=== PATIENT | male | born 2000 | race Caucasian/White ===

== ENCOUNTER 2018-02-13 14:35 | Emergency (ER) | payer OTHER ==
[2018-02-13 15:29] LABS: Absolute Lymphocytes (CBC) 1.4 K/uL (0.7-4.9); Absolute Monocytes 0.7 K/uL (0.1-1.3); Basophils % 0.5 % (0-1.3); Eosinophils % 1.5 % (0-4.4); Hematocrit 45.4 % (39.6-49.0); Lymphocytes % 11.2 % (15.3-44.8); MCH 31.4 pg (27.0-35.0); MCV 91.4 fL (80-100); MPV 7.3 fL (7.6-11.3); Monocytes % 5.7 % (3.3-12.3); RBC Red Blood Cell Count 4.97 M/uL (4.33-5.43)
[2018-02-13 15:35] LABS: Barbiturates NEGATIVE (NEGATIVE); Benzodiazepines NEGATIVE (NEGATIVE); Cocaine NEGATIVE (NEGATIVE); METHAMPHETAM NEGATIVE (NEGATIVE); Methadone NEGATIVE (NEGATIVE); Opiates NEGATIVE (NEGATIVE); Phencyclidine NEGATIVE (NEGATIVE); THC Cannibis POSITIVE (NEGATIVE)
[2018-02-13 15:37] LABS: Protime INR 0.96
[2018-02-13 16:11] LABS: ALT/SGPT 30 U/L (12-78); AST/SGOT 20 U/L (15-37); Albumin 4.8 g/dL (3.4-5.0); Alkaline Phosphatase 88 U/L (45-117); BUN Blood Urea Nitrogen 6 mg/dL (7-18); Bicarbonate 26 mmol/L (21-32); Bilirubin Direct < 0.1 mg/dL (0-0.2); Bilirubin Total 0.5 mg/dL (0.2-1.0); Glucose Level 108 mg/dL (74-106); Potassium 3.5 mmol/L (3.5-5.1); Protein, Total 8.3 g/dL (6.4-8.2); Sodium Level 141 mmol/L (136-145)
[2018-02-13 16:12] LABS: Alcohol Serum/Plasma < 3 mg/dL (0-3)
--- NOTE | 2018-02-13 16:19 | EKG ---
Test Date: 2018-02-13 Test Time: 15:04:12 History Department Chair: ZHEN MEASUREMENT RESULTS: Intervals: Rate: 127 ID: [id number] QRSD: 98 QT: 296 QTc: 430 [place]: P: 67 ID: [id number] QRS: 33 T: 45 INTERPRETIVE STATEMENTS: Sinus tachycardia Otherwise normal ECG No previous ECG available for comparison Electronically Signed On 02-13-18 16:19:39 CDT by Juan Miguel Garcia
[2018-02-13 16:38] LABS: Urine Blood NEGATIVE (NEG); Urine Glucose NEGATIVE (NEG); Urine Protein 2+ (NEG); Urine Specific Gravity 1.025 (1.005-1.030); Urine pH 6.5 (5.0-7.0)
--- NOTE | 2018-02-13 21:40 | ER ---
Nurse's Notes [facility] Name: Gerber Willis Jr Age: 17 yrs Sex: Male : 2000 Arrival Date: 02/13/2018 Time: 14:38 Bed 20 Private MD: Diagnosis: Intentional self-harm by other sharp object;Suicidal ideations;Borderline personality disorder Presentation: 02/13 14:51 Presenting complaint: Presenting complaint: Patient states: cut his girlfriend's name iw "Betty" into his left thigh, used a screw, superficial lacerations noted to left thigh. Pt denies suicidal ideation, denies homicidal ideation, states "I was just upset and after I did it, I thought about how stupid it was". 15:00 Transition of care: patient was not received from another setting of care. Onset of iw symptoms was February 13, 2018. Risk Assessment: Do you want to hurt yourself or someone else? Other: pt denies desire to hurt himself or someone else but has lacerations to left thigh from self mutilation. Initial Sepsis Screen: Does the patient meet any 2 criteria? No. Patient's initial sepsis screen is negative. Does the patient have a suspected source of infection? No. Patient's initial sepsis screen is negative. Care prior to arrival: None. 15:00 Method Of Arrival: Ambulatory iw 15:00 Method Of Arrival: Law Enforcement: Mayra MAYS iw 15:00 Acuity: MORIS 3 iw Triage Assessment: 15:00 General: Appears in no apparent distress. uncomfortable, Behavior is calm, cooperative. jl7 Pain: Denies pain. EENT: No signs and/or symptoms were reported regarding the EENT system. Neuro: Level of Consciousness is awake, alert, obeys commands, Oriented to person, place, time, situation. Cardiovascular: Heart tones S1 S2 present Patient's skin is warm and dry. Respiratory: Airway is patent Respiratory effort is even, unlabored, Respiratory pattern is regular, symmetrical, Breath sounds are clear bilaterally. GI: No signs and/or symptoms were reported involving the gastrointestinal system. : No signs and/or symptoms were reported regarding the genitourinary system. Derm: Skin is pink, warm \\T\\ dry. Musculoskeletal: No signs and/or symptoms reported regarding the musculoskeletal system. Injury Description: Pt made superficial scratches, spelling out Betty and 9-10[birth year]17 on left upper thigh. Historical: - Allergies: 15:07 NKA; iw - Home Meds: 15:07 paliperidone 3 mg oral tr24 1 tab once daily [Active]; benztropine 1 mg Oral tab 1 tab iw once daily [Active]; chlorpromazine 100 mg Oral tab [Active]; guanfacine 2 mg Oral tab 1 tab once daily [Active]; Concerta 36 mg Oral tr24 1 tab once daily [Active]; - PMHx: 15:07 ADD/ADHD; Bipolar disorder; iw - PSHx: 15:07 None; iw - Immunization history:: Adult Immunizations not up to date. - Social history:: Smoking status: Patient uses tobacco products, smokes one pack cigarettes per day. Patient uses street drugs, marijuana. - Ebola Screening: : Patient negative for fever greater than or equal to 101.5 degrees Fahrenheit, and additional compatible Ebola Virus Disease symptoms Patient denies exposure to infectious person Patient denies travel to an Ebola-affected area in the 21 days before illness onset No symptoms or risks identified at this time. Screenin:30 Abuse screen: Denies threats or abuse. Denies injuries from another. Nutritional jl7 screening: No deficits noted. Tuberculosis screening: No symptoms or risk factors identified. Fall Risk IV access (20 points). Total Cronin Fall Scale indicates No Risk (0-24 pts). Assessment: 15:00 General: See triage assessment. Pain: Denies pain. jl7 16:00 Reassessment: Patient and/or family updated on plan of care and expected duration. Pain jl7 level reassessed. Patient is alert, oriented x 3, equal unlabored respirations, skin warm/dry/pink. 17:00 Reassessment: Patient and/or family updated on plan of care and expected duration. Pain jl7 level reassessed. Patient is alert, oriented x 3, equal unlabored respirations, skin warm/dry/pink. 17:30 Reassessment: Pt requesting to go home. Explained to pt he will have to wait for [address] personnel to assess before we know how long he will be staying with us. Pt verbalized understanding. 18:30 Reassessment: Pt sitting on bed watching TV, no signs of distress noted. Pt requested jl7 to go outside a smoke. Explained to pt this is a non-smoking campus and offered a nicotine patch, Pt refuses nicotine patch at this time. 19:10 Reassessment: Report received from [facility] Solares. General: Appears in no apparent bs1 distress. comfortable, slender, Behavior is cooperative, anxious. Pain: Denies pain. Neuro: Level of Consciousness is awake, alert, obeys commands. Cardiovascular: Denies chest pain, shortness of breath, Heart tones S1 S2 present Capillary refill < 3 seconds Patient's skin is warm and dry. Respiratory: Airway is patent Trachea midline Respiratory effort is even, unlabored, Respiratory pattern is regular, symmetrical, Breath sounds are clear bilaterally. GI: No signs and/or symptoms were reported involving the gastrointestinal system. : No signs and/or symptoms were reported regarding the genitourinary system. EENT: No signs and/or symptoms were reported regarding the EENT system. Derm: Derm: Skin superficial skin lacerations noted to left thigh. Musculoskeletal:. Musculoskeletal: Circulation, motion, and sensation intact. Capillary refill < 3 seconds, Range of motion: intact in all extremities. 19:58 Reassessment: Left thigh cleansed with NS, wrapped in gauze/kerlix. Patient tolerated/. bs1 21:00 Reassessment: No changes from previously documented assessment. Patient and/or family bs1 updated on plan of care and expected duration. Pain level reassessed. Patient is alert, oriented x 3, equal unlabored respirations, skin warm/dry/pink. 22:15 Reassessment: No changes from previously documented assessment. Patient and/or family bs1 updated on plan of care and expected duration. Pain level reassessed. Patient is alert, oriented x 3, equal unlabored respirations, skin warm/dry/pink. Waiting for family to pick patient up. Informed patient of dc instructions. Gave instructions to follow up with [place]/PCP. Patient states understanding of POC. Psych: 15:00 Subjective: Patient's mood is Calm Delusions are denied, Hallucinations are denied jl7 Having thoughts of denies suicidal and/or homicidal ideation. Objective: Patient is cooperative, Speech is normal, Affect is appropriate, Patient has mutilated themselves by Pt scratched ex-girlfriends name in right upper thigh. Interventions: Removed personal items and placed in bag. Patient placed in hospital gown. Searched person for dangerous items. Urine collected and sent for urine drug test. Belonging list filled out. Suicide Risk Assessment: Sad Person Scale: Sex of patient: Male: Score 1 point. Age of patient: Score 1 point if patient 15-34. Depression: Score 1 point if signs of depression are present. Previous Attempt: Score 0 point if patient has not previously attempted suicide. Substance Abuse: Score 1 point if patient abuses alcohol or drugs. Rational Thinking: Score 0 point if patient has rational thinking. Social Support: Score 0 if social support is present/available. Organized Plan: Score 0 if patient did not have an organized plan in place. Relationship: Score 1 point if patient is , , , or for a single male Chronic Sickness: Score 0 point if patient does not have a chronic illness, debilitating, or severe disorder. TOTAL POINTS: If total points are 5-6, proposed clinical action is to strongly consider hospitalization, depending upon confidence in the follow-up arrangement. Implement suicide precautions. Safety Checks: Personal items have been removed. Door is open. No visitors are present at this time. Patient uses marijuana "Occasionally". Commitment: Patient will be an involuntary commitment. Vital Signs: 15:00 BP 122 / 58; Pulse 115; Resp 16; Temp 98.5; Pulse Ox 97% ; Weight 95.25 kg; Height 5 jl7 ft. 11 in. (180.34 cm); Pain 0/10; 19:30 BP 115 / 77; Pulse 95; Resp 19; Temp 98.8(O); Pulse Ox 97% on R/A; bs1 22:20 BP 133 / 81; Pulse 84; Resp 18; Temp 98.6(O); Pulse Ox 95% on R/A; Pain 0/10; bs1 15:00 Body Mass Index 29.29 (95.25 kg, 180.34 cm) jl7 ED Course: 14:38 Patient arrived in ED. iw 14:39 Roslyn Hale, RN is Primary Nurse. iw 14:43 Sujahta Valdez, [facility] is Primary Nurse. jl7 14:49 Sacha Witt PA is PHCP. cp 14:49 Jaxson Quinonez MD is Attending Physician. cp 15:00 Arm band placed on right wrist. jl7 15:00 Patient has correct armband on for positive identification. Placed in gown. Bed in low jl7 position. Side rails up X 1. Warm blanket given. Patient is placed in psych hold. 15:03 Triage completed. iw 15:11 EKG done, by lab support service tech. reviewed by Sacha WILKINSON. 3 15:30 Initial lab(s) drawn, by me, sent to lab. Urine collected: clean catch specimen, clear. jl7 Inserted saline lock: 20 gauge in right antecubital area, using aseptic technique. Blood collected. 16:00 Safety checks: Items removed: yes. Door open/sign placed on door: yes. Family/friend mp1 present: no. Sitter present: Yes. 16:15 Safety checks: Items removed: yes. Door open/sign placed on door: yes. Family/friend mp1 present: no. Sitter present: Yes. 16:30 Safety checks: Items removed: yes. Door open/sign placed on door: yes. Family/friend mp1 present: no. Sitter present: Yes. 16:45 Safety checks: Items removed: yes. Door open/sign placed on door: yes. Family/friend mp1 present: yes. Sitter present: Yes. 17:00 Safety checks: Items removed: yes. Door open/sign placed on door: yes. Family/friend mp1 present: yes. Sitter present: Yes. 17:00 called and spoke with Liz at the [facility] to page out one of her screeners eb to come evaluate the patient for potential transfer. 17:15 Safety checks: Items removed: yes. Door open/sign placed on door: yes. Family/friend mp1 present: no. Sitter present: Yes. 17:30 Safety checks: Items removed: yes. Door open/sign placed on door: yes. Family/friend mp1 present: no. Sitter present: Yes. 17:45 Safety checks: Items removed: yes. Door open/sign placed on door: yes. Family/friend mp1 present: no. Sitter present: Yes. 18:00 Safety checks: Items removed: yes. Door open/sign placed on door: yes. Family/friend mp1 present: no. Sitter present: Yes. 18:15 Safety checks: Items removed: yes. Door open/sign placed on door: yes. Family/friend mp1 present: yes. no. Sitter present: Yes. 18:17 Breezy Malone MD is Attending Physician. cp 18:29 Safety checks: Items removed: yes. Door open/sign placed on door: yes. Family/friend mp1 present: yes. Sitter present: Yes. 18:45 Safety checks: Items removed: yes. Door open/sign placed on door: yes. Family/friend mp1 present: no. Sitter present: Yes. 18:49 called and spoke with Diamond at the [facility] to check on the ETA of the eb screener. She says she has no way on checking when they will be here but that she will notify the screener that i am calling for ETA. 18:56 Safety checks: Items removed: yes. Door open/sign placed on door: yes. Family/friend mp1 present: yes. no. Sitter present: Yes. 19:08 Safety Checks: Personal items have been removed. The door is open or patient has been er placed in a hallway bed/chair. A family member and/or friend is present and encouraged to stay. Sitter present at this time. 19:10 Primary Nurse role handed off by Sujatha Valdez RN rg2 19:30 Safety Checks: Personal items have been removed. The door is open or patient has been er placed in a hallway bed/chair. There are no family/friend visitors at this time Sitter present at this time. Pt is sleeping. 19:36 Nelly Casper RN is Primary Nurse. bs1 19:49 Safety Checks: Personal items have been removed. The door is open or patient has been er placed in a hallway bed/chair. Sitter present at this time. Vitals signs taken. 20:00 Safety Checks: Personal items have been removed. The door is open or patient has been er placed in a hallway bed/chair. There are no family/friend visitors at this time Sitter present at this time. Pt is watching tv. 20:16 Safety Checks: Personal items have been removed. The door is open or patient has been er placed in a hallway bed/chair. Sitter present at this time. 20:30 Safety Checks: Personal items have been removed. The door is open or patient has been er placed in a hallway bed/chair. There are no family/friend visitors at this time Sitter present at this time. Pt is sleeping. 20:45 Safety Checks: Personal items have been removed. The door is open or patient has been er placed in a hallway bed/chair. There are no family/friend visitors at this time Sitter present at this time. Pt went to the restroom. 20:59 Safety Checks: Personal items have been removed. The door is open or patient has been er placed in a hallway bed/chair. There are no family/friend visitors at this time Sitter present at this time. Pt is awake, watching tv. 21:14 Safety Checks: Personal items have been removed. The door is open or patient has been er placed in a hallway bed/chair. There are no family/friend visitors at this time Sitter present at this time. Pt is watching tv. 21:31 Safety Checks: Personal items have been removed. The door is open or patient has been er placed in a hallway bed/chair. There are no family/friend visitors at this time Sitter present at this time. pt watching tv. 21:42 Safety Checks: Personal items have been removed. The door is open or patient has been er placed in a hallway bed/chair. There are no family/friend visitors at this time Sitter present at this time. pt is awake. 21:59 Safety Checks: Personal items have been removed. The door is open or patient has been er placed in a hallway bed/chair. There are no family/friend visitors at this time Sitter present at this time. 22:14 Safety Checks: Personal items have been removed. The door is open or patient has been er placed in a hallway bed/chair. There are no family/friend visitors at this time Sitter present at this time. 22:21 No provider procedures requiring assistance completed. IV discontinued, bleeding bs1 controlled, No redness/swelling at site. Pressure dressing applied. 22:25 Safety Checks: Personal items have been removed. The door is open or patient has been er placed in a hallway bed/chair. A family member and/or friend is present and encouraged to stay. Sitter present at this time. Administered Medications: No medications were administered Outcome: 21:39 Discharge ordered by MD. chan 22:21 Condition: stable bs1 22:33 Patient left the ED. bs1 Signatures: Beka Dunbar rg2 Roslyn Hale, RN RN Sacha Witt PA PA cp Leal, Jahala RN RN jl7 Breezy Malone MD MD Nelly Casper RN RN bs1 Aneta Camacho Shakira 3 Ayanna Barrett mp1 Natalia Alvarez Corrections: (The following items were deleted from the chart) 15:03 14:51 Presenting complaint: [facility] 17:06 16:45 Safety checks: Items removed: yes. Door open/sign placed on door: yes. mp1 Family/friend present: no. Sitter present: Yes. mp1 18:46 18:30 General: Appears in no apparent distress. uncomfortable, Behavior is calm, jl7 cooperative, jl7 19:58 19:10 Derm: Skin is intact, bs1 bs1
--- NOTE | 2018-02-13 21:40 | EDPHYS ---
Physician Documentation [facility] Name: Gerber Willis Jr Age: 17 yrs Sex: Male : 2000 Arrival Date: 02/13/2018 Time: 14:38 Bed 20 Private MD: ED Physician Breezy Malone HPI: 02/13 15:20 This 17 yrs old Male presents to ER via Law Enforcement with complaints of cp Psych Problem. 15:20 The patient presents to the emergency department with suicide ideation. Onset: The cp symptoms/episode began/occurred today. Past psychiatric history: Prior diagnosis: bipolar disorder, Psychiatric medications include: none. Patient was brought to ED by law enforcement after being called by ex-girlfriend of patient. Law enforcement report patient told them he wanted to kill himself. Patient reports he became upset today due to recent break-up with girlfriend and carved her name and date they met in left upper leg. Historical: - Allergies: 15:07 NKA; iw - Home Meds: 15:07 paliperidone 3 mg oral tr24 1 tab once daily [Active]; benztropine 1 mg Oral tab 1 tab iw once daily [Active]; chlorpromazine 100 mg Oral tab [Active]; guanfacine 2 mg Oral tab 1 tab once daily [Active]; Concerta 36 mg Oral tr24 1 tab once daily [Active]; - PMHx: 15:07 ADD/ADHD; Bipolar disorder; iw - PSHx: 15:07 None; iw - Immunization history:: Adult Immunizations not up to date. - Social history:: Smoking status: Patient uses tobacco products, smokes one pack cigarettes per day. Patient uses street drugs, marijuana. - Ebola Screening: : Patient negative for fever greater than or equal to 101.5 degrees Fahrenheit, and additional compatible Ebola Virus Disease symptoms Patient denies exposure to infectious person Patient denies travel to an Ebola-affected area in the 21 days before illness onset No symptoms or risks identified at this time. ROS: 15:25 Constitutional: Negative for body aches, chills, fever, poor PO intake. cp 15:25 Eyes: Negative for injury, pain, redness, and discharge. cp 15:25 ENT: Negative for drainage from ear(s), ear pain, sore throat, difficulty swallowing, difficulty handling secretions. 15:25 Cardiovascular: Negative for chest pain, palpitations. 15:25 Respiratory: Negative for cough, shortness of breath, wheezing. 15:25 Abdomen/GI: Negative for abdominal pain, nausea, vomiting, and diarrhea. 15:25 Skin: Positive for laceration(s), of the left upper anterior leg. 15:25 Neuro: Negative for altered mental status, loss of consciousness. 15:25 All other systems are negative. Exam: 15:15 ECG was reviewed by the Attending Physician. cp 15:30 Constitutional: The patient appears in no acute distress, alert, awake, non-toxic, well cp developed, well nourished. 15:30 Head/Face: Normocephalic, atraumatic. cp 15:30 Eyes: Periorbital structures: appear normal, Conjunctiva: normal, no exudate, no injection, Lids and lashes: appear normal, bilaterally. 15:30 ENT: External ear(s): are unremarkable, Nose: is normal, Mouth: is normal, Posterior pharynx: is normal, airway is patent, no erythema, no exudate. 15:30 Neck: ROM/movement: is normal, is supple, without pain, no range of motions limitations, no nuchal rigidity. 15:30 Chest/axilla: Inspection: normal, Palpation: is normal, no crepitus, no tenderness. 15:30 Cardiovascular: Rate: normal, Rhythm: regular. 15:30 Respiratory: the patient does not display signs of respiratory distress, Respirations: normal, no use of accessory muscles, no retractions, no splinting, no tachypnea, labored breathing, is not present, Breath sounds: are clear throughout, no decreased breath sounds, no stridor, no wheezing. 15:30 Abdomen/GI: Inspection: abdomen appears normal, Palpation: abdomen is soft and non-tender, in all quadrants. 15:30 Skin: injury, laceration(s), superficial words "AYLIN 04-17-17" anterior aspect left upper leg, that can be described as without bleeding. 21:36 Psych: Behavior/mood is pt seen and examined by me at 2140. Affect is calm, Oriented to gs person, place, time, Patient has no thoughts/intents to harm self or others. said regrets injury to self has cut self before and exactly like this time was truly in frustration not intending to kill self, Judgement / Insight is normal. Delusions/hallucinations are not present. pts crisis has terminated wants to go home, there is no access to firearms says will seek counseling and will go home with parents. Vital Signs: 15:00 BP 122 / 58; Pulse 115; Resp 16; Temp 98.5; Pulse Ox 97% ; Weight 95.25 kg; Height 5 jl7 ft. 11 in. (180.34 cm); Pain 0/10; 19:30 BP 115 / 77; Pulse 95; Resp 19; Temp 98.8(O); Pulse Ox 97% on R/A; bs1 22:20 BP 133 / 81; Pulse 84; Resp 18; Temp 98.6(O); Pulse Ox 95% on R/A; Pain 0/10; bs1 15:00 Body Mass Index 29.29 (95.25 kg, 180.34 cm) jl7 MDM: 14:50 Patient medically screened. 17:00 Data reviewed: vital signs, nurses notes, EKG, and as a result, I will will contact [facility] for evaluation. 02/13 14:56 Order name: Acetaminophen; Complete Time: 16:53 02/13 14:56 Order name: Basic Metabolic Panel; Complete Time: 16:53 02/13 14:56 Order name: CBC with Diff; Complete Time: 16:53 02/13 14:56 Order name: ETOH Level; Complete Time: 16:53 02/13 14:56 Order name: Hepatic Function; Complete Time: 16:53 02/13 14:56 Order name: PT-INR; Complete Time: 16:53 02/13 14:56 Order name: Ptt, Activated; Complete Time: 16:53 02/13 14:56 Order name: Salicylate; Complete Time: 16:53 02/13 14:56 Order name: Urine Drug Screen; Complete Time: 16:53 02/13 14:56 Order name: EKG; Complete Time: 14:57 02/13 14:56 Order name: EKG - Nurse/Tech; Complete Time: 16:12 02/13 14:56 Order name: IV Saline Lock; Complete Time: 16:12 02/13 15:38 Order name: Urine Dipstick--Ancillary (enter results); Complete Time: 16:53 eb 02/13 16:45 Order name: Diet Regular; Complete Time: 16:45 aj 02/13 14:56 Order name: Labs collected and sent; Complete Time: 16:12 cp 02/13 14:56 Order name: Urine Dipstick-Ancillary (obtain specimen); Complete Time: 16:12 cp 02/13 17:48 Order name: Wound Care: please clean and dress wound; Complete Time: 19:58 cp EC:15 Rate is 127 beats/min. Rhythm is regular. NC interval is normal. QRS interval is cp normal. QT interval is normal. Interpreted by me. Reviewed by me. Administered Medications: No medications were administered Disposition: 02/13/18 21:39 Discharged to Home. Impression: Intentional self-harm by other sharp object, Suicidal ideations, Borderline personality disorder. - Condition is Stable. - Discharge Instructions: Depression, Adult, Laceration Care, Adult, [id number], No-harm Safety Contract, Borderline Personality Disorder. - Medication Reconciliation Form, Thank You Letter, Antibiotic Education, Prescription Opioid Use form. - Follow up: Private Physician; When: 2 - 3 days; Reason: Re-evaluation by your physician. Addendum: 02/20/2018 07:13 Co-signature as Attending Physician, Breezy Malone MD. g s Signatures: Dispatcher [employer] Roslyn Haskins RN RN Sacha Goel PA PA cp Leal, Jahala, RN RN jl7 Breezy Malone MD MD gs Salazar, Brittany, RN RN bs1 Corrections: (The following items were deleted from the chart) 02/13 22:33 21:39 02/13/2018 21:39 Discharged to Home. Impression: Intentional self-harm by other bs1 sharp object; Suicidal ideations; Borderline personality disorder. Condition is Stable. Forms are Medication Reconciliation Form, Thank You Letter, Antibiotic Education, Prescription Opioid Use. Follow up: Private Physician; When: 2 - 3 days; Reason: Re-evaluation by your physician. gs
== END 2018-02-13 22:33 | disposition home or self-care (01) ==
LOC: ER 14:35
DX: F60.3 Borderline personality disorder (principal); X78.8XXA Intentional self-harm by other sharp object, initial encounter; R45.851 Suicidal ideations; F31.9 Bipolar disorder, unspecified; F17.210 Nicotine dependence, cigarettes, uncomplicated; Y93.89 Activity, other specified; Y92.9 Unspecified place or not applicable; Y99.9 Unspecified external cause status
CPT/HCPCS: 36415; 80048; 80076; 80307; 80320; 80329; 81003; 85025; 85610; 85730; 93005; 99284

== ENCOUNTER 2020-02-07 02:52 | Emergency (ER) | payer OTHER ==
--- OUTSIDE RECORDS SUMMARY | 2020-02-07 02:54 | XMS REPORT | Continuity of Care Document ---
:2000 Author Organization [facility] t Address [address] [place] [address] Care Team Providers Name Role Phone Lina KING S Attending Clinician Problems This patient has no known problems. Allergies, Adverse Reactions, Alerts This patient has no known allergies or adverse reactions. Medications This patient has no known medications. Procedures This patient has no known procedures. Encounters Start End Encounter Admission Attending Care Care Encounter Source Date/Time Date/Time Type Type Clinicians Facility Department ID 2019-10-28 2019-10-28 Emergency [facility] [id number] 03:52:43 04:10:00 Juan Antonio Sotelo [id number] [place] [id number] [place] [id number] Results This patient has no known results.
[2020-02-07] MEDS ORDERED: MUPIROCIN 2% OINT 22GM TUBE TOP ONE (03:29)
[2020-02-07] MEDS ORDERED: IBUPROFEN 200 MG TAB PO ONE (03:29)
[2020-02-07] MEDS ORDERED: SMZ./TMP. 800/160 MG TABLET ONE (03:29)
[2020-02-07] MEDS ORDERED: DOXYCYCLINE 100 MG CAP PO ONE (03:29)
--- NOTE | 2020-02-07 03:33 | EDPHYS ---
Physician Documentation [facility] Name: Gerber Willis Jr Age: 19 yrs Sex: Male : 2000 Arrival Date: 02/07/2020 Time: 02:55 Bed 7 Private MD: LILLIAN Physician Sacha Arita HPI: 02/06 03:22 This 19 yrs old Male presents to ER via Ambulatory with complaints of Insect yvette Bite. 03:22 The patient presents with an abscess of the back, The patient presents with cellulitis yvette of the back. Description: The affected area is small, confluent, localized, erythematous, fluctuant. Onset: The symptoms/episode began/occurred 3 day(s) ago. Possible cause(s): unknown, insect sting. Associated signs and symptoms: The patient has no apparent associated signs or symptoms. Modifying factors: the symptoms are alleviated by remaining still, the symptoms are aggravated by pressure, squeezing the lesion and expressing the contents, touching. Severity of symptoms: At their worst the symptoms were mild, in the emergency department the symptoms are unchanged. The patient has not experienced similar symptoms in the past. Historical: - Allergies: 02:59 NKA; sg - PMHx: 02:59 ADD/ADHD; Bipolar disorder; sg - PSHx: 02:59 None; sg - Immunization history:: Adult Immunizations up to date. - Social history:: Smoking status: Patient denies any tobacco usage or history of. - Family history:: not pertinent. ROS: 03:22 Constitutional: Negative for fever, chills, and weight loss, Eyes: Negative for injury, yvette pain, redness, and discharge, ENT: Negative for injury, pain, and discharge, Neck: Negative for injury, pain, and swelling, Cardiovascular: Negative for chest pain, palpitations, and edema, Respiratory: Negative for shortness of breath, cough, wheezing, and pleuritic chest pain, Abdomen/GI: Negative for abdominal pain, nausea, vomiting, diarrhea, and constipation, Back: Negative for injury and pain, : Negative for injury, bleeding, discharge, and swelling, MS/Extremity: Negative for injury and deformity, Neuro: Negative for headache, weakness, numbness, tingling, and seizure, Psych: Negative for depression, anxiety, suicide ideation, homicidal ideation, and hallucinations, Allergy/Immunology: Negative for hives, rash, and allergies, Endocrine: Negative for neck swelling, polydipsia, polyuria, polyphagia, and marked weight changes, Hematologic/Lymphatic: Negative for swollen nodes, abnormal bleeding, and unusual bruising. 03:22 Skin: Positive for cellulitis, erythema, swelling, of the right mid back. Exam: 03:22 Constitutional: This is a well developed, well nourished patient who is awake, alert, yvette and in no acute distress. Head/Face: Normocephalic, atraumatic. Eyes: Pupils equal round and reactive to light, extra-ocular motions intact. Lids and lashes normal. Conjunctiva and sclera are non-icteric and not injected. Cornea within normal limits. Periorbital areas with no swelling, redness, or edema. ENT: Nares patent. No nasal discharge, no septal abnormalities noted. Tympanic membranes are normal and external auditory canals are clear. Oropharynx with no redness, swelling, or masses, exudates, or evidence of obstruction, uvula midline. Mucous membranes moist. Neck: Trachea midline, no thyromegaly or masses palpated, and no cervical lymphadenopathy. Supple, full range of motion without nuchal rigidity, or vertebral point tenderness. No Meningismus. Chest/axilla: Normal chest wall appearance and motion. Nontender with no deformity. No lesions are appreciated. Cardiovascular: Regular rate and rhythm with a normal S1 and S2. No gallops, murmurs, or rubs. Normal PMI, no JVD. No pulse deficits. Respiratory: Lungs have equal breath sounds bilaterally, clear to auscultation and percussion. No rales, rhonchi or wheezes noted. No increased work of breathing, no retractions or nasal flaring. Abdomen/GI: Soft, non-tender, with normal bowel sounds. No distension or tympany. No guarding or rebound. No evidence of tenderness throughout. Back: No spinal tenderness. No costovertebral tenderness. Full range of motion. Male : Normal genitalia with no discharge or lesions. MS/ Extremity: Pulses equal, no cyanosis. Neurovascular intact. Full, normal range of motion. Neuro: Awake and alert, GCS 15, oriented to person, place, time, and situation. Cranial nerves II-XII grossly intact. Motor strength 5/5 in all extremities. Sensory grossly intact. Cerebellar exam normal. Normal gait. Psych: Awake, alert, with orientation to person, place and time. Behavior, mood, and affect are within normal limits. 03:22 Skin: abscess, that is small, approximately 1.5 cm(s), with fluctuance, with induration, with pointing, cellulitis, that is minimal, induration, that is mild is noted, that is moderate is noted, injury, is not appreciated, no rash present. Turgor: is excellent. Vital Signs: 03:16 BP 112 / 67; Pulse 85; Resp 18; Temp 98.6; Pulse Ox 95% on R/A; Height 5 ft. 11 in. mg2 (180.34 cm); MDM: 03:11 Patient medically screened. yvette 03:30 Differential diagnosis: abscess, cellulitis, insect bite. Data reviewed: vital signs, yvette nurses notes. Data interpreted: awake overnight monitor: not applicable for this patient encounter. rate is 85 beats/min, rhythm is regular, Pulse oximetry: on room air is 95 %. Counseling: I had a detailed discussion with the patient and/or guardian regarding: the historical points, exam findings, and any diagnostic results supporting the discharge/admit diagnosis, the need for outpatient follow up, for definitive care, a general surgeon. 03:34 ED course: explained moist warm compresses, follow up or return if symptoms worsen or yvette persist. Administered Medications: 03:23 Drug: Doxycycline 200 mg Route: PO; mg2 03:38 Follow up: Response: No adverse reaction; Medication administered at discharge. mg2 03:23 Drug: Bactrim (160 mg-800 mg (DS) 1 tablet Route: PO; mg2 03:38 Follow up: Response: No adverse reaction; Medication administered at discharge. mg2 03:23 Drug: Motrin 600 mg Route: PO; mg2 03:38 Follow up: Response: No adverse reaction; Medication administered at discharge. mg2 03:23 Drug: Bactroban Ointment 2 % 1 application Route: Topical; Site: affected area; mg2 03:38 Follow up: Response: No adverse reaction mg2 Disposition: 02/07/20 03:32 Discharged to Home. Impression: Cutaneous abscess of back [any part, except buttock]. - Condition is Stable. - Discharge Instructions: Skin Abscess, Cellulitis, Adult, Skin Abscess, [id number], Cellulitis, Adult, [id number]. - Prescriptions for Bactroban 2 % Topical Ointment - Apply to affected area 1 application by TOPICAL route every 12 hours; 15 gram. Doxycycline Hyclate 100 mg Oral Tablet - take 1 tablet by ORAL route every 12 hours; 20 tablet. Bactrim DS 800- 160 mg Oral Tablet - take 1 tablet by ORAL route every 12 hours for 10 days; 20 tablet. Ibuprofen 600 mg Oral Tablet - take 1 tablet by ORAL route every 6 hours As needed take with food; 20 tablet. - Medication Reconciliation Form, Thank You Letter, Antibiotic Education, Prescription Opioid Use form. - Follow up: Private Physician; When: 2 - 3 days; Reason: Recheck today's complaints, Continuance of care, Re-evaluation by your physician. Follow up: Torito Allan MD; When: 2 - 3 days; Reason: Recheck today's complaints, Re-evaluation by your physician. - Problem is new. - Symptoms have improved. Signatures: Russel Choudhury RN RN sg Sacha Arita MD MD cha Gardose, Michele, RN RN mg2 Corrections: (The following items were deleted from the chart) 03:39 03:32 02/07/2020 03:32 Discharged to Home. Impression: Cutaneous abscess of back [any mg2 part, except buttock]. Condition is Stable. Forms are Medication Reconciliation Form, Thank You Letter, Antibiotic Education, Prescription Opioid Use. Follow up: Private Physician; When: 2 - 3 days; Reason: Recheck today's complaints, Continuance of care, Re-evaluation by your physician. Follow up: Torito Allan; When: 2 - 3 days; Reason: Recheck today's complaints, Re-evaluation by your physician. Problem is new. Symptoms have improved. yvette
--- NOTE | 2020-02-07 03:33 | ER ---
Nurse's Notes [facility] Name: Gerber Willis Jr Age: 19 yrs Sex: Male : 2000 Arrival Date: 02/07/2020 Time: 02:55 Bed 7 Private MD: Diagnosis: Cutaneous abscess of back [any part, except buttock] Presentation: 02/06 02:59 Onset of symptoms was February 07, 2020. Care prior to arrival: None. 02:59 Acuity: MORIS 4 sg 02:59 Chief complaint: Patient states: I think some sore of bug bit me, I have this spot that sg I need the doctor to look at. Coronavirus screen: Proceed with normal triage. Ebola Screen: Patient negative for fever greater than or equal to 101.5 degrees Fahrenheit, and additional compatible Ebola Virus Disease symptoms Patient denies exposure to infectious person. Patient denies travel to an Ebola-affected area in the 21 days before illness onset. No symptoms or risks identified at this time. Initial Sepsis Screen: Does the patient meet any 2 criteria? No. Patient's initial sepsis screen is negative. Does the patient have a suspected source of infection? No. Patient's initial sepsis screen is negative. Risk Assessment: Do you want to hurt yourself or someone else? Patient reports no desire to harm self or others. 02:59 Method Of Arrival: Ambulatory sg Triage Assessment: 03:16 Bite description: animal information: vaccination(s) is unknown. Bite description: bite mg2 sustained to back by an unknown animal. General: Appears in no apparent distress. comfortable. Historical: - Allergies: 02:59 NKA; sg - PMHx: 02:59 ADD/ADHD; Bipolar disorder; sg - PSHx: 02:59 None; sg - Immunization history:: Adult Immunizations up to date. - Social history:: Smoking status: Patient denies any tobacco usage or history of. - Family history:: not pertinent. Screenin:16 Abuse screen: Denies threats or abuse. Abuse screen: Denies injuries from another. mg2 Nutritional screening:. Tuberculosis screening: No symptoms or risk factors identified. Fall Risk None identified. Assessment: 03:15 General: Appears in no apparent distress. comfortable, Behavior is calm, cooperative. mg2 Pain: Complains of pain in back. Neuro: Level of Consciousness is awake, alert, obeys commands, Oriented to person, place, time, situation. Cardiovascular: Capillary refill < 3 seconds Patient's skin is warm and dry. Respiratory: Airway is patent Respiratory effort is even, unlabored, Respiratory pattern is regular, symmetrical. GI: No signs and/or symptoms were reported involving the gastrointestinal system. : No signs and/or symptoms were reported regarding the genitourinary system. EENT: No signs and/or symptoms were reported regarding the EENT system. Derm: Skin is pink, warm \T\ dry. Abscess located on back is quarter sized, is hot to touch, is red, is raised. Musculoskeletal: Circulation, motion, and sensation intact. Capillary refill < 3 seconds. 03:39 Derm: Skin. mg2 Vital Signs: 03:16 BP 112 / 67; Pulse 85; Resp 18; Temp 98.6; Pulse Ox 95% on R/A; Height 5 ft. 11 in. mg2 (180.34 cm); ED Course: 02:55 Patient arrived in ED. bp1 02:59 Arm band placed on. sg 03:00 Triage completed. sg 03:01 Sacha Arita MD is Attending Physician. yvette 03:15 Carroll Cuellar, [place] is Primary Nurse. mg2 03:16 Patient has correct armband on for positive identification. mg2 03:16 No provider procedures requiring assistance completed. Patient did not have IV access mg2 during this emergency room visit. 03:31 Torito Allan MD is Referral Physician. yvette Administered Medications: 03:23 Drug: Doxycycline 200 mg Route: PO; mg2 03:38 Follow up: Response: No adverse reaction; Medication administered at discharge. mg2 03:23 Drug: Bactrim (160 mg-800 mg (DS) 1 tablet Route: PO; mg2 03:38 Follow up: Response: No adverse reaction; Medication administered at discharge. mg2 03:23 Drug: Motrin 600 mg Route: PO; mg2 03:38 Follow up: Response: No adverse reaction; Medication administered at discharge. mg2 03:23 Drug: Bactroban Ointment 2 % 1 application Route: Topical; Site: affected area; mg2 03:38 Follow up: Response: No adverse reaction mg2 Outcome: 03:32 Discharge ordered by . yvette 03:39 Discharged to home ambulatory. mg2 03:39 Condition: stable 03:39 Discharge instructions given to patient, Instructed on discharge instructions, follow up and referral plans. medication usage, Demonstrated understanding of instructions, follow-up care, medications, wound care, Prescriptions given X 4. 03:39 Patient left the ED. mg2 Signatures: Russel Choudhury RN RN sg Anderson, Corey, MD MD cha Gardose, Michele, RN RN mg2 Nelly Spain
[2020-02-07 03:47] VITALS: BP 112/67; TEMP 98.6; O2SAT 95
== END 2020-02-07 03:39 | disposition home or self-care (01) ==
LOC: ER 02:52
DX: L02.212 Cutaneous abscess of back [any part, except buttock and flank] (principal)
CPT/HCPCS: 99283

== ENCOUNTER 2020-07-26 21:50 | Observation (INO) | payer OTHER ==
--- OUTSIDE RECORDS SUMMARY | 2020-07-26 21:52 | XMS REPORT | Summary of Care ---
:2000 Author Organization [facility] - [facility] Address [address] [place] [id number] Care Team Providers Name Role Phone Pcp, Does Not Have A Primary Care Provider Reason for Visit Reason Comments Cough Auth/Cert Status Reason Specialty Diagnoses / Referred By Referred To Procedures Contact Contact Emergency [facility]ency Dept [address] [place] [address] Fax: Encounter Details Date Type Department Care Team Description 06/28/2020 Emergency [facility]-Emergency Juan Antonio Mills S, Acute bro nchitis, unspecified organism (Primary Dx); Department Tobacco use [address] [place] [address] Dr [address] [place] [address] [id number] [place] [address] [phone] Allergies Active Allergy Reactions Severity Noted Date Comments Aspirin (Bulk) Swelling 10/27/2016 Tramadol Other - See comments 10/27/2016 Shakes documented as of this encounter (statuses as of 06/28/2020) Medications Medication Sig Dispensed Refills Start Date End Date Status CIPRODEX 0.3-0.1 % OTIC 6 drops to 1 emerita 0 03/17/2007 Active DRPS infetced ear bid for 7 days methylphenidate Take 36 mg by 0 Active (CONCERTA) 36 mg 24 hr mouth every tablet morning. paliperidone (INVEGA) 3 Take 3 mg by 0 Active mg 24 hr tablet mouth daily. benztropine (COGENTIN) Take 1 mg by 0 Active 1 mg tablet mouth 2 (two) times daily. chlorproMAZINE Take 100 mg by 0 Active (THORAZINE) 100 mg mouth 3 (three) tablet times daily. Guanfacine (INTUNIV) 4 Take by mouth. 0 Active mg Tb24 BROMFED DM 2-30-10 mg/5 Take 7.5 mL by 4 oz 0 10/06/2015 Active mL syrup mouth 4 (four) times daily as needed for Congestion/Aller gies. promethazine-codeine Take 5 mL by 120 mL 0 10/06/2018 Active 6.25-10 mg/5 mL mouth 4 (four) syrupIndications: times daily as Flu-like symptoms needed for Cough. sod pknkx-wzidcq-qpttkh Use 1 Bottle in 1 Each 0 10/06/2018 Active bottle (NEILMED SINUS each nostril 2 RINSE COMPLETE) (two) times pkdvIndications: daily. Use in Flu-like symptoms hot shower 1 hour before bedtime benzonatate 200 mg Take 1 capsule 21 capsule 0 06/28/2020 Active capsuleIndications: by mouth 3 Acute bronchitis, (three) times unspecified organism daily as needed for Cough. documented as of this encounter (statuses as of 06/28/2020) Active Problems No known active problemsdocumented as of this encounter (statuses as of 06/28/2020) Immunizations Name Administration Dates Next Due DTAP 03/21/2003, 04/27/1999, 1998, 1998, 1998 HEPATITIS A 03/12/2011, 12/28/2005 HIB 4 Dose Schedule 04/27/1999, 1998, 1998, 1998 HPV9 10/27/2015, 06/25/2015, 04/23/2015 Hep B, Adol or Pedi Dosage 03/14/1999, 1998, 9, 1998 MMR 12/28/2005, 03/21/2003, 04/27/1999 Meningococcal Oligosaccharide (groups 04/23/2015, 03/12/2011 A, C, Y and W-135) conjugate vaccine (MCV4O) Pediarix (dtap/hep B/ipv) 12/28/2005 Pneumococcal 7 Conjugate, PCV7 12/28/2005, 12/29/2000 (Prevnar7) Polio (IPV/OPV) 04/11/2003, 04/27/1999, 1998, 1998, 1998 TDAP 03/12/2011 Td 10/27/2016 Varicella (varivax)(chicken pox) 03/12/2011, 04/27/1999 documented as of this encounter Social History Tobacco Use Types Packs/Day Years Used Date Never Smoker Alcohol Use Drinks/Week oz/Week Comments Not Asked 0 Standard drinks or equivalent 0.0 Sex Assigned at Date Recorded Not on file COVID-19 Exposure Response Date Recorded In the last month, have you been in contact with No / Unsure 06/28/2020 3:10 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 documented as of this encounter Last Filed Vital Signs Vital Sign Reading Time Taken Comments Blood Pressure 130/79 06/28/2020 3:19 AM GRADES 1 THRU 5 TEACHER Pulse 89 06/28/2020 3:19 AM GRADES 1 THRU 5 TEACHER Temperature 35.8 C (96.4 F) 06/28/2020 3:19 AM GRADES 1 THRU 5 TEACHER Respiratory Rate 16 06/28/2020 3:19 AM GRADES 1 THRU 5 TEACHER Oxygen Saturation 98% 06/28/2020 3:19 AM GRADES 1 THRU 5 TEACHER Inhaled Oxygen Concentration - - Weight 74.8 kg (165 lb) 06/28/2020 3:19 AM GRADES 1 THRU 5 TEACHER Height 180.3 cm (5' 11") 06/28/2020 3:19 AM GRADES 1 THRU 5 TEACHER Body Mass Index 23.01 06/28/2020 3:19 AM 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 PROCEDURES IN THE ER TODAY: No orders of the defined types were placed in this encounter. MEDICATIONS ADMINISTERED IN THE ER TODAY AND DISCHARGE MEDICATIONS: Orders Placed This Encounter Medications benzonatate 200 mg capsule FOLLOW-UP RECOMMENDATIONS: RECOMMEND FOLLOW-UP WITH A PRIMARY CARE PROVIDER OR SPECIALIST IN 2-5 DAYS, ESPECIALLY IF NO IMPROVEMENT IN SYMPTOMS. MAY FOLLOW-UP WITH A PROVIDER OF YOUR CHOICE, SUCH : 1. A PHYSICIAN OF YOUR CHOICE 2. [facility], . LOCATIONS IN [facility] 3. [facility], [address] [place] [address]; [phone] OR, IF YOU WISH TO FOLLOW-UP WITHIN THE [facility], MAY TRY THESE OPTIONS (CLINIC APPOINTMENTS AVAILABLE ON HVAG-IO-BSTF BASIS): 1. SCHEDULE AN APPOINTMENT ONLINE AT [facility] 2. OR CALL THE [facility] AT OR 3. OR CALL YOUR [facility] PHYSICIAN'S OFFICE DIRECTLY IF YOU ARE ALREADY AN ESTABLISHED [facility] PATIENT. RETURN TO ER FOR WORSENING OF SYMPTOMS documented in this encounter ED Notes Mitali Hernandez RN - 06/28/2020 3:19 AM CSTNarcisaodilia Greenbergamol Walters is a 20 year old male c/o cough for over a week. Patient has no other complaints at this time. Juan Antonio Renee MD - 06/28/2020 3:12 AM CST [facility] Emergency Department Note Patient Name: Gerber Willis Jr. 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 is a 20 year old male who presented to the ED for evaluation of cough. Pt report that he has been coughing for about one week. Cough occasionally produces greenish phlegm. No fever reported. No sick contacts. Pt is a smoker. Denies any other complaints. No dyspnea reported. No w heezing Past Medical History/Immunizations: Past Medical History: Diagnosis Date Bipolar 1 disorder Schizo affective schizophrenia Tetanus received in last 5 years: No Allergies: Allergies Allergen Reactions Aspirin (Bulk) Swelling Tramadol Other - See comments Shakes Past Social History: Tobacco Use Never Smoker. Past Surgical History: No past surgical history on file. Review of Systems: Review of Systems Constitutional: Negative. Negative for activity change, appetite change, chills, diaphoresis, fatigue, fever and unexpected weight change. HENT: Negative. Eyes: Negative. Respiratory: Positive for cough. Negative for chest tightness, shortness of breath and wheezing. Breasts: Negative. Cardiovascular: Negative. Gastrointestinal: Negative. Genitourinary: Negative. Musculoskeletal: Negative. Skin: Negative. Neurological: Negative. Psychiatric/Behavioral: Negative. Endocrine: Endocrine negative Physical Exam: ED Triage Vitals [06/28/20 0319] Weight 74.8 kg (165 lb) Actual or estimated Height 1.803 m (5' 11") BP 130/79 Pulse 89 Resp 16 Temp 35.8 C (96.4 F) Temp source Oral SpO2 98 % Measured on Physical Exam Vitals signs and nursing note reviewed. Constitutional: General: He is not in acute distress. Appearance: Normal appearance. He is well-developed and normal weight. He is not ill-appearing, toxic-appearing or diaphoretic. HENT: Head: Normocephalic and atraumatic. Nose: No congestion or rhinorrhea. Mouth/Throat: Mouth: Mucous membranes are moist. Pharynx: Oropharynx is clear. No oropharyngeal exudate. Eyes: General: No scleral icterus. Right eye: No discharge. Left eye: No discharge. Extraocular Movements: Extraocular movements intact. Conjunctiva/sclera: Conjunctivae normal. Pupils: Pupils are equal, round, and reactive to light. Neck: Musculoskeletal: Normal range of motion and neck supple. No neck rigidity or muscular tenderness. Cardiovascular: Rate and Rhythm: Normal rate and regular rhythm. Pulses: Normal pulses. Heart sounds: Normal heart sounds. Pulmonary: Effort: Pulmonary effort is normal. No respiratory distress. Breath sounds: Normal breath sounds. No stridor. No wheezing, rhonchi or rales. Chest: Chest wall: No tenderness. Abdominal: General: Bowel sounds are normal. There is no distension. Palpations: Abdomen is soft. There is no mass. Tenderness: There is no abdominal tenderness. There is no right CVA tenderness, left CVA tenderness, guarding or rebound. Hernia: No hernia is present. Musculoskeletal: Normal range of motion. General: No tenderness. Skin: General: Skin is warm and dry. Capillary Refill: Capillary refill takes less than 2 seconds. Neurological: General: No focal deficit present. Mental Status: He is alert and oriented to person, place, and time. Cranial Nerves: No cranial nerve deficit. Sensory: No sensory deficit. Motor: No weakness. Coordination: Coordination normal. Gait: Gait normal. Deep Tendon Reflexes: Reflexes normal. Psychiatric: Behavior: Behavior normal. Thought Content: Thought content normal. Judgment: Judgment normal. Radiology: No results found for this visit on 06/28/20. Lab Results (24h): No results found for this or any previous visit (from the past 24 hour(s)). Orders and Treatments: No orders of the defined types were placed in this encounter. Orders Placed This Encounter Medications benzonatate 200 mg capsule ED COURSE MDM: Coding Scoring Tools: No data recorded Diagnosis/Impression: ICD-10-CM ICD-9-CM 1. Acute bronchitis, unspecified organism J20.9 466.0 2. Tobacco use Z72.0 305.1 Disposition/Condition: ED Disposition ED Disposition Condition Comment Disch - Home Stable Discharge Medications: Patient's Medications START taking these medications BENZONATATE 200 MG CAPSULE Take 1 capsule by mouth 3 (three) times daily as needed for Cough. CONTINUE taking these medications which have NOT CHANGED BENZTROPINE (COGENTIN) 1 MG TABLET Take 1 mg by mouth 2 (two) times daily. BROMFED DM 2-30-10 MG/5 ML SYRUP Take 7.5 mL by mouth 4 (four) times daily as needed for Congestion/Allergies. CHLORPROMAZINE (THORAZINE) 100 MG TABLET Take 100 mg by mouth 3 (three) times daily. CIPRODEX 0.3-0.1 % OTIC DRPS 6 drops to infetced ear bid for 7 days GUANFACINE (INTUNIV) 4 MG TB24 Take by mouth. METHYLPHENIDATE (CONCERTA) 36 MG 24 HR TABLET Take 36 mg by mouth every morning. PALIPERIDONE (INVEGA) 3 MG 24 HR TABLET Take 3 mg by mouth daily. PROMETHAZINE-CODEINE 6.25-10 MG/5 ML SYRUP Take 5 mL by mouth 4 (four) times daily as needed forCough. SOD GSIVH-YTMBLA-IHHLOA BOTTLE (NEILMED SINUS RINSE COMPLETE) PKDV Use 1 Bottle in each nostril 2 (two) times daily. 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 Prescriptions provided. Discussed tylenol/ibuprofen every 4-6 hours as needed. Patient verbalized understanding of instructions. Patient is awake, alert, and oriented, respirations regular and unlabored, skin is warm and dry, color appropriate for race, moves all extremities. Encouraged to follow up with primary physician. Advised to seek medical attentions for new/prolonged/worsening of symptoms. Vital signs are stable. No adverse reactions to medications given in ER noted upon discharge. 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 in this encounter Plan of Treatment Health Maintenance Due Date Last Done Comments MENINGOCOCCAL B VACCINES (1 of 2 - 2008 Risk Bexsero 2-dose series) Depression Screening 2010 INFLUENZA VACCINE (#1) 2020 DTaP,Tdap,and Td Vaccines (8 - Td) 10/27/2026 10/27/2016, 0 03/12/2011, 12/28/2005, Additional history exists PNEUMOCOCCAL 0-64 YEARS COMBINED Completed 12/28/2005, SERIES VARICELLA VACCINES Completed 03/12/2011, 04/27/1999 MENINGOCOCCAL VACCINE Completed 04/23/2015, 03/12/2011 HPV VACCINES Completed 10/27/2015, 06/25/2015, 04/23/2015 documented as of this encounter Results Not on filedocumented in this encounter Visit Diagnoses Diagnosis Acute bronchitis, unspecified organism - Primary Tobacco use Tobacco use disorder documented in this encounter Insurance Payer Benefit Plan / Subscriber ID Effective Phone Address T ype Group Dates [facility] [id number] 2020-Prese Medic are Adv HEALTHCARE - HEALTHCARE DUAL nt H MO MANAGED COMPLETE O MEDICARE [place] [id number] 2019-[facility] Medicaid HEALTHCARE COMM PLUS ent PLAN - MANAGED MEDICAID [phone] [id number] (Work) documented as of this encounter
--- OUTSIDE RECORDS SUMMARY | 2020-07-26 21:52 | XMS REPORT | Continuity of Care Document ---
:2000 Author Organization [facility] t Address [address] [place] [address] Care Team Providers Name Role Phone Chiquita Mills MD Attending Clinician Doctor Unassigned, Name Attending Clinician Unavailable Problems This patient has no known problems. Allergies, Adverse Reactions, Alerts This patient has no known allergies or adverse reactions. Medications This patient has no known medications. Procedures This patient has no known procedures. Encounters Start End Encounter Admission Attending Care Care Encounter Source Date/Time Date/Time Type Type Clinicians Facility Department ID 2020-06-28 2020-06-28 Emergency [facility] [id number] 03:18:00 03:41:00 Juan Antonio Sotelo [id number] [place] [id number] [place] [id number] 2020-06-28 2020-06-28 Orders Doctor PHILLIPS [id number] 00:00:00 00:00:00 Only UnassignedSHIRIN [id number] [place] [facility] [id number] 2019-10-28 2019-10-28 Emergency [facility] [id number] 03:52:43 04:10:00 Juan Antonio Sotelo [id number] [place] [id number] [place] [id number] Results This patient has no known results.
--- OUTSIDE RECORDS SUMMARY | 2020-07-26 21:52 | XMS REPORT | Summary of Care ---
:2000 Author Organization [facility] - Health Address [address] [place] [address] Care Team Providers Name Role Phone Unavailable Primary Care Provider Unavailable Encounter Details Date Type Department Care Team Description 06/28/2020 Orders Only [facility] Doctor Unassigned, No [address] [facility] [place] [address] [address] [place] [address] Allergies Active Allergy Reactions Severity Noted Date [...] 24 hr tablet mouth daily. benztropine (COGENTIN) 1 Take 1 mg by 0 Active mg tablet mouth 2 (two) times daily. [...] as Flu-like symptoms needed for Cough. sod giygl-zhuykj-jwrjqh Use 1 Bottle in 1 Each 0 10/06/2018 Active bottle (NEILMED SINUS each nostril 2 RINSE COMPLETE) (two) times pkdvIndications: daily. 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 Medicare A & B nt [id number] JAJA REILLY [id number] [facility] MEDICAID OF [id number] 2018-Prese [phone] [address] [facility] [phone] [place] [address] [facility] MEDICAID OF [id number] 2019-Pres [phone] Med icaid [place] ent [phone] [id number] [place] [address] documented as of this encounter
[2020-07-26 22:29] LABS: Absolute Lymphocytes (CBC) 1.5 K/uL (0.7-4.9); Basophils % 0.5 % (0-1.3); Hematocrit 43.4 % (39.6-49.0); MPV 7.6 fL (7.6-11.3); RBC Red Blood Cell Count 4.75 M/uL (4.33-5.43)
[2020-07-26] MEDS ORDERED: TETANUS & DIPHTHERIA TOX,ADULT 0.5 ML VIAL ONE (22:34)
[2020-07-26] MEDS ORDERED: NA CHLORIDE 0.9% 2,000 ML ONE (22:34)
[2020-07-26] MEDS ORDERED: CEFAZOLIN/SWI 1gm 0 GM/0 ML SYR ONE (22:35)
[2020-07-26 22:43] LABS: Protime INR 0.93
[2020-07-26 22:48] LABS: ALT/SGPT 22 U/L (12-78); AST/SGOT 10 U/L (15-37); Alkaline Phosphatase 76 U/L (45-117); BUN Blood Urea Nitrogen 10 mg/dL (7-18); Bicarbonate 27 mmol/L (21-32); Bilirubin Direct < 0.1 mg/dL (0-0.2); Bilirubin Total 0.3 mg/dL (0.2-1.0); Glucose Level 100 mg/dL (74-106); Lipase 92 U/L (73-393); Potassium 4.2 mmol/L (3.5-5.1); Protein, Total 7.5 g/dL (6.4-8.2); Sodium Level 141 mmol/L (136-145)
[2020-07-26] MEDS ORDERED: METRONIDAZOLE 500mg IVPB 500 MG/100 ML BAG IV ONE (23:09)
[2020-07-26] MEDS ORDERED: Levofloxacin 750mg IV 750 MG/150 ML BAG IV ONE (23:09)
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
[2020-07-27 00:17] LABS: Barbiturates NEGATIVE (NEGATIVE); Benzodiazepines NEGATIVE (NEGATIVE); Cocaine POSITIVE (NEGATIVE); METHAMPHETAM NEGATIVE (NEGATIVE); Methadone NEGATIVE (NEGATIVE); Opiates NEGATIVE (NEGATIVE); Phencyclidine NEGATIVE (NEGATIVE); THC Cannibis POSITIVE (NEGATIVE)
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
[2020-07-27] MEDS ORDERED: SUCCINYLCHOLINE 20 MG/ML (10 ML) IV ONE (00:22)
[2020-07-27] MEDS ORDERED: propofoL 200 MG/20 ML VIAL IV ONE (00:26)
[2020-07-27] MEDS ORDERED: LIDOCAINE 2% MPF 5 ML VIAL ONE (00:27)
[2020-07-27 00:33] LABS: Urine Blood NEGATIVE (NEG); Urine Glucose NEGATIVE (NEG); Urine Protein NEGATIVE (NEG); Urine Specific Gravity 1.025 (1.005-1.030); Urine pH 8.5 (5.0-7.0)
[2020-07-27] MEDS ORDERED: FENTANYL CITR 100 MCG/2 ML ONE ×2 (00:42→01:10)
[2020-07-27] MEDS ORDERED: ONDANSETRON 4 MG/2 ML VIAL ONE (00:43)
[2020-07-27] MEDS ORDERED: KETOROLAC 30 MG/ML INJ ONE (00:43)
[2020-07-27] MEDS ORDERED: ROCURONIUM 50 MG/5 ML VIAL IV ONE (00:43)
[2020-07-27] MEDS ORDERED: dexAMETHasone 10 MG/ML VIAL ONE (00:43)
[2020-07-27] MEDS ORDERED: ACETAMINOPHEN 500 MG TAB PO PRN (00:46)
[2020-07-27] MEDS ORDERED: ONDANSETRON 4 MG/2 ML VIAL IV PRN ×2 (00:46→01:42)
[2020-07-27] MEDS ORDERED: MORPHINE 2 MG/ML SYR IV PRN (01:07)
[2020-07-27] MEDS ORDERED: KETAMINE HCL 500 MG/5 ML VIAL ONE (01:21)
[2020-07-27] MEDS ORDERED: GLYCOPYRROLATE 0.2 MG/ML SYR ONE (01:40)
[2020-07-27] MEDS ORDERED: NEOSTIGMINE 1 MG/ML -5 ML ONE (01:40)
[2020-07-27] MEDS ORDERED: HYDROCODONE/APAP 7.5/325 MG TAB PO PRN (01:42)
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
[2020-07-27] MEDS: Levofloxacin500mg IV 500 MG/100 ML BAG IV SCH (02:00)
[2020-07-27 02:09] VITALS: O2SAT 98
[2020-07-27 02:34] VITALS: BMI 27.8
[2020-07-27] MEDS: MORPHINE 4 MG/ML SYR IV PRN ×5 (05:14→22:05)
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
[2020-07-27] MEDS: NICOTINE 21 MG/PAT TD SCH (15:38)
[2020-07-27] MEDS ORDERED: LORazepam 2 MG/ML VIAL IV ONE ×2 (20:25→20:26)
[2020-07-27] MEDS ORDERED: LORazepam 2 MG/ML VIAL IV PRN (20:27)
[2020-07-28] MEDS: Levofloxacin500mg IV 500 MG/100 ML BAG IV SCH (02:07)
[2020-07-28] MEDS: MORPHINE 4 MG/ML SYR IV PRN (03:17)
[2020-07-28 05:30] LABS: Absolute Lymphocytes (CBC) 2.2 K/uL (0.7-4.9); Basophils % 0.4 % (0-1.3); Hematocrit 37.9 % (39.6-49.0); Lymphocytes % 17.6 % (15.3-44.8); MPV 7.9 fL (7.6-11.3); RBC Red Blood Cell Count 4.08 M/uL (4.33-5.43)
[2020-07-28 05:41] LABS: ALT/SGPT 18 U/L (12-78); AST/SGOT 12 U/L (15-37); Albumin 3.6 g/dL (3.4-5.0); Alkaline Phosphatase 62 U/L (45-117); BUN Blood Urea Nitrogen 9 mg/dL (7-18); Bicarbonate 28 mmol/L (21-32); Bilirubin Direct 0.1 mg/dL (0-0.2); Bilirubin Total 0.8 mg/dL (0.2-1.0); Glucose Level 97 mg/dL (74-106); Lipase 50 U/L (73-393); Potassium 3.8 mmol/L (3.5-5.1); Sodium Level 142 mmol/L (136-145)
[2020-07-28] MEDS: NICOTINE 21 MG/PAT TD SCH (09:57)
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
[2020-07-28 13:45] VITALS: BP 132/68; TEMP 98
== END 2020-07-28 15:20 | disposition home or self-care (01) ==
LOC: ER 21:50 → ERHOLD 07-27 01:05 → 2ND 07-27 01:11
PROVIDERS: ADMIT Surgery; ATTEND Surgery
PROC: 0DJD0ZZ Inspection of Lower Intestinal Tract, Open Approach (ICD-10-PCS; principal; 2020-07-27)
DX: S31.63 Puncture wound without foreign body of abdominal wall with penetration into peritoneal cavity (principal); W26.0XXA Contact with knife, initial encounter; F90.9 Attention-deficit hyperactivity disorder, unspecified type; F32.9 Major depressive disorder, single episode, unspecified; Z20.828 Contact with and (suspected) exposure to other viral communicable diseases; F17.210 Nicotine dependence, cigarettes, uncomplicated
CPT/HCPCS: 96365; 85025 ×2; 80048 ×2; 36415 ×2; 86900; 86850; 85610; 86901; 80076 ×2; 80307 ×8; 85730; 81003; 83690 ×2; 74177; 90471; 90714; 94010 ×2; 99291; 49000; U0002; Q9967; J2704; J0330; J3010 ×2; J1100; J2270; J2710; J7030; J2405; G0390; J0690

== ENCOUNTER 2022-02-06 19:53 | Emergency (ER) | payer SELFPAY ==
--- NOTE | 2022-02-06 21:12 | ER ---
Nurse's Notes [facility] Name: Gerber Willis Jr Age: 21 yrs Sex: Male : 2000 Arrival Date: 02/06/2022 Time: 19:56 Bed 10 Private MD: Diagnosis: Cellulitis of back [any part except buttock] Presentation: 02/06 20:00 Chief complaint: Patient states: "I just got a bite on my back that I wanted to get tw5 checked up on.". Coronavirus screen: Vaccine status: Patient reports being unvaccinated. Ebola Screen: Patient negative for fever greater than or equal to 101.5 degrees Fahrenheit, and additional compatible Ebola Virus Disease symptoms Patient denies exposure to infectious person. Patient denies travel to an Ebola-affected area in the 21 days before illness onset. Initial Sepsis Screen: Does the patient meet any 2 criteria? No. Patient's initial sepsis screen is negative. Does the patient have a suspected source of infection? Yes: Skin breakdown/wound. Risk Assessment: Do you want to hurt yourself or someone else? Patient reports no desire to harm self or others. Onset of symptoms was February 04, 2022. 20:00 Method Of Arrival: Ambulatory tw5 20:03 Acuity: MORIS 4 tw5 Triage Assessment: 20:02 General: Appears uncomfortable, unkempt, Behavior is calm, cooperative. Pain: Complains tw5 of pain in back Pain currently is 8 out of 10 on a pain scale. Historical: - Allergies: 20:02 Aspirin; tw5 20:02 tramadol; tw5 - Home Meds: 20:02 None [Active]; tw5 - PMHx: 20:02 ADD/ADHD; Anxiety; Bipolar disorder; Depression; tw5 - Immunization history:: Flu vaccine is not up to date. - Social history:: Smoking status: Patient reports the use of cigarette tobacco products, smokes one pack cigarettes per day. Patient uses. - Family history:: not pertinent. Screenin:43 Abuse screen: Denies threats or abuse. Denies injuries from another. Nutritional tw5 screening: No deficits noted. Tuberculosis screening: No symptoms or risk factors identified. Fall Risk None identified. Assessment: 20:43 General: Reports "Yeah , I dont know why this bite got to big but it hurts.". Derm: tw5 Abscess located on right low back is nickel sized, 21:47 Reassessment: Patient appears in no apparent distress at this time. No changes from tw5 previously documented assessment. Vital Signs: 20:00 BP 137 / 86; Pulse 103; Resp 18; Temp 98.2; Pulse Ox 99% ; Weight 90.72 kg; Height 6 tw5 ft. 0 in. (182.88 cm); Pain 8/10; 20:43 BP 139 / 77; Resp 18; tw5 21:47 BP 104 / 85; Pulse 103; Pulse Ox 99% on R/A; tw5 20:00 Body Mass Index 27.12 (90.72 kg, 182.88 cm) tw5 ED Course: 19:56 Patient arrived in ED. jj6 20:02 Triage completed. tw5 20:02 Arm band placed on left wrist. tw5 20:37 Sacha Arita MD is Attending Physician. yvette 20:43 Placed in gown. Pulse ox on. NIBP on. Door closed. Moved to private room. tw5 21:12 Torito Allan MD is Referral Physician. yvette 21:32 Venus Harrell is Primary Nurse. tw5 21:47 No provider procedures requiring assistance completed. Patient did not have IV access tw5 during this emergency room visit. Administered Medications: 21:47 Drug: Silver SulfADIAZINE Cream 1 % 1 application Route: Topical; Site: affected area; tw5 21:47 Follow up: Response: No adverse reaction; Medication administered at discharge. tw5 21:47 Drug: Bactrim (trimethoprim-sulfamethoxazole) (160 mg-800 mg (DS) 1 tablet Route: PO; tw5 21:47 Follow up: Response: No adverse reaction; Medication administered at discharge. tw5 21:47 Drug: KeFLEX (cephalexin) 500 mg Route: PO; tw5 21:47 Follow up: Response: No adverse reaction; Medication administered at discharge. tw5 21:47 Drug: [place] (HYDROcodone-acetaminophen) 10 mg-325 mg 1 tabs Route: PO; tw5 21:47 Follow up: Response: No adverse reaction; Medication administered at discharge.; RASS: tw5 Alert and Calm (0) Medication: 20:43 VIS not applicable for this client. tw5 Outcome: 21:11 Discharge ordered by . yvette 21:47 Discharged to home ambulatory. tw 21:47 Condition: good 21:47 Discharge instructions given to patient, Instructed on discharge instructions, follow up and referral plans. medication usage, Demonstrated understanding of instructions, follow-up care, medications, Prescriptions given X 3. 21:48 Patient left the ED. tw Signatures: Sacha Arita MD MD cha Wood, Tiffany tw5 Emmy De Los Santos jj6 Corrections: (The following items were deleted from the chart) 20:03 20:00 Acuity: MORIS 3 tw5 tw
--- NOTE | 2022-02-06 21:12 | EDPHYS ---
Physician Documentation [facility] Name: Gerber Willis Jr Age: 21 yrs Sex: Male : 2000 Arrival Date: 02/06/2022 Time: 19:56 Bed 10 Private MD: ED Physician Sacha Arita HPI: 02/06 20:58 This 21 yrs old Male presents to ER via Ambulatory with complaints of Spider yvette Bite. 20:58 The patient presents with cellulitis of the right mid back. Description: The affected yvette area is small, erythematous. Onset: The symptoms/episode began/occurred 1 week(s) ago. Possible cause(s): unknown. Associated signs and symptoms: The patient has no apparent associated signs or symptoms. Severity of symptoms: At their worst the symptoms were mild, in the emergency department the symptoms are unchanged. Historical: - Allergies: 20:02 Aspirin; tw5 20:02 tramadol; tw5 - Home Meds: 20:02 None [Active]; tw5 - PMHx: 20:02 ADD/ADHD; Anxiety; Bipolar disorder; Depression; tw5 - Immunization history:: Flu vaccine is not up to date. - Social history:: Smoking status: Patient reports the use of cigarette tobacco products, smokes one pack cigarettes per day. Patient uses. - Family history:: not pertinent. ROS: 20:58 Constitutional: Negative for fever, chills, and weight loss, Eyes: Negative for injury, yvette pain, redness, and discharge, ENT: Negative for injury, pain, and discharge, Neck: Negative for injury, pain, and swelling, Cardiovascular: Negative for chest pain, palpitations, and edema, Respiratory: Negative for shortness of breath, cough, wheezing, and pleuritic chest pain, Abdomen/GI: Negative for abdominal pain, nausea, vomiting, diarrhea, and constipation, Back: Negative for injury and pain, : Negative for injury, bleeding, discharge, and swelling, MS/Extremity: Negative for injury and deformity, Neuro: Negative for headache, weakness, numbness, tingling, and seizure, Psych: Negative for depression, anxiety, suicide ideation, homicidal ideation, and hallucinations, Allergy/Immunology: Negative for hives, rash, and allergies, Endocrine: Negative for neck swelling, polydipsia, polyuria, polyphagia, and marked weight changes. 20:58 Skin: Positive for swelling, of the back. Exam: 20:58 Constitutional: This is a well developed, well nourished patient who is awake, alert, yvette and in no acute distress. Head/Face: Normocephalic, atraumatic. Eyes: Pupils equal round and reactive to light, extra-ocular motions intact. Lids and lashes normal. Conjunctiva and sclera are non-icteric and not injected. Cornea within normal limits. Periorbital areas with no swelling, redness, or edema. ENT: Nares patent. No nasal discharge, no septal abnormalities noted. Tympanic membranes are normal and external auditory canals are clear. Oropharynx with no redness, swelling, or masses, exudates, or evidence of obstruction, uvula midline. Mucous membranes moist. Neck: Trachea midline, no thyromegaly or masses palpated, and no cervical lymphadenopathy. Supple, full range of motion without nuchal rigidity, or vertebral point tenderness. No Meningismus. Chest/axilla: Normal chest wall appearance and motion. Nontender with no deformity. No lesions are appreciated. Cardiovascular: Regular rate and rhythm with a normal S1 and S2. No gallops, murmurs, or rubs. Normal PMI, no JVD. No pulse deficits. Respiratory: Lungs have equal breath sounds bilaterally, clear to auscultation and percussion. No rales, rhonchi or wheezes noted. No increased work of breathing, no retractions or nasal flaring. Abdomen/GI: Soft, non-tender, with normal bowel sounds. No distension or tympany. No guarding or rebound. No evidence of tenderness throughout. Back: No spinal tenderness. No costovertebral tenderness. Full range of motion. Male : Normal genitalia with no discharge or lesions. MS/ Extremity: Pulses equal, no cyanosis. Neurovascular intact. Full, normal range of motion. Neuro: Awake and alert, GCS 15, oriented to person, place, time, and situation. Cranial nerves II-XII grossly intact. Motor strength 5/5 in all extremities. Sensory grossly intact. Cerebellar exam normal. Normal gait. Psych: Awake, alert, with orientation to person, place and time. Behavior, mood, and affect are within normal limits. 20:58 Skin: Appearance: Color: normal in color, abscess, not appreciated, cellulitis, that is minimal, induration, that is mild is noted, injury, is not appreciated, on the back. Vital Signs: 20:00 BP 137 / 86; Pulse 103; Resp 18; Temp 98.2; Pulse Ox 99% ; Weight 90.72 kg; Height 6 tw5 ft. 0 in. (182.88 cm); Pain 8/10; 20:43 BP 139 / 77; Resp 18; tw5 21:47 BP 104 / 85; Pulse 103; Pulse Ox 99% on R/A; tw5 20:00 Body Mass Index 27.12 (90.72 kg, 182.88 cm) tw5 MDM: 20:37 Patient medically screened. yvette 21:09 Differential diagnosis: abscess, cellulitis. Data reviewed: vital signs, nurses notes. 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 Counseling: I had a detailed discussion with the patient and/or guardian regarding: the historical points, exam findings, and any diagnostic results supporting the discharge/admit diagnosis, the need for outpatient follow up, for definitive care, a family practitioner, a general surgeon. Administered Medications: 21:47 Drug: Silver SulfADIAZINE Cream 1 % 1 application Route: Topical; Site: affected area; tw 21:47 Follow up: Response: No adverse reaction; Medication administered at discharge. tw 21:47 Drug: Bactrim (trimethoprim-sulfamethoxazole) (160 mg-800 mg (DS) 1 tablet Route: PO; tw 21:47 Follow up: Response: No adverse reaction; Medication administered at discharge. tw 21:47 Drug: KeFLEX (cephalexin) 500 mg Route: PO; tw 21:47 Follow up: Response: No adverse reaction; Medication administered at discharge. tw 21:47 Drug: [place] (HYDROcodone-acetaminophen) 10 mg-325 mg 1 tabs Route: PO; tw 21:47 Follow up: Response: No adverse reaction; Medication administered at discharge.; RASS: tw5 Alert and Calm (0) Disposition Summary: 02/06/22 21:11 Discharge Ordered Location: Home yvette Problem: new yvette Symptoms: have improved yvette Condition: Stable yvette Diagnosis - Cellulitis of back [any part except buttock] yvette Followup: yvette - With: Private Physician - When: 2 - 3 days - Reason: Recheck today's complaints, Continuance of care, Re-evaluation by your physician Followup: [facility] - With: Torito Allan MD - When: 2 - 3 days - Reason: Recheck today's complaints, Re-evaluation by your physician Discharge Instructions: - Discharge Summary Sheet yvette - Cellulitis, Adult yvette - Enzymatic Wound Debridement [facility] Forms: - Medication Reconciliation Form yvette - Thank You Letter yvette - Antibiotic Education yvette - Prescription Opioid Use [facility] Prescriptions: - Cephalexin 500 mg Oral Capsule - take 1 capsule by ORAL route every 6 hours for 7 days; 28 capsule; Refills: 0, [facility] Product Selection Permitted - Silvadene 1 % Topical Cream - Apply to affected area 1 application by TOPICAL route every 12 hours; 50 gram; [facility] Refills: 0, Product Selection Permitted - Bactrim DS 800-160 mg Oral Tablet - take 1 tablet by ORAL route every 12 hours for 7 days; 14 tablet; Refills: 0, [facility] Product Selection Permitted Signatures: Sacha Arita MD MD cha Wood, Tiffany tw5
[2022-02-06] MEDS ORDERED: CEPHALEXIN 250 MG CAP ONE (21:43)
[2022-02-06] MEDS ORDERED: SILVER SULFADIAZINE 1% 25 GM TOP ONE (21:43)
[2022-02-06] MEDS ORDERED: HYDROCODONE/APAP 10/325 TAB ONE (21:44)
[2022-02-06] MEDS ORDERED: SMZ./TMP. 800/160 MG TABLET ONE (21:44)
[2022-02-06 22:05] VITALS: TEMP 98.2; O2SAT 99
[2022-02-06 22:07] VITALS: BP 104/85
== END 2022-02-06 21:48 | disposition home or self-care (01) ==
LOC: ER 19:53
DX: L03.312 Cellulitis of back [any part except buttock and flank] (principal); F17.210 Nicotine dependence, cigarettes, uncomplicated; Z88.5 Allergy status to narcotic agent; Z88.6 Allergy status to analgesic agent
CPT/HCPCS: 99283

== ENCOUNTER 2022-06-18 13:52 | Emergency (ER) | payer OTHER ==
--- OUTSIDE RECORDS SUMMARY | 2022-06-18 13:56 | XMS REPORT | Continuity of Care Document ---
:2000 Author Organization [facility] t Address [address] [place] [address] Care Team Providers Name Role Phone Juan Antonio Mcgraw MD S Attending Clinician Doctor Unassigned, [place] Attending Clinician Unavailable JUAN ANTONIO MCGRAW Attending Clinician Unavailable Payers Payer Name Policy Type Policy Number Effective Date Expiration Date Chiquita gamble MEDICARE PART A [id number] 2018 \T\ B 00:00:00 [place]ICAID OF [place] [id number] 2019 00:00:00 Problems Condition Condition Condition Status Onset Resolution Last Treating Co mments Source Name Details Category Date Date Treatment Clinician Date No known No known Disease Unive rs active active ity of problems problems [facility] Allergies, Adverse Reactions, Alerts Allergy Allergy Status Severity Reaction(s) Onset Inactive Treating Comm ents Source Name Type Date Date Clinician ASPIRIN DRUG Active Swelling Univers (BULK) 3- ity of 00:00: [place] [address] Medical Branch TRAMADOL DRUG Active Other-Cmnt Univ ers INGREDI 10-27 ity of 00:00: [address] Aspirin Propensi Active Swelling Unive rs (Bulk) ty to 10-27 ity of adverse 00:00: [place] reaction Medical s Branch Tramadol Propensi Active Other - See Shakes U nivers ty to comments 10-27 ity of adverse 00:00: [place] reaction 00 Medical s Branch Social History Social Habit Start Date Stop Date Quantity Comments Source Exposure to Not sure [facility] SARS-CoV-2 (event) Medica l Branch Sex Assigned At [facility] Medical Branch Alcohol intake 2016-10-27 2016-10-27 [facility] 00:00:00 00:00:00 Medical Branch Smoking Status Start Date Stop Date Source Never smoker [facility] Medical Branch Medications Ordered Filled Start Stop Current Ordering Indication Dosage Frequency Signature Comments Components Source Medication Medication Date Date Medication? Clinician (SIG) Name Name benzonatate 2019-08 Yes [id number] 200mg Take 1 Univers 200 mg 1-21 capsule by ity of capsule 00:00: mouth 3 [place] 00 (three) Medical times Branch daily as needed for Cough. promethazin Yes [id number] 5mL Take 5 mL Univers e-codeine 3-01 by mouth 4 ity of 6.25-10 00:00: (four) [place] mg/5 mL 00 times Medical syrup daily as Branch needed for Cough. sod Yes [id number] 1{bottl Use 1 Univ ers chlor-bicar 3-01 e} Bottle in ity of b-squeez 00:00: each [place] bottle 00 nostril 2 Medical (NEILMED (two) Branch SINUS RINSE times COMPLETE) daily. Use pkdv in hot shower 1 hour before bedtime promethazin Yes [id number] 5mL Take 5 mL Univers e-codeine 3-01 by mouth 4 ity of 6.25-10 00:00: (four) [place] mg/5 mL 00 times Medical syrup daily as Branch needed for Cough. sod Yes [id number] 1{bottl Use 1 Univ ers chlor-bicar 3-01 e} Bottle in ity of b-squeez 00:00: each [place] bottle 00 nostril 2 Medical (NEILMED (two) Branch SINUS RINSE times COMPLETE) daily. Use pkdv in hot shower 1 hour before bedtime promethazin Yes [id number] 5mL Take 5 mL Univers e-codeine 3-01 by mouth 4 ity of 6.25-10 00:00: (four) [place] mg/5 mL 00 times Medical syrup daily as Branch needed for Cough. sod 2018-0 Yes [id number] 1{bottl Use 1 Univ ers chlor-bicar 3-01 e} Bottle in ity of b-squeez 00:00: each [place] bottle 00 nostril 2 Medical (NEILMED (two) Branch SINUS RINSE times COMPLETE) daily. Use pkdv in hot shower 1 hour before bedtime BROMFED DM Yes 7.5mL Take 7.5 Un laverne 2-30-10 2-29 mL by ity of mg/5 mL 00:00: mouth 4 [place] syrup 00 (four) Medical times Branch daily as needed for Congestion /Allergies . BROMFED DM Yes 7.5mL Take 7.5 Un laverne 2-30-10 2-29 mL by ity of mg/5 mL 00:00: mouth 4 [place] syrup 00 (four) Medical times Branch daily as needed for Congestion /Allergies . BROMFED DM Yes 7.5mL Take 7.5 Un laverne 2-30-10 2-29 mL by ity of mg/5 mL 00:00: mouth 4 [place] syrup 00 (four) Medical times Branch daily as needed for Congestion /Allergies . paliperidon Yes 3mg Take 3 mg U nivers e (INVEGA) 9-16 by mouth ity o f 3 mg 24 hr 14:30: daily. [place] tablet 57 Medical Branch benztropine Yes 1mg Take 1 mg U nivers (COGENTIN) 9-16 by mouth 2 ity of 1 mg tablet 14:30: (two) [place] 57 times Medical daily. Branch paliperidon 0 Yes 3mg Take 3 mg U nivers e (INVEGA) 9-16 by mouth ity o f 3 mg 24 hr 14:30: daily. [place] tablet 57 Medical Branch benztropine 0 Yes 1mg Take 1 mg U nivers (COGENTIN) 9-16 by mouth 2 ity of 1 mg tablet 14:30: (two) [place] 57 times Medical daily. Branch chlorproMAZ 0 Yes 100mg Take 100 U nivers INE 9-16 mg by ity of (THORAZINE) 14:30: mouth 3 [place] 100 mg 57 (three) Medical tablet times Branch daily. Guanfacine Yes Take by [facility] ers (INTUNIV) 4 9-16 mouth. ity of mg Tb24 14:30: [address] chlorproMAZ Yes 100mg Take 100 U nivers INE 9-16 mg by ity of (THORAZINE) 14:30: mouth 3 [place] 100 mg 57 (three) Medical tablet times Branch daily. Guanfacine Yes Take by [facility] ers (INTUNIV) 4 9-16 mouth. ity of mg Tb24 14:30: [address] paliperidon Yes 3mg Take 3 mg U nivers e (INVEGA) 9-16 by mouth ity o f 3 mg 24 hr 14:30: daily. [address] benztropine Yes 1mg Take 1 mg U nivers (COGENTIN) 9-16 by mouth 2 ity of 1 mg tablet 14:30: (two) [place] [address] times Medical daily. Branch chlorproMAZ Yes 100mg Take 100 U nivers INE 9-16 mg by ity of (THORAZINE) 14:30: mouth 3 [place] 100 mg 57 (three) Medical tablet times [place] daily. Guanfacine [address] [facility] ers (INTUNIV) 4 9-16 mouth. ity of mg Tb24 14:30: [address] methylpheni Yes 36mg Take 36 mg Univers date 9-16 by mouth ity of (CONCERTA) 14:30: every [place] 36 mg 24 hr 56 morning. [facility] sky tablet Branch methylpheni Yes 36mg Take 36 mg Univers date 9-16 by mouth ity of (CONCERTA) 14:30: every [place] 36 mg 24 hr 56 morning. Medi sky tablet Branch methylpheni Yes 36mg Take 36 mg Univers date 9-16 by mouth ity of (CONCERTA) 14:30: every [place] 36 mg 24 hr 56 morning. [facility] sky tablet Branch CIPRODEX 2006-0 Yes 6 drops to Uni vers 0.3-0.1 % 8-10 infetced ity of OTIC DRPS 00:00: ear bid [place] 00 for 7 days Medical Branch CIPRODEX Yes 6 drops to Uni vers 0.3-0.1 % 8-10 infetced ity of OTIC DRPS 00:00: ear bid [place] 00 for 7 days Medical Branch CIPRODEX Yes 6 drops to Uni vers 0.3-0.1 % 8-10 infetced ity of OTIC DRPS 00:00: ear bid 00 for 7 days [facility] Immunizations Ordered Immunization Filled Date Status Comments Sour ce Name Immunization Name Td 2016-10-27 Completed University of 00:00:00 [facility] Td 2016-10-27 Completed University of 00:00:00 [facility] Td 2016-10-27 Completed University of 00:00:00 [facility] HPV9 2015-10-27 Completed University of 00:00:00 [facility] HPV9 2015-10-27 Completed University of 00:00:00 [facility] HPV9 2015-10-27 Completed University of 00:00:00 [facility] HPV9 2015-06-25 Completed University of 00:00:00 [facility] HPV9 2015-06-25 Completed University of 00:00:00 [facility] HPV9 2015-06-25 Completed University of 00:00:00 [facility] HPV9 2015-04-23 Completed University of 00:00:00 [facility] Meningococcal 2015-04-23 Completed University of Oligosaccharide 00:00:00 [place] Med ical (groups A, C, Y and Branc h W-135) conjugate vaccine (MCV4O) HPV9 2015-04-23 Completed University of 00:00:00 [facility] Meningococcal 2015-04-23 Completed University of Oligosaccharide 00:00:00 [place] Med ical (groups A, C, Y and Branc h W-135) conjugate vaccine (MCV4O) HPV9 2015-04-23 Completed University of 00:00:00 [facility] Meningococcal 2015-04-23 Completed University of Oligosaccharide 00:00:00 [place] Med ical (groups A, C, Y and Branc h W-135) conjugate vaccine (MCV4O) HEPATITIS A 2011-03-12 Completed University of 00:00:00 [facility] Meningococcal 2011-03-12 Completed University of Oligosaccharide 00:00:00 [place] Med ical (groups A, C, Y and Branc h W-135) conjugate vaccine (MCV4O) TDAP 2011-03-12 Completed University of 00:00:00 [facility] Varicella 2011-03-12 Completed University of (varivax)(chicken pox) 00:00:00 [facility] HEPATITIS A 2011-03-12 Completed University of 00:00:00 [facility] Meningococcal 2011-03-12 Completed University of Oligosaccharide 00:00:00 [place] Med ical (groups A, C, Y and Branc h W-135) conjugate vaccine (MCV4O) Tdap 2011-03-12 Completed University of 00:00:00 [facility] Varicella 2011-03-12 Completed University of (varivax)(chicken pox) 00:00:00 [facility] HEPATITIS A 2011-03-12 Completed University of 00:00:00 [facility] Meningococcal 2011-03-12 Completed University of Oligosaccharide 00:00:00 [place] Med ical (groups A, C, Y and Branc h W-135) conjugate vaccine (MCV4O) TDAP 2011-03-12 Completed University of 00:00:00 [facility] Varicella 2011-03-12 Completed University of (varivax)(chicken pox) 00:00:00 [facility] Pneumococcal 7 2005-12-28 Completed University of Conjugate, PCV7 00:00:00 [place] Med ical (Prevnar7) Branch HEPATITIS A 2005-12-28 Completed University of 00:00:00 [facility] MMR 2005-12-28 Completed University of 00:00:00 [facility] Pediarix (dtap/hep 2005-12-28 Completed Univer sity of B/ipv) 00:00:00 [facility] Pneumococcal 7 2005-12-28 Completed University of Conjugate, PCV7 00:00:00 [place] Med ical (Prevnar7) Branch HEPATITIS A 2005-12-28 Completed University of 00:00:00 [facility] MMR 2005-12-28 Completed University of 00:00:00 [facility] Pediarix (dtap/hep 2005-12-28 Completed Univer sity of B/ipv) 00:00:00 [facility] Pneumococcal 7 2005-12-28 Completed University of Conjugate, PCV7 00:00:00 [place] Med ical (Prevnar7) Branch HEPATITIS A 2005-12-28 Completed University of 00:00:00 [facility] MMR 2005-12-28 Completed University of 00:00:00 [facility] Pediarix (dtap/hep 2005-12-28 Completed Univer sity of B/ipv) 00:00:00 [facility] Polio (IPV/OPV) 2003-04-11 Completed Universit y of 00:00:00 [facility] Polio (IPV/OPV) 2003-04-11 Completed Universit y of 00:00:00 [facility] Polio (IPV/OPV) 2003-04-11 Completed Universit y of 00:00:00 [facility] DTAP 2003-03-21 Completed University of 00:00:00 [facility] MMR 2003-03-21 Completed University of 00:00:00 [facility] DTAP 2003-03-21 Completed University of 00:00:00 [facility] MMR 2003-03-21 Completed University of 00:00:00 [facility] DTAP 2003-03-21 Completed University of 00:00:00 [facility] MMR 2003-03-21 Completed University of 00:00:00 [facility] Pneumococcal 7 2000-12-29 Completed University of Conjugate, PCV7 00:00:[address] [facility] ical (Prevnar7) Branch Pneumococcal 7 2000-12-29 Completed University of Conjugate, PCV7 00:00:00 [place] Med ical (Prevnar7) Branch Pneumococcal 7 2000-12-29 Completed University of Conjugate, PCV7 00:00:[address] [facility] ical (Prevnar7) Branch DTAP 1999-04-27 Completed University of 00:00:00 [facility] HIB 4 Dose Schedule 1999-04-27 Completed Unive rsity of 00:00:00 [facility] MMR 1999-04-27 Completed University of 00:00:00 [facility] Polio (IPV/OPV) 1999-04-27 Completed Universit y of 00:00:00 [facility] Varicella 1999-04-27 Completed University of (varivax)([place] pox[place] [facility] DTAP 1999-04-27 Completed University of 00:00:00 [facility] HIB 4 Dose Schedule 1999-04-27 Completed Unive rsity of 00:00:00 [facility] MMR 1999-04-27 Completed University of 00:00:00 [facility] Polio (IPV/OPV) 1999-04-27 Completed Universit y of 00:00:00 [facility] Varicella 1999-04-27 Completed University of (varivax)(chicken pox) 00:00:00 [place] [facility] DTAP 1999-04-27 Completed University of 00:00:00 [facility] HIB 4 Dose Schedule 1999-04-27 Completed Unive rsity of 00:00:00 [facility] MMR 1999-04-27 Completed University of 00:00:00 [facility] Polio (IPV/OPV) 1999-04-27 Completed Universit y of 00:00:00 [facility] Varicella 1999-04-27 Completed University of (varivax)(chicken pox) 00:00:00 [facility] Hep B, Adol or Pedi 1999-03-14 Completed Unive rsity of Dosage 00:00:00 [facility] Hep B, Adol or Pedi 1999-03-14 Completed Unive rsity of Dosage 00:00:00 [facility] Hep B, Adol or Pedi 1999-03-14 Completed Unive rsity of Dosage 00:00:00 [facility] DTAP 1998 Completed University of 00:00:00 [facility] HIB 4 Dose Schedule 1998 Completed Unive rsity of 00:00:00 [facility] Polio (IPV/OPV) 1998 Completed Universit y of 00:00:00 [facility] DTAP 1998 Completed University of 00:00:00 [facility] HIB 4 Dose Schedule 1998 Completed Unive rsity of 00:00:00 [facility] Polio (IPV/OPV) 1998 Completed Universit y of 00:00:00 [facility] DTAP 1998 Completed University of 00:00:00 [facility] HIB 4 Dose Schedule 1998 Completed Unive rsity of 00:00:00 [facility] Polio (IPV/OPV) 1998 Completed Universit y of 00:00:00 [facility] DTAP 1998 Completed University of 00:00:00 [facility] HIB 4 Dose Schedule 1998 Completed Unive rsity of 00:00:00 [facility] Hep B, Adol or Pedi 1998 Completed Unive rsity of Dosage 00:00:00 [facility] Polio (IPV/OPV) 1998 Completed Universit y of 00:00:00 [facility] DTAP 1998 Completed University of 00:00:00 [facility] HIB 4 Dose Schedule 1998 Completed Unive rsity of 00:00:00 [facility] Hep B, Adol or Pedi 1998 Completed Unive rsity of Dosage 00:00:00 [facility] Polio (IPV/OPV) 1998 Completed Universit y of 00:00:00 [facility] DTAP 1998 Completed University of 00:00:00 [facility] HIB 4 Dose Schedule 1998 Completed Unive rsity of 00:00:00 [place] [facility] Hep B, Adol or Pedi 1998 Completed Unive rsity of Dosage 00:00:00 [facility] Polio (IPV/OPV) 1998 Completed Universit y of 00:00:00 [facility] DTAP 1998 Completed University of 00:00:00 [facility] HIB 4 Dose Schedule 1998 Completed Unive rsity of 00:00:00 [facility] Hep B, Adol or Pedi 1998 Completed Unive rsity of Dosage 00:00:00 [facility] Polio (IPV/OPV) 1998 Completed Universit y of 00:00:00 [facility] DTAP 1998 Completed University of 00:00:00 [facility] HIB 4 Dose Schedule 1998 Completed Unive rsity of 00:00:00 [place] [facility] Hep B, Adol or Pedi 1998 Completed Unive rsity of Dosage 00:00:00 [facility] Polio (IPV/OPV) 1998 Completed Universit y of 00:00:00 [facility] DTAP 1998 Completed University of 00:00:00 [facility] HIB 4 Dose Schedule 1998 Completed Unive rsity of 00:00:00 [place] [facility] Hep B, Adol or Pedi 1998 Completed Unive rsity of Dosage 00:00:00 [facility] Polio (IPV/OPV) 1998 Completed Universit y of 00:00:00 [facility] Hep B, Adol or Pedi 1998 Completed Unive rsity of Dosage 00:00:00 [facility] Hep B, Adol or Pedi 1998 Completed Unive rsity of Dosage 00:00:00 [facility] Hep B, Adol or Pedi 1998 Completed Unive rsity of Dosage 00:00:00 [facility] Vital Signs Vital Name Observation Time Observation Value Comments Source Systolic blood 2020-06-28 09:19:00 130 mm[Hg] Univer sity of pressure [facility] Diastolic blood 2020-06-28 09:19:00 79 mm[Hg] Unive rsity of pressure [facility] Heart rate 2020-06-28 09:19:00 89 /min Universi ty of [facility] Body temperature 2020-06-28 09:19:00 35.78 [facility] Univ ersity of [facility] Respiratory rate 2020-06-28 09:19:00 16 /min Univ ersity of [facility] Body height 2020-06-28 09:19:00 180.3 cm Universi ty of [facility] Body weight 2020-06-28 09:19:00 74.844 kg Universi ty of [facility] BMI 2020-06-28 09:19:00 23.01 kg/m2 Universi ty of [facility] Oxygen saturation in 2020-06-28 09:19:00 98 /min [facility] Arterial blood by [facility] Pulse oximetry Branch Systolic blood 2020-06-28 09:19:00 130 mm[Hg] Univer sity of pressure [facility] Diastolic blood 2020-06-28 09:19:00 79 mm[Hg] Unive rsity of pressure [facility] Heart rate 2020-06-28 09:19:00 89 /min Universi ty of [facility] Body temperature 2020-06-28 09:19:00 35.78 [facility] Univ ersity of [facility] Respiratory rate 2020-06-28 09:19:00 16 /min Univ ersity of [facility] Body height 2020-06-28 09:19:00 180.3 cm Universi ty of [facility] Body weight 2020-06-28 09:19:00 74.844 kg Universi ty of [facility] BMI 2020-06-28 09:19:00 23.01 kg/m2 Universi ty of [place] [facility] Oxygen saturation in 2020-06-28 09:19:00 98 /min University of Arterial blood by [facility] Pulse oximetry Branch Oxygen saturation in 2019-10-28 08:46:00 99 /min University of Arterial blood by [facility] Pulse oximetry Branch Systolic blood 2019-10-28 08:46:00 141 mm[Hg] Univer sity of pressure [place] [facility] Diastolic blood 2019-10-28 08:46:00 91 mm[Hg] Unive rsity of pressure [place] [facility] Heart rate 2019-10-28 08:46:00 105 /min Universi ty of [place] [facility] Body temperature 2019-10-28 08:46:00 36.61 [facility] ersity of [place] [facility] Respiratory rate 2019-10-28 08:46:00 19 /min Univ ersity of [place] [facility] Body height 2019-10-28 08:46:00 180.3 cm Universi ty of [place] [facility] Body weight 2019-10-28 08:46:00 74.844 kg Universi ty of [place] [facility] BMI 2019-10-28 08:46:00 23.01 kg/m2 Universi ty of [place] [facility] Oxygen saturation in 2019-10-28 08:46:00 99 /min University of Arterial blood by [facility] Pulse oximetry Branch Systolic blood 2019-10-28 08:46:00 141 mm[Hg] Univer sity of pressure [place] [facility] Diastolic blood 2019-10-28 08:46:00 91 mm[Hg] Unive rsity of pressure [place] [facility] Heart rate 2019-10-28 08:46:00 105 /min Universi ty of [place] [facility] Body temperature 2019-10-28 08:46:00 36.61 [facility] Univ ersity of [place] [facility] Respiratory rate 2019-10-28 08:46:00 19 /min Univ ersity of [place] [facility] Body height 2019-10-28 08:46:00 180.3 cm Universi ty of [place] [facility] Body weight 2019-10-28 08:46:00 74.844 kg Universi ty of [place] [facility] BMI 2019-10-28 08:46:00 23.01 kg/m2 Universi ty of [place] [facility] Procedures Procedure Date / Time Performed Performing Clinician [facility] e CONSENT/REFUSAL FOR 2020-06-28 09:10:22 Doctor Unassigned, No Un [facility] DIAGNOSIS AND Name Medical Branch TREATMENT Encounters Start End Encounter Admission Attending Care Care Encounter Source Date/Time Date/Time Type Type Clinicians Facility Department ID 2020-06-28 2020-06-28 Emergency [facility] [id number] 03:18:00 03:41:00 Gaudencioanthony Sotelo [id number] [place] [id number] [place] [id number] 2020-06-28 2020-06-28 Emergency [facility] [id number] Univers 03:18:00 03:41:00 Juan Antonio Sotelo [id number] ity of [place] [id number] [facility] [id number] [address] 2020-06-28 2020-06-28 Emergency X [facility] ERT [id number] Univers 03:12:00 03:12:00 ity of [facility] 2020-06-28 2020-06-28 Orders Doctor PHILLIPS [id number] 00:00:00 00:00:00 Only Unassigned, SHIRIN [id number] [place] [facility] [id number] 2020-06-28 2020-06-28 Orders Doctor PHILLIPS [id number] Univers 00:00:00 00:00:00 Only Unassigned, SHIRIN [id number] ity of [place] [facility] [id number] [place] [address] [id number] [place] [address] Branch 2019-10-28 2019-10-28 [facility] [id number] Univers 03:52:43 04:10:00 Juan Antonio Sotelo [id number] ity of [place] [id number] [facility] [id number] [place] [id number] Branch 2019-10-28 2019-10-28 [facility] [id number] 03:52:43 04:10:00 Juan Antonio Sotelo [id number] [place] [id number] [place] [id number] 2019-10-28 2019-10-28 Emergency X MARILUZ [facility] [id number] Univers 03:52:43 03:52:43 JUAN ANTONIO [facility] Results This patient has no known results.
--- NOTE | 2022-06-18 15:05 | EDPHYS ---
Physician Documentation [facility] Name: Gerber Willis Jr Age: 22 yrs Sex: Male : 2000 Arrival Date: 06/18/2022 Time: 13:54 Bed 9 Private MD: ED Physician Jaxson Quinonez HPI: 06/18 15:02 This 22 yrs old Male presents to ER via Ambulatory with complaints of Flu jl9 Symptoms. Patient c/o sore throat. . 15:02 Onset: The symptoms/episode began/occurred 3 day(s) ago. Associated signs and symptoms: jl9 Pertinent positives: sore throat. Modifying factors: The patient symptoms are alleviated by nothing, the patient symptoms are aggravated by nothing. Historical: - Allergies: 14:00 Aspirin; ss 14:00 tramadol; ss - PMHx: 14:00 ADD/ADHD; Anxiety; Bipolar disorder; Depression; ss - Immunization history:: Adult Immunizations up to date. - Social history:: Smoking status: Patient reports the use of cigarette tobacco products, smokes one-half pack cigarettes per day. ROS: 15:03 Eyes: Negative for injury, pain, redness, and discharge. jl9 15:03 Neck: Negative for injury, pain, and swelling, Cardiovascular: Negative for chest pain, palpitations, and edema. 15:03 Abdomen/GI: Negative for abdominal pain, nausea, vomiting, diarrhea, and constipation, Back: Negative for injury and pain, : Negative for injury, bleeding, discharge, and swelling, MS/Extremity: Negative for injury and deformity, Skin: Negative for injury, rash, and discoloration, Neuro: Negative for headache, weakness, numbness, tingling, and seizure, Psych: Negative for depression, anxiety, suicide ideation, homicidal ideation, and hallucinations, Allergy/Immunology: Negative for hives, rash, and allergies, Endocrine: Negative for neck swelling, polydipsia, polyuria, polyphagia, and marked weight changes. 15:03 Constitutional: Positive for malaise. 15:03 ENT: Positive for sinus pain, sore throat. 15:03 Respiratory: Positive for cough. Exam: 15:03 Constitutional: This is a well developed, well nourished patient who is awake, alert, jl9 and in no acute distress. Head/Face: Normocephalic, atraumatic. Eyes: Pupils equal round and reactive to light, extra-ocular motions intact. Lids and lashes normal. Conjunctiva and sclera are non-icteric and not injected. Cornea within normal limits. Periorbital areas with no swelling, redness, or edema. 15:03 Neck: Trachea midline, no thyromegaly or masses palpated, and no cervical lymphadenopathy. Supple, full range of motion without nuchal rigidity, or vertebral point tenderness. No Meningismus. Chest/axilla: Normal chest wall appearance and motion. Nontender with no deformity. No lesions are appreciated. Cardiovascular: Regular rate and rhythm with a normal S1 and S2. No gallops, murmurs, or rubs. Normal PMI, no JVD. No pulse deficits. Respiratory: Lungs have equal breath sounds bilaterally, clear to auscultation and percussion. No rales, rhonchi or wheezes noted. No increased work of breathing, no retractions or nasal flaring. Abdomen/GI: Soft, non-tender, with normal bowel sounds. No distension or tympany. No guarding or rebound. No evidence of tenderness throughout. Back: No spinal tenderness. No costovertebral tenderness. Full range of motion. Skin: Warm, dry with normal turgor. Normal color with no rashes, no lesions, and no evidence of cellulitis. MS/ Extremity: Pulses equal, no cyanosis. Neurovascular intact. Full, normal range of motion. Neuro: Awake and alert, GCS 15, oriented to person, place, time, and situation. Cranial nerves II-XII grossly intact. Motor strength 5/5 in all extremities. Sensory grossly intact. Cerebellar exam normal. Normal gait. Psych: Awake, alert, with orientation to person, place and time. Behavior, mood, and affect are within normal limits. 15:03 ENT: External ear(s): are unremarkable, Ear canal(s): are normal, TM's: are normal, Nose: is normal, Mouth: is normal, Posterior pharynx: erythema, that is moderate, exudate, that is moderate. Vital Signs: 13:59 BP 144 / 91; Pulse 98; Resp 16; Temp 98.3; Pulse Ox 100% on R/A; Weight 90.72 kg; ss Height 5 ft. 11 in. (180.34 cm); Pain 5/10; 13:59 Body Mass Index 27.89 (90.72 kg, 180.34 cm) MDM: 14:03 Patient medically screened. jl9 15:04 Data reviewed: vital signs, nurses notes. Counseling: I had a detailed discussion with katrina the patient and/or guardian regarding: the historical points, exam findings, and any diagnostic results supporting the discharge/admit diagnosis, lab results, the need for outpatient follow up, to return to the emergency department if symptoms worsen or persist or if there are any questions or concerns that arise at home. 06/18 13:57 Order name: Flu; Complete Time: 15:00 jl9 Administered Medications: No medications were administered Disposition Summary: 06/18/22 15:04 Discharge Ordered Location: Home jl9 Condition: Stable jl9 Diagnosis - Streptococcal pharyngitis jl9 Followup: jl9 - With: Private Physician - When: 1 - 2 days - Reason: Recheck today's complaints, Continuance of care, Re-evaluation by your physician Discharge Instructions: - Discharge Summary Sheet jl9 - Strep Throat, Adult, [id number] jl9 Forms: - Medication Reconciliation Form jl9 - Thank You Letter jl9 - Antibiotic Education jl9 - Prescription Opioid Use jl9 Prescriptions: - Amoxicillin 875 mg Oral Tablet - take 1 tablet by ORAL route every 12 hours for 10 days; 20 tablet; Refills: 0, jl9 Product Selection Permitted Signatures: Dispatcher [employer] Hannah Kang RN RN ss Linares, John jl9
--- NOTE | 2022-06-18 15:05 | ER ---
Nurse's Notes [facility] Name: Gerber Willis Jr Age: 22 yrs Sex: Male : 2000 Arrival Date: 06/18/2022 Time: 13:54 Bed 9 Private MD: Diagnosis: Streptococcal pharyngitis Presentation: 06/18 13:59 Chief complaint: Productive cough, sinus congestion, sore throat, pain with cough, ss headache, nausea, and body aches x 2 days. Coronavirus screen: At this time, the client does not indicate any symptoms associated with coronavirus-19. Ebola Screen: No symptoms or risks identified at this time. Risk Assessment: Do you want to hurt yourself or someone else? Patient reports no desire to harm self or others. Onset of symptoms was June 16, 2022. 13:59 Method Of Arrival: Ambulatory ss 13:59 Acuity: MORIS 4 ss 14:00 Initial Sepsis Screen: Does the patient meet any 2 criteria? No. Patient's initial hb sepsis screen is negative. Does the patient have a suspected source of infection? No. Patient's initial sepsis screen is negative. Triage Assessment: 13:59 General: Appears in no apparent distress. Behavior is calm, cooperative. Pain: Pain hb currently is 5 out of 10 on a pain scale. Neuro: Level of Consciousness is awake, alert, obeys commands, Oriented to person, place, time, situation. Cardiovascular: Patient's skin is warm and dry. Respiratory: Respiratory effort is even, unlabored, Respiratory pattern is regular, symmetrical. Historical: - Allergies: 14:00 Aspirin; ss 14:00 tramadol; ss - PMHx: 14:00 ADD/ADHD; Anxiety; Bipolar disorder; Depression; ss - Immunization history:: Adult Immunizations up to date. - Social history:: Smoking status: Patient reports the use of cigarette tobacco products, smokes one-half pack cigarettes per day. Screenin:41 Abuse screen: Denies threats or abuse. Denies injuries from another. Nutritional hb screening: No deficits noted. Tuberculosis screening: No symptoms or risk factors identified. Fall Risk None identified. Assessment: 14:41 General: See triage assessment. hb Vital Signs: 13:59 BP 144 / 91; Pulse 98; Resp 16; Temp 98.3; Pulse Ox 100% on R/A; Weight 90.72 kg; ss Height 5 ft. 11 in. (180.34 cm); Pain 5/10; 13:59 Body Mass Index 27.89 (90.72 kg, 180.34 cm) ED Course: 13:54 Patient arrived in ED. as 13:57 Doyle Sheth is PHCP. jl9 13:57 Jaxson Quinonez MD is Attending Physician. jl9 14:00 Triage completed. ss 14:00 Arm band placed on. ss 14:41 Patient has correct armband on for positive identification. hb 15:28 No provider procedures requiring assistance completed. Patient did not have IV access ss during this emergency room visit. Administered Medications: No medications were administered Medication: 14:41 VIS not applicable for this client. hb Outcome: 15:04 Discharge ordered by . jl9 15:28 Discharged to home ambulatory. ss 15:28 Condition: good 15:28 Discharge instructions given to patient, Instructed on discharge instructions, follow up and referral plans. Demonstrated understanding of instructions, follow-up care. 15:30 Patient left the ED. Signatures: Yamile Mccallum Shelby, RN RN Flora Zepeda, RN RN Domenic Doyle jl9
[2022-06-18 15:35] VITALS: BP 144/91; TEMP 98.3; O2SAT 100
== END 2022-06-18 15:30 | disposition home or self-care (01) ==
LOC: ER 13:52
DX: J02.0 Streptococcal pharyngitis (principal); F17.210 Nicotine dependence, cigarettes, uncomplicated
CPT/HCPCS: 87804; 99281

== ENCOUNTER 2022-12-09 14:42 | Emergency (ER) | payer OTHER ==
--- OUTSIDE RECORDS SUMMARY | 2022-12-09 14:45 | XMS REPORT | Continuity of Care Document ---
:2000 Author Organization [facility] t Address [address] [facility] [address] [place] [address] Care Team Providers Name Role Phone Juan Antonio Mcgraw MD Attending Clinician Doctor Unassigned, [place] Attending Clinician Unavailable JUAN ANTONIO MCGRAW Attending Clinician Unavailable Payers Payer Name Policy Type Policy Number Effective Date Expiration Date Chiquita gamble MEDICARE PART A [id number] 2018 \T\ B 00:00:00 [place]ICAID OF [place] [id number] 2019 00:00:00 Problems Condition Condition Condition Status Onset Resolution Last Treating Co mments Source Name Details Category Date Date Treatment Clinician Date No known No known Disease Unive rs active active ity of problems problems [facility] Allergies, Adverse Reactions, Alerts Allergy Allergy Status Severity Reaction(s) Onset Inactive Treating Comm ents Source Name Type Date Date Clinician ASPIRIN DRUG Active Swelling Univers (BULK) 3- ity of 00:00: [place] [address] Medical Branch TRAMADOL DRUG Active Other-Cmnt Univ ers INGREDI 10-27 ity of 00:00: [address] Aspirin Propensi Active Swelling Unive rs (Bulk) ty to 10-27 ity of adverse 00:00: [place] reaction Medical s Branch Tramadol Propensi Active Other - See Shakes U nivers ty to comments 10-27 ity of adverse 00:00: [place] reaction 00 Medical s Branch Social History Social Habit Start Date Stop Date Quantity Comments Source Exposure to Not sure [facility] SARS-CoV-2 (event) Medica l Branch Sex Assigned At [facility] Medical Branch Alcohol intake 2016-10-27 2016-10-27 [facility] 00:00:00 00:00:00 Medical Branch Smoking Status Start Date Stop Date Source Never smoker [facility] Medical Branch Medications Ordered Filled Start Stop Current Ordering Indication Dosage Frequency Signature Comments Components Source Medication Medication Date Date Medication? Clinician (SIG) Name Name benzonatate 2019-08 Yes [id number] 200mg Take 1 Univers 200 mg 1-21 capsule by ity of capsule 00:00: mouth 3 [place] 00 (three) Medical times Branch daily as needed for Cough. promethazin Yes [id number] 5mL Take 5 mL Univers e-codeine 3-01 by mouth 4 ity of 6.25-10 00:00: (four) [place] mg/5 mL 00 times Medical syrup daily as Branch needed for Cough. sod Yes [id number] 1{bottl Use 1 Univ ers chlor-bicar 3-01 e} Bottle in ity of b-squeez 00:00: each [place] bottle 00 nostril 2 Medical (NEILMED (two) Branch SINUS RINSE times COMPLETE) daily. Use pkdv in hot shower 1 hour before bedtime promethazin Yes [id number] 5mL Take 5 mL Univers e-codeine 3-01 by mouth 4 ity of 6.25-10 00:00: (four) [place] mg/5 mL 00 times Medical syrup daily as Branch needed for Cough. sod Yes [id number] 1{bottl Use 1 Univ ers chlor-bicar 3-01 e} Bottle in ity of b-squeez 00:00: each [place] bottle 00 nostril 2 Medical (NEILMED (two) Branch SINUS RINSE times COMPLETE) daily. Use pkdv in hot shower 1 hour before bedtime promethazin Yes [id number] 5mL Take 5 mL Univers e-codeine 3-01 by mouth 4 ity of 6.25-10 00:00: (four) [place] mg/5 mL 00 times Medical syrup daily as Branch needed for Cough. sod Yes [id number] 1{bottl Use 1 Univ ers chlor-bicar 3-01 [...] f 3 mg 24 hr 14:30: daily. [place] tablet 57 Medical Branch benztropine Yes 1mg Take 1 mg U nivers (COGENTIN) 9-16 by mouth 2 ity of 1 mg tablet 14:30: (two) [place] 57 times Medical daily. Branch paliperidon Yes 3mg Take 3 mg U nivers e (INVEGA) 9-16 by mouth ity o f 3 mg 24 hr 14:30: daily. [place] tablet 57 Medical Branch benztropine 0 Yes 1mg Take 1 mg U nivers (COGENTIN) 9-16 by mouth 2 ity of 1 mg tablet 14:30: (two) [place] 57 times Medical daily. Branch chlorproMAZ Yes 100mg Take 100 U nivers INE 9-16 mg by ity of (THORAZINE) 14:30: mouth 3 [place] 100 mg 57 (three) Medical tablet times Branch daily. Guanfacine 0 Yes Take by [facility] ers (INTUNIV) 4 9-16 mouth. ity of mg Tb24 14:30: [address] chlorproMAZ 0 Yes 100mg Take 100 U nivers INE 9-16 mg by ity of (THORAZINE) 14:30: mouth 3 [place] 100 mg 57 (three) Medical tablet times Branch daily. Guanfacine 0 Yes Take by [facility] ers (INTUNIV) 4 9-16 mouth. ity of mg Tb24 14:30: [address] paliperidon Yes 3mg Take 3 mg U nivers e (INVEGA) 9-16 by mouth ity o f 3 mg 24 hr 14:30: daily. [address] benztropine Yes 1mg Take 1 mg U nivers (COGENTIN) 9-16 by mouth 2 ity of 1 mg tablet 14:30: (two) [place] [address] times Medical daily. Branch chlorproMAZ Yes 100mg Take 100 U nivers INE 9-16 mg by ity of (THORAZINE) 14:30: mouth 3 [place] 100 mg 57 (three) Medical tablet times [place] daily. Guanfacine 0 Yes Take by [facility] ers (INTUNIV) 4 9-16 mouth. ity of mg Tb24 14:30: [address] methylpheni Yes 36mg Take 36 mg [...] hr 56 morning. Medi sky tablet Branch CIPRODEX Yes 6 drops to Uni vers 0.3-0.1 % 8-10 infetced ity of OTIC DRPS 00:00: ear bid [place] 00 for 7 days Medical Branch CIPRODEX Yes 6 drops to Uni vers 0.3-0.1 % 8-10 infetced ity of OTIC DRPS 00:00: ear bid for 7 days Medical Branch CIPRODEX Yes 6 drops to Uni vers 0.3-0.1 % 8-10 infetced ity of OTIC DRPS 00:00: ear bid for 7 days [facility] Immunizations Ordered Immunization Filled Date Status Comments Sour ce Name Immunization Name Td 2016-10-27 Completed University of 00:00:00 [facility] Td 2016-10-27 Completed University of 00:00:00 [facility] Td 2016-10-27 Completed University of 00:00:00 [facility] HPV9 2015-10-27 Completed University of 00:00:00 [facility] HPV9 2015-10-27 Completed University of 00:00:00 [facility] HPV9 2015-10-27 Completed University of 00:00:00 [facility] HPV9 2015-06-25 Completed University of 00:00:00 [facility] HPV9 2015-06-25 Completed University of 00:00:00 [facility] HPV9 2015-06-25 Completed University of 00:00:00 [facility] HPV9 2015-04-23 Completed University of 00:00:00 [facility] Meningococcal 2015-04-23 Completed University of Oligosaccharide 00:00:00 [place] Med ical (groups A, C, Y and Branc h W-135) conjugate vaccine (MCV4O) HPV9 2015-04-23 Completed University of 00:00:00 [facility] Meningococcal 2015-04-23 Completed University of Oligosaccharide 00:00:00 [place] Med ical (groups A, C, Y and Branc h W-135) conjugate vaccine (MCV4O) HPV9 2015-04-23 Completed University of 00:00:00 [facility] Meningococcal 2015-04-23 Completed University of Oligosaccharide 00:00:00 [place] Med ical (groups A, C, Y and Branc h W-135) conjugate vaccine (MCV4O) HEPATITIS A 2011-03-12 Completed University of 00:00:00 [facility] Meningococcal 2011-03-12 Completed University of Oligosaccharide 00:00:00 [place] Med ical (groups A, C, Y and Branc h W-135) conjugate vaccine (MCV4O) TDAP 2011-03-12 Completed University of 00:00:00 [facility] Varicella 2011-03-12 Completed University of (varivax)(chicken pox) 00:00:00 [facility] HEPATITIS A 2011-03-12 Completed University of 00:00:00 [facility] Meningococcal 2011-03-12 Completed University of Oligosaccharide 00:00:00 [place] Med ical (groups A, C, Y and Branc h W-135) conjugate vaccine (MCV4O) Tdap 2011-03-12 Completed University of 00:00:00 [facility] Varicella 2011-03-12 Completed University of (varivax)(chicken pox) 00:00:00 [facility] HEPATITIS A 2011-03-12 Completed University of 00:00:00 [facility] Meningococcal 2011-03-12 Completed University of Oligosaccharide 00:00:00 [place] Med ical (groups A, C, Y and Branc h W-135) conjugate vaccine (MCV4O) TDAP 2011-03-12 Completed University of 00:00:00 [facility] Varicella 2011-03-12 Completed University of (varivax)(chicken pox) 00:00:00 [facility] Pneumococcal 7 2005-12-28 Completed University of Conjugate, PCV7 00:00:00 [place] Med ical (Prevnar7) Branch HEPATITIS A 2005-12-28 Completed University of 00:00:00 [facility] MMR 2005-12-28 Completed University of 00:00:00 [facility] Pediarix (dtap/hep 2005-12-28 Completed Univer sity of B/ipv) 00:00:00 [facility] Pneumococcal 7 2005-12-28 Completed University of Conjugate, PCV7 00:00:00 [place] Med ical (Prevnar7) Branch HEPATITIS A 2005-12-28 Completed University of 00:00:00 [facility] MMR 2005-12-28 Completed University of 00:00:00 [facility] Pediarix (dtap/hep 2005-12-28 Completed Univer sity of B/ipv) 00:00:00 [facility] Pneumococcal 7 2005-12-28 Completed University of Conjugate, PCV7 00:00:00 [place] Med ical (Prevnar7) Branch HEPATITIS A 2005-12-28 Completed University of 00:00:00 [facility] MMR 2005-12-28 Completed University of 00:00:00 [facility] Pediarix (dtap/hep 2005-12-28 Completed Univer sity of B/ipv) 00:00:00 [facility] Polio (IPV/OPV) 2003-04-11 Completed Universit y of 00:00:00 [facility] Polio (IPV/OPV) 2003-04-11 Completed Universit y of 00:00:00 [facility] Polio (IPV/OPV) 2003-04-11 Completed Universit y of 00:00:00 [facility] DTAP 2003-03-21 Completed University of 00:00:00 [facility] MMR 2003-03-21 Completed University of 00:00:00 [facility] DTAP 2003-03-21 Completed University of 00:00:00 [facility] MMR 2003-03-21 Completed University of 00:00:00 [facility] DTAP 2003-03-21 Completed University of 00:00:00 [facility] MMR 2003-03-21 Completed University of 00:00:00 [facility] Pneumococcal 7 2000-12-29 Completed University of Conjugate, PCV7 00:00:00 [place] Med ical (Prevnar7) Branch Pneumococcal 7 2000-12-29 Completed University of Conjugate, PCV7 00:00:00 [place] Med ical (Prevnar7) Branch Pneumococcal 7 2000-12-29 Completed University of Conjugate, PCV7 00:00:00 [facility] ical (Prevnar7) Branch DTAP 1999-04-27 Completed University of 00:00:00 [facility] HIB 4 Dose Schedule 1999-04-27 Completed Unive rsity of 00:00:00 [facility] MMR 1999-04-27 Completed University of 00:00:00 [facility] Polio (IPV/OPV) 1999-04-27 Completed Universit y of 00:00:00 [facility] Varicella 1999-04-27 Completed University of (varivax)([place] pox[place] [facility] DTAP 1999-04-27 Completed University of 00:00:00 [facility] HIB 4 Dose Schedule 1999-04-27 Completed Unive rsity of 00:00:00 [facility] MMR 1999-04-27 Completed University of 00:00:00 [facility] Polio (IPV/OPV) 1999-04-27 Completed Universit y of 00:00:00 [place] [facility] Branch Varicella 1999-04-27 Completed University of (varivax)([place] pox[place] [facility] Branch DTAP 1999-04-27 Completed University of 00:00:00 [facility] HIB 4 Dose Schedule 1999-04-27 Completed Unive rsity of 00:00:00 [facility] MMR 1999-04-27 Completed University of 00:00:00 [facility] Polio (IPV/OPV) 1999-04-27 Completed Universit y of 00:00:00 [facility] Varicella 1999-04-27 Completed University of (varivax[facility]) [facility] or Pedi 1999-03-14 Completed Unive rsity of Dosage 00:00:00 [facility] Hep B, Adol or Pedi 1999-03-14 Completed Unive rsity of Dosage 00:00:00 [facility] Hep B, Adol or Pedi 1999-03-14 Completed Unive rsity of Dosage 00:00:00 [facility] DTAP 1998 Completed University of 00:00:00 [facility] HIB 4 Dose Schedule 1998 Completed Unive rsity of 00:00:00 [facility] Polio (IPV/OPV) 1998 Completed Universit y of 00:00:00 [facility] DTAP 1998 Completed University of 00:00:00 [facility] HIB 4 Dose Schedule 1998 Completed Unive rsity of 00:00:00 [facility] Polio (IPV/OPV) 1998 Completed Universit y of 00:00:00 [facility] DTAP 1998 Completed University of 00:00:00 [facility] HIB 4 Dose Schedule 1998 Completed Unive rsity of 00:00:00 [facility] Polio (IPV/OPV) 1998 Completed Universit y of 00:00:00 [facility] DTAP 1998 Completed University of 00:00:00 [facility] HIB 4 Dose Schedule 1998 Completed Unive rsity of 00:00:00 [facility] Hep B, Adol or Pedi 1998 Completed Unive rsity of Dosage 00:00:00 [facility] Branch Polio (IPV/OPV) 1998 Completed Universit y of 00:00:00 [facility] DTAP 1998 Completed University of 00:00:00 [facility] HIB 4 Dose Schedule 1998 Completed Unive rsity of 00:00:00 [facility] Hep B, Adol or Pedi 1998 Completed Unive rsity of Dosage 00:00:00 [facility] Polio (IPV/OPV) 1998 Completed Universit y of 00:00:00 [facility] DTAP 1998 Completed University of 00:00:00 [facility] HIB 4 Dose Schedule 1998 Completed Unive rsity of 00:00:00 [place] [facility] Hep B, Adol or Pedi 1998 Completed Unive rsity of Dosage 00:00:00 [facility] Polio (IPV/OPV) 1998 Completed Universit y of 00:00:00 [facility] DTAP 1998 Completed University of 00:00:00 [facility] HIB 4 Dose Schedule 1998 Completed Unive rsity of 00:00:00 [place] [facility] Hep B, Adol or Pedi 1998 Completed Unive rsity of Dosage 00:00:00 [facility] Polio (IPV/OPV) 1998 Completed Universit y of 00:00:00 [facility] DTAP 1998 Completed University of 00:00:00 [facility] HIB 4 Dose Schedule 1998 Completed Unive rsity of 00:00:00 [place] [facility] Hep B, Adol or Pedi 1998 Completed Unive rsity of Dosage 00:00:00 [facility] Polio (IPV/OPV) 1998 Completed Universit y of 00:00:00 [facility] DTAP 1998 Completed University of 00:00:00 [facility] HIB 4 Dose Schedule 1998 Completed Unive rsity of 00:00:00 [place] [facility] Hep B, Adol or Pedi 1998 Completed Unive rsity of Dosage 00:00:00 [facility] Polio (IPV/OPV) 1998 Completed Universit y of 00:00:00 [facility] Hep B, Adol or Pedi 1998 Completed Unive rsity of Dosage 00:00:00 [facility] Hep B, Adol or Pedi 1998 Completed Unive rsity of Dosage 00:00:00 [facility] Hep B, Adol or Pedi 1998 Completed Unive rsity of Dosage 00:00:00 [facility] Vital Signs Vital Name Observation Time Observation Value Comments Source Systolic blood 2020-06-28 09:19:00 130 mm[Hg] Univer sity of pressure [facility] Branch Diastolic blood 2020-06-28 09:19:00 79 mm[Hg] Unive rsity of pressure [facility] Heart rate 2020-06-28 09:19:00 89 /min Universi ty of [facility] Body temperature 2020-06-28 09:19:00 35.78 [place] Univ ersity of [facility] Respiratory rate 2020-06-28 09:19:00 16 /min Univ ersity of [facility] Body height 2020-06-28 09:19:00 180.3 cm Universi ty of [facility] Body weight 2020-06-28 09:19:00 74.844 kg Universi ty of [facility] BMI 2020-06-28 09:19:00 23.01 kg/m2 Universi ty of [facility] Oxygen saturation in 2020-06-28 09:19:00 98 /min University Arterial blood by [facility] Pulse oximetry Branch Systolic blood 2020-06-28 09:19:00 130 mm[Hg] Univer sity of pressure [facility] Diastolic blood 2020-06-28 09:19:00 79 mm[Hg] Unive rsity of pressure [facility] Heart rate 2020-06-28 09:19:00 89 /min Universi ty of [facility] Body temperature 2020-06-28 09:19:00 35.78 [place] Univ ersity of [facility] Respiratory rate 2020-06-28 09:19:00 16 /min Univ ersity of [facility] Body height 2020-06-28 09:19:00 180.3 cm Universi ty of [facility] Body weight 2020-06-28 09:19:00 74.844 kg Universi ty of [place] [facility] Branch BMI 2020-06-28 09:19:00 23.01 kg/m2 Universi ty of [place] [facility] Oxygen saturation in 2020-06-28 09:19:00 98 /min University of Arterial blood by [facility] Pulse oximetry Branch Oxygen saturation in 2019-10-28 08:46:00 99 /min University of Arterial blood by [facility] Pulse oximetry Branch Systolic blood 2019-10-28 08:46:00 141 mm[Hg] Univer sity of pressure [place] [facility] Diastolic blood 2019-10-28 08:46:00 91 mm[Hg] Unive rsity of pressure [place] [facility] Heart rate 2019-10-28 08:46:00 105 /min Universi ty of [place] [facility] Body temperature 2019-10-28 08:46:00 36.61 [facility] Univ ersity of [place] [facility] Respiratory rate 2019-10-28 08:46:00 19 /min Univ ersity of [place] [facility] Body height 2019-10-28 08:46:00 180.3 cm Universi ty of [place] [facility] Body weight 2019-10-28 08:46:00 74.844 kg Universi ty of [place] [facility] BMI 2019-10-28 08:46:00 23.01 kg/m2 Universi ty of [place] [facility] Oxygen saturation in 2019-10-28 08:46:00 99 /min University of Arterial blood by [facility] Pulse oximetry Branch Systolic blood 2019-10-28 08:46:00 141 mm[Hg] Univer sity of pressure [place] [facility] Diastolic blood 2019-10-28 08:46:00 91 mm[Hg] Unive rsity of pressure [place] [facility] Heart rate 2019-10-28 08:46:00 105 /min Universi ty of [place] [facility] Body temperature 2019-10-28 08:46:00 36.61 [facility] Univ ersity of [place] [facility] Respiratory rate 2019-10-28 08:46:00 19 /min Univ ersity of [place] [facility] Body height 2019-10-28 08:46:00 180.3 cm Universi ty of [place] [facility] Body weight 2019-10-28 08:46:00 74.844 kg Universi ty of [place] [facility] BMI 2019-10-28 08:46:00 23.01 kg/m2 Universi ty of [place] [facility] Procedures Procedure Date / Time Performed Performing Clinician [facility] e CONSENT/REFUSAL FOR 2020-06-28 09:10:22 Doctor Unassigned, No Un [facility] DIAGNOSIS AND Name Medical Branch TREATMENT Encounters Start End Encounter Admission Attending Care Care Encounter Source Date/Time Date/Time Type Type Clinicians Facility Department ID 2020-06-28 2020-06-28 Emergency [facility] [id number] 03:18:00 03:41:00 Juan Antonio Sotelo [id number] [place] [id number] [place] [id number] 2020-06-28 2020-06-28 Emergency [facility] [id number] Univers 03:18:00 03:41:00 Juan Antonio Sotelo [id number] ity of [place] [id number] [place] [id number] 2020-06-28 2020-06-28 Emergency X [facility] ERT [id number] Univers 03:12:00 03:12:00 ity of [facility] 2020-06-28 2020-06-28 Orders Doctor PHILLIPS [id number] 00:00:00 00:00:00 Only Unassigned, SHIRIN [id number] [place] [facility] [id number] 2020-06-28 2020-06-28 Orders Doctor PHILLIPS [id number] Univers 00:00:00 00:00:00 Only Unassigned, SHIRIN [id number] ity of [place] [facility] [id number] [place] [address] [id number] [facility] 009 Branch 2019-10-28 2019-10-28 [facility] [id number] Univers 03:52:43 04:10:00 Juan Antonio Sotelo [id number] ity of [place] [id number] [facility] [phone] [place] [id number] Branch 2019-10-28 2019-10-28 [facility] [id number] 03:52:43 04:10:00 Juan Antonio Sotelo [id number] [place] [id number] [place] [id number] 2019-10-28 2019-10-28 Emergency X MARILUZ [facility] ERT [id number] Univers 03:52:43 03:52:43 JUAN ANTONIO [facility]ist[facility] Results This patient has no known results.
--- NOTE | 2022-12-09 15:11 | EDPHYS ---
Physician Documentation [facility] Name: Gerber Willis Jr Age: 22 yrs Sex: Male : 2000 Arrival Date: 12/09/2022 Time: 14:42 Bed IW8 Private MD: ED Physician Remington Ortiz HPI: 12/09 15:26 This 22 yrs old Male presents to ER via Ambulatory with complaints of Toothache. kb 15:26 The patient presents with pain, redness, swelling. The problem is located in the right kb buccal mucosa. Onset: The symptoms/episode began/occurred 5 day(s) ago. Duration: The symptoms are continuous. Modifying factors: The symptoms are alleviated by nothing, the symptoms are aggravated by nothing. Associated signs and symptoms: Pertinent positives: pain, redness in area, swelling. Severity of symptoms: At their worst the symptoms were moderate, in the emergency department the symptoms are unchanged. The patient has not experienced similar symptoms in the past. The patient has not recently seen a physician. Pt reports toothache that started 2 weeks ago. States he had swelling to the area as well for a couple of days, that has improved. States he knows he needs antibiotics because he has had infections in the past. Historical: - Allergies: 15:03 Aspirin; aa5 15:03 tramadol; aa5 - PMHx: 15:03 ADD/ADHD; Anxiety; Bipolar disorder; Depression; aa5 - Immunization history:: Adult Immunizations unknown. - Social history:: Smoking status: Patient reports the use of cigarette tobacco products. ROS: 15:26 Constitutional: Negative for fever, chills, and weight loss. kb 15:26 ENT: Positive for dental pain. 15:26 All other systems are negative. Exam: 15:26 Constitutional: This is a well developed, well nourished patient who is awake, alert, kb and in no acute distress. Head/Face: Normocephalic, atraumatic. Cardiovascular: Regular rate and rhythm with a normal S1 and S2. No gallops, murmurs, or rubs. No pulse deficits. Respiratory: Respirations even and unlabored. No increased work of breathing. Talking in full sentences Skin: Warm, dry with normal turgor. Normal color. MS/ Extremity: Pulses equal, no cyanosis. Neurovascular intact. Full, normal range of motion. Neuro: Awake and alert, GCS 15, oriented to person, place, time, and situation. Moves all extremities. Normal gait. 15:26 ENT: Dental exam: dental caries, that is moderate, pain, that is moderate. Vital Signs: 15:03 BP 124 / 74; Pulse 110; Resp 20 S; Temp 98(TE); Pulse Ox 96% on R/A; Weight 99.79 kg aa5 (R); Height 5 ft. 11 in. (R); 15:03 Body Mass Index 30.68 (99.79 kg, 180.34 cm) aa5 MDM: 15:07 Patient medically screened. kb 15:20 Data reviewed: vital signs, nurses notes. kb 15:20 Differential diagnosis: dental caries, gingivitis, dental abscess. Counseling: I had a kb detailed discussion with the patient and/or guardian regarding: the historical points, exam findings, and any diagnostic results supporting the discharge/admit diagnosis, the need for outpatient follow up, a family practitioner, to return to the emergency department if symptoms worsen or persist or if there are any questions or concerns that arise at home. Administered Medications: No medications were administered Disposition: 16:11 Co-signature as Attending Physician, Remington Ortiz MD I reviewed the patient's care rn provided by the Advanced Practice Provider and agree with the diagnosis and treatment plan. Disposition Summary: 12/09/22 15:10 Discharge Ordered Location: Home kb Condition: Stable kb Diagnosis - Other specified disorders of teeth and supporting structures kb Followup: kb - With: Emergency Department - When: As needed - Reason: Worsening of condition Followup: kb - With: Private Physician - When: 2 - 3 days - Reason: Recheck today's complaints, Continuance of care, Re-evaluation by your physician Discharge Instructions: - Discharge Summary Sheet kb - Dental Pain, [id number] kb - Dental Abscess, [id number] kb Forms: - Medication Reconciliation Form kb - Thank You Letter kb - Antibiotic Education kb - Prescription Opioid Use kb Prescriptions: - Augmentin 875-125 mg Oral Tablet - take 1 tablet by ORAL route every 12 hours for 10 days; 20 tablet; Refills: 0, kb Product Selection Permitted Signatures: Devi Chow, SE AYALA-Ckb Ortiz, Remington, MD MD rn Kebede, Kathy, RN RN aa5
--- NOTE | 2022-12-09 15:11 | ER ---
Nurse's Notes [facility] Name: Gerber Willis Jr Age: 22 yrs Sex: Male : 2000 Arrival Date: 12/09/2022 Time: 14:42 Bed IW8 Private MD: Diagnosis: Other specified disorders of teeth and supporting structures Presentation: 12/09 15:03 Chief complaint: Patient states: toothache x 1-2 weeks ago. Coronavirus screen: At this aa5 time, the client does not indicate any symptoms associated with coronavirus-19. Ebola Screen: Patient denies travel to an Ebola-affected area in the 21 days before illness onset. Initial Sepsis Screen: Does the patient meet any 2 criteria? HR > 90 bpm. Does the patient have a suspected source of infection? No. Patient's initial sepsis screen is negative. Risk Assessment: Do you want to hurt yourself or someone else? Patient reports no desire to harm self or others. Onset of symptoms was 2022. 15:03 Acuity: MORIS 5 aa5 15:03 Method Of Arrival: Ambulatory aa5 Historical: - Allergies: 15:03 Aspirin; aa5 15:03 tramadol; aa5 - PMHx: 15:03 ADD/ADHD; Anxiety; Bipolar disorder; Depression; aa5 - Immunization history:: Adult Immunizations unknown. - Social history:: Smoking status: Patient reports the use of cigarette tobacco products. Assessment: 15:17 Reassessment: Patient is alert, oriented x 3, equal unlabored respirations, skin aa5 warm/dry/pink. Vital Signs: 15:03 BP 124 / 74; Pulse 110; Resp 20 S; Temp 98(TE); Pulse Ox 96% on R/A; Weight 99.79 kg aa5 (R); Height 5 ft. 11 in. (R); 15:03 Body Mass Index 30.68 (99.79 kg, 180.34 cm) aa5 ED Course: 14:47 Patient arrived in ED. mr 14:51 Devi Chow F[facility]-C [facility] kb 14:51 Remington Ortiz MD is Attending Physician. kb 15:02 Arm band placed on. aa5 15:04 Triage completed. aa5 15:17 No provider procedures requiring assistance completed. Patient did not have IV access aa5 during this emergency room visit. Administered Medications: No medications were administered Medication: 15:17 VIS not applicable for this client. aa5 Outcome: 15:10 Discharge ordered by MD. aceves 15:17 Discharged to home ambulatory. aa5 15:17 Condition: stable 15:17 Discharge instructions given to patient, Instructed on discharge instructions, follow up and referral plans. medication usage, Demonstrated understanding of instructions, follow-up care, medications, Prescriptions given X 1. 15:17 Patient left the ED. aa5 Signatures: Devi Chow, LUCY-C LUCY-[employer] Delio, Kathy, RN RN aa5
[2022-12-09 15:23] VITALS: BP 124/74; TEMP 98; O2SAT 96
== END 2022-12-09 15:17 | disposition home or self-care (01) ==
LOC: ER 14:42
DX: K02.9 Dental caries, unspecified (principal)
CPT/HCPCS: 99283

== ENCOUNTER 2023-07-10 16:26 | Emergency (ER) | payer OTHER ==
--- OUTSIDE RECORDS SUMMARY | 2023-07-10 16:29 | XMS REPORT | Continuity of Care Document ---
:2000 Author Organization [facility] t Address [address] [place] [address] [place] [id number] Care Team Providers Name Role Phone PCP, PATIENT DOES NOT HAVE A Primary Care Physician UnavailYARA Varela Attending Clinician Unavailable Yara Serna MD Attending Clinician FER ANDREA Attending Clinician Unavailable Traci Mills MD Attending Clinician Doctor Unassigned, [place] Attending Clinician Unavailable YARIMA, WAKILI S Attending Clinician Unavailable YARA SERNA Admitting Clinician Unavailable Payers Payer Name Policy Type Policy Number Effective Date Expiration Date Chiquita LARA MEDICARE [id number] 2022 2023 OUT OF NETWORK 00:00:00 00:00:00 MEDICAID OF [place] [id number] 2023 00:00:00 MEDICARE PART A [id number] 2018 \\T\\ B 00:00:00 Problems Condition Condition Condition Status Onset Resolution Last Treating Co mments Source Name Details Category Date Date Treatment Clinician Date No known No known Disease Unive rs active active ity of problems problems [facility] Allergies, Adverse Reactions, Alerts Allergy Allergy Status Severity Reaction(s) Onset Inactive Treating Comm ents Source Name Type Date Date Clinician ASPIRIN DRUG Active Swelling Univers (BULK) 10-27 ity of 00:00: [place] 00 Medical Branch TRAMADOL DRUG Active Other-Cmnt Univ ers INGREDI 10-27 ity of 00:00: [place] 00 Medical Branch Aspirin Propensi Active Swelling Unive rs (Bulk) ty to 10-27 ity of adverse 00:00: [place] reaction 00 Medical s Branch Tramadol Propensi Active Other - See Shakes U nivers ty to comments 10-27 ity of adverse 00:00: [place] reaction 00 Medical s Branch Social History Social Habit Start Date Stop Date Quantity Comments Source Exposure to Not sure [facility] SARS-CoV-2 (event) Medica l Branch Gender identity [facility] Sexual orientation Univer [facility] Medical [place] History of Social 2023-04-19 2023-04-19 Univers it of [place] function 00:00:00 00:00:00 Medical Branch Alcohol intake 2023-04-19 2023-04-19 0 /d [facility] 00:00:00 00:00:00 Medical [place] Sex Assigned At [birth year] [facility] Medical Branch Smoking Status Start Date Stop Date Source Never smoked tobacco [facility] Medications Ordered Filled Start Stop Current Ordering Indication Dosage Frequency Signature Comments Components Source Medication Medication Date Date Medication? Clinician (SIG) Name Name iohexol 2022- No [id number] 80mL 80 mL, Un laverne (OMNIPAQUE 04-19 Intravenou it y of 350 22:15: 21:45 s, ONCE, 1 [place] BULK-100 00 :00 dose, On Medical mL) Tue Branch injection 04/19/23 at 80 mL 1715, Routine benzonatate 2019-08 Yes [id number] 200mg Take 1 Univers 200 mg 1-21 capsule by ity of capsule 00:00: mouth 3 [place] 00 (three) Medical times Branch daily as needed for Cough. benzonatate 2019-08 Yes [id number] 200mg Take 1 Univers 200 mg 1-21 capsule by ity of capsule 00:00: mouth 3 [place] 00 (three) Medical times Branch daily as needed for Cough. benzonatate 2019-08 Yes [id number] 200mg Take 1 Univers 200 mg 1-21 capsule by ity of capsule 00:00: mouth 3 [place] 00 (three) Medical times Branch daily as needed for Cough. promethazin Yes [id number] 5mL Take 5 mL Univers e-codeine 3-01 by mouth 4 ity of 6.25-10 00:00: (four) [place] mg/5 mL 00 times Medical syrup daily as Branch needed for Cough. sod Yes [id number] 1{bottl Use 1 Univ ers chlor-bicar 3-01 e} Bottle in ity of b-squeez 00:00: each [place] bottle 00 nostril 2 Medical (NEILMED (two) Branch SINUS RINSE times COMPLETE) daily. Use pkdv in hot shower 1 hour before bedtime promethazin Yes [id number] 5mL Take 5 mL Univers e-codeine 3-01 by mouth 4 ity of 6.25-10 00:00: (four) [place] mg/5 mL 00 times Medical syrup daily as Branch needed for Cough. sod Yes [id number] 1{bottl Use 1 Univ ers chlor-bicar 3-01 e} Bottle in ity of b-squeez 00:00: each [place] bottle 00 nostril 2 Medical (NEILMED (two) Branch SINUS RINSE times COMPLETE) daily. Use pkdv in hot shower 1 hour before bedtime promethazin Yes [id number] 5mL Take 5 mL Univers e-codeine 3-01 by mouth 4 ity of 6.25-10 00:00: (four) [place] mg/5 mL 00 times Medical syrup daily as Branch needed for Cough. sod Yes [id number] 1{bottl Use 1 Univ ers chlor-bicar 3-01 e} Bottle in ity of b-squeez 00:00: each [place] bottle 00 nostril 2 Medical (NEILMED (two) Branch SINUS RINSE times COMPLETE) daily. Use pkdv in hot shower 1 hour before bedtime promethazin Yes [id number] 5mL Take 5 mL Univers e-codeine 3-01 by mouth 4 ity of 6.25-10 00:00: (four) [place] mg/5 mL 00 times Medical syrup daily as Branch needed for Cough. sod Yes [id number] 1{bottl Use 1 Univ ers chlor-bicar 3-01 e} Bottle in ity of b-squeez 00:00: each [place] bottle 00 nostril 2 Medical (NEILMED (two) Branch SINUS RINSE times COMPLETE) daily. Use pkdv in hot shower 1 hour before bedtime promethazin Yes [id number] 5mL Take 5 mL Univers e-codeine 3-01 by mouth 4 ity of 6.25-10 00:00: (four) [place] mg/5 mL 00 times Medical syrup daily as Branch needed for Cough. sod Yes [id number] 1{bottl Use 1 Univ ers chlor-bicar 3-01 [...] daily as needed for Congestion /Allergies . chlorproMAZ 0 Yes 100mg Take 100 U nivers INE 9-16 mg by ity of (THORAZINE) 14:30: mouth 3 [place] as 100 mg 57 (three) Medical tablet times Branch daily. Guanfacine Yes Take by [facility] ers (INTUNIV) 4 9-16 mouth. ity of mg Tb24 14:30: [place] 57 Medical Branch paliperidon 0 Yes 3mg Take 3 mg U nivers e (INVEGA) 9-16 by mouth ity o f 3 mg 24 hr 14:30: daily. [place] tablet 57 Medical Branch benztropine 0 Yes 1mg Take 1 mg U nivers (COGENTIN) 9-16 by mouth 2 ity of 1 mg tablet 14:30: (two) [place] 57 times Medical daily. Branch paliperidon 0 Yes 3mg Take 3 mg U nivers e (INVEGA) 9-16 by mouth ity o f 3 mg 24 hr 14:30: daily. [place] tablet 57 Medical Branch benztropine 2014-0 Yes 1mg Take 1 mg U nivers (COGENTIN) 9-16 by mouth 2 ity of 1 mg tablet 14:30: (two) [place] 57 times Medical daily. Branch chlorproMAZ 0 Yes 100mg Take 100 U nivers INE 9-16 mg by ity of (THORAZINE) 14:30: mouth 3 [place] as 100 mg 57 (three) Medical tablet times Branch daily. Guanfacine 0 Yes Take by Univ ers (INTUNIV) 4 9-16 mouth. ity of mg Tb24 14:30: [address] chlorproMAZ 2014-0 Yes 100mg Take 100 U nivers INE 9-16 mg by ity of (THORAZINE) 14:30: mouth 3 [place] as 100 mg 57 (three) Medical tablet times Branch daily. Guanfacine 2014-0 Yes Take by [facility] ers (INTUNIV) 4 9-16 mouth. ity of mg Tb24 14:30: [address] paliperidon 2014-0 Yes 3mg Take 3 mg U nivers e (INVEGA) 9-16 by mouth ity o f 3 mg 24 hr 14:30: daily. [address] benztropine 2014-0 Yes 1mg Take 1 mg U nivers (COGENTIN) 9-16 by mouth 2 ity of 1 mg tablet 14:30: (two) [place] 57 times Medical daily. Branch methylpheni 2014-0 Yes 36mg Take 36 mg Univers date 9-16 by mouth ity of (CONCERTA) 14:30: every [place] 36 mg 24 hr 56 morning. Medi sky tablet Branch methylpheni 2014-0 Yes 36mg Take 36 mg Univers date 9-16 by mouth ity of (CONCERTA) 14:30: every [place] 36 mg 24 hr 56 morning. Medi sky tablet Branch methylpheni 2014-0 Yes 36mg Take 36 mg Univers date 9-16 by mouth ity of (CONCERTA) 14:30: every [place] 36 mg 24 hr 56 morning. [facility] sky tablet Branch paliperidon 2014-0 Yes 3mg Take 3 mg U nivers e (INVEGA) 9-16 by mouth ity o f 3 mg 24 hr 09:30: daily. [address] benztropine 2014-0 Yes 1mg Take 1 mg U nivers (COGENTIN) 9-16 by mouth 2 ity of 1 mg tablet 09:30: (two) [place] 57 times Medical daily. Branch chlorproMAZ 2014-0 Yes 100mg Take 100 U nivers INE 9-16 mg by ity of (THORAZINE) 09:30: mouth 3 [place] 100 mg 57 (three) Medical tablet times Branch daily. Guanfacine 2014-0 Yes Take by [facility] ers (INTUNIV) 4 9-16 mouth. ity of mg Tb24 09:30: [place] 57 Medical Branch paliperidon Yes 3mg Take 3 mg U nivers e (INVEGA) 9-16 by mouth ity o f 3 mg 24 hr 09:30: daily. [place] tablet 57 Medical Branch benztropine Yes 1mg Take 1 mg U nivers (COGENTIN) 9-16 by mouth 2 ity of 1 mg tablet 09:30: (two) [place] 57 times Medical daily. Branch chlorproMAZ Yes 100mg Take 100 U nivers INE 9-16 mg by ity of (THORAZINE) 09:30: mouth 3 [place] as 100 mg 57 (three) Medical tablet times Branch daily. Guanfacine Yes Take by Univ ers (INTUNIV) 4 9-16 mouth. ity of mg Tb24 09:30: [place] [address] Medical Branch methylpheni Yes 36mg Take 36 mg Univers date 916 by mouth ity of (CONCERTA) 09:30: every [place] 36 mg 24 hr 56 morning. Medi sky tablet Branch methylpheni Yes 36mg Take 36 mg Univers date 916 by mouth ity of (CONCERTA) 09:30: every [place] 36 mg 24 hr 56 morning. Medi sky tablet Branch CIPRODEX Yes 6 drops to Uni vers 0.3-0.1 % 8-10 infetced ity of OTIC DRPS 00:00: ear bid [place] 00 for 7 days Medical Branch CIPRODEX Yes 6 drops to Uni vers 0.3-0.1 % 8-10 infetced ity of OTIC DRPS 00:00: ear bid 00 for 7 days Medical Branch CIPRODEX Yes 6 drops to Uni vers 0.3-0.1 % 8-10 infetced ity of OTIC DRPS 00:00: ear bid 00 for 7 days Medical Branch CIPRODEX Yes 6 drops to Uni vers 0.3-0.1 % 8-10 infetced ity of OTIC DRPS 00:00: ear bid [place] 00 for 7 days Medical Branch CIPRODEX Yes 6 drops to Uni vers 0.3-0.1 % 8-10 infetced ity of OTIC DRPS 00:00: ear bid 00 for 7 days Medical Branch Vital Signs Vital Name Observation Time Observation Value Comments Source Systolic blood 2023-04-19 23:00:00 110 mm[Hg] Univer sity of pressure [place] [facility] Diastolic blood 2023-04-19 23:00:00 66 mm[Hg] Unive rsity of pressure [place] [facility] Heart rate 2023-04-19 23:00:00 83 /min Universi ty of [place] [facility] Respiratory rate 2023-04-19 23:00:00 18 /min Univ ersity of [place] [facility] Oxygen saturation in 2023-04-19 23:00:00 95 /min University of Arterial blood by [place] [employer] sky Pulse oximetry Branch Systolic blood 2023-04-19 17:43:00 135 mm[Hg] Univer sity of pressure [place] [facility] Diastolic blood 2023-04-19 17:43:00 93 mm[Hg] Unive rsity of pressure [place] [facility] Heart rate 2023-04-19 17:43:00 103 /min Universi ty of [place] [facility] Body temperature 2023-04-19 17:43:00 36.83 Whitney Univ ersity of [place] [facility] Respiratory rate 2023-04-19 17:43:00 18 /min Univ ersity of [place] [facility] Body weight 2023-04-19 17:43:00 74.844 kg Universi ty of [place] [facility] BMI 2023-04-19 17:43:00 23.01 kg/m2 Universi ty of [place] [facility] Oxygen saturation in 2023-04-19 17:43:00 97 /min University of Arterial blood by [facility] sky Pulse oximetry Branch Systolic blood 2020-06-28 09:19:00 130 mm[Hg] Univer sity of pressure [place] [facility] Diastolic blood 2020-06-28 09:19:00 79 mm[Hg] Unive rsity of pressure [place] [facility] Heart rate 2020-06-28 09:19:00 89 /min Universi ty of [place] [facility] Body temperature 2020-06-28 09:19:00 35.78 [facility] Univ ersity of [place] [facility] Respiratory rate 2020-06-28 09:19:00 16 /min Univ ersity of [place] [facility] Body height 2020-06-28 09:19:00 180.3 cm Universi ty of [place] [facility] Body weight 2020-06-28 09:19:00 74.844 kg Universi ty of [place] [facility] BMI 2020-06-28 09:19:00 23.01 kg/m2 Universi ty of [place] [facility] Oxygen saturation in 2020-06-28 09:19:00 98 /min University of Arterial blood by [facility] [place] [facility] Pulse oximetry Branch Systolic blood 2020-06-28 09:19:00 130 mm[Hg] Univer sity of pressure [place] [facility] Diastolic blood 2020-06-28 09:19:00 79 mm[Hg] Unive rsity of pressure [place] [facility] Heart rate 2020-06-28 09:19:00 89 /min Universi ty of [place] [facility] Body temperature 2020-06-28 09:19:00 35.78 [place] Univ ersity of [place] [facility] Respiratory rate 2020-06-28 09:19:00 16 /min Univ ersity of [place] [facility] Body height 2020-06-28 09:19:00 180.3 cm Universi ty of [place] [facility] Body weight 2020-06-28 09:19:00 74.844 kg Universi ty of [place] [facility] BMI 2020-06-28 09:19:00 23.01 kg/m2 Universi ty of [place] [facility] Oxygen saturation in 2020-06-28 09:19:00 98 /min University of Arterial blood by [facility] [place] [facility] Pulse oximetry Branch Systolic blood 2019-10-28 08:46:00 141 mm[Hg] Univer sity of pressure [place] [facility] Diastolic blood 2019-10-28 08:46:00 91 mm[Hg] Unive rsity of pressure [place] [facility] Heart rate 2019-10-28 08:46:00 105 /min Universi ty of [place] [facility] Body temperature 2019-10-28 08:46:00 36.61 [place] Univ ersity of [place] [facility] Respiratory rate 2019-10-28 08:46:00 19 /min Univ ersity of [place] [facility] Body height 2019-10-28 08:46:00 180.3 cm Universi ty of [place] [facility] Body weight 2019-10-28 08:46:00 74.844 kg Universi ty of [place] [facility] BMI 2019-10-28 08:46:00 23.01 kg/m2 Universi ty of [place] [facility] Oxygen saturation in 2019-10-28 08:46:00 99 /min University of Arterial blood by [facility] [place] [facility] Pulse oximetry Branch Systolic blood 2019-10-28 08:46:00 141 mm[Hg] Univer sity of pressure [facility] Diastolic blood 2019-10-28 08:46:00 91 mm[Hg] [facility] 2019-10-28 08:46:00 105 /min [facility] Body temperature 2019-10-28 08:46:00 36.61 Whitney [facility] Respiratory rate 2019-10-28 08:46:00 19 /min [facility] Body height 2019-10-28 08:46:00 180.3 cm [facility] Body weight 2019-10-28 08:46:00 74.844 kg [facility] BMI 2019-10-28 08:46:00 23.01 kg/m2 [facility] Oxygen saturation in 2019-10-28 08:46:00 99 /min [facility] blood by [facility] Pulse oximetry Branch Procedures Procedure Date / Time Performed Performing Clinician Toni e BASIC METABOLIC PANEL 2023-04-19 21:31:00 Yara Serna [facility] (NA, K, CL, CO2, Medical Branch GLUCOSE, BUN, CREATININE, CA) CBC WITH DIFF 2023-04-19 21:31:00 Yara Serna [facility] EXTRA TUBE LT. BLUE 2023-04-19 21:31:00 Yara Serna [facility] EXTRA TUBE DK. GREEN 2023-04-19 21:31:[address] [facility] CONSENT/REFUSAL FOR 2023-04-19 17:31:55 Doctor Unassigned, [facility] AND Name Medical Branch TREATMENT CONSENT/REFUSAL FOR 2020-06-28 09:10:22 Doctor Unassigned, No [facility] AND Name Medical Branch TREATMENT Encounters Start End Encounter Admission Attending Care Care Encounter Source Date/Time Date/Time Type Type Clinicians Facility Department ID 2023-04-19 2023-04-19 Emergency X BEN SERNA ERT [id number] [facility] 12:48:00 19:06:00 YARA cristobal [facility] 2023-04-19 2023-04-19 Emergency Carlos, TRAUMA 1.2.840.114 [id number] Univers 12:48:00 19:06:00 Yara S [place] 350.1.13.10 it y of 4.2.7.2.686 [facility] s [id number] [facility] 014 Branch 2023-04-18 2023-04-18 Emergency E ALCANTER, MHBL [facility] [id number] [facility] 17:31:00 19:39:00 FER 02 2020-06-28 2020-06-28 Emergency [facility] [id number] Univers 03:18:00 03:41:00 Gaudencioemelyadilene Porras Deepak 350.1.13.10 ity of [place] 4.2.7.2.686 [facility] [id number] [facility] 084 Branch 2020-06-28 2020-06-28 Emergency [facility] [id number] 03:18:00 03:41:00 Traci Sotelo 350.1.13.10 [place] 4.2.7.2.686 [place] [id number] [facility] 2020-06-28 2020-06-28 Emergency X [facility] ERT [id number] Univers 03:12:00 03:12:00 ity of [facility] 2020-06-28 2020-06-28 Orders Doctor PHILLIPS 1.2.840.114 [id number] Univers 00:00:00 00:00:00 Only Unassigned, SHIRIN 350.1.13.10 ity of [facility] 4.2.7.2.686 [place] [id number] [facility] 009 Branch 2020-06-28 2020-06-28 Orders Doctor PHILLIPS 1.2.840.114 [id number] 00:00:00 00:00:00 Only Unassigned, SHIRIN 350.1.13.10 [place] [facility] 4.2.7.2.686 [id number] 009 2019-10-28 2019-10-28 Emergency [facility] 1.2.939.121 [id number] Univers 03:52:43 04:10:00 Traci Sotelo 350.1.13.10 ity of [place] 4.2.7.2.686 [facility] [id number] [place] [address] Branch 2019-10-28 2019-10-28 Emergency [facility] 1.2.146.239 [id number] 03:52:43 04:10:00 Traci Sotelo 350.1.13.10 [place] 4.2.7.2.686 [place] [id number] [facility] 2019-10-28 2019-10-28 Emergency X [facility] ERT [id number] Univers 03:52:43 03:52:43 TRACI cristobal [facility] Results This patient has no known results. Notes Date/Time Note Provider Source 2023-04-19 19:05:31 7139-23-20N16:05:31Formatting [place] Dodge [facility] - Health of this note might be different from the original.Pt stable and ready for discharge patient provided with preferred teaching about diagnosis and expected course of illness, AVS and written/handout materials appropriate to problem and teaching. Patient states understanding and questions answered. Ambulatory to lobby with steady gait, no distress noted. 00308-8Sgiphtcle department SaceUS1249-27-68I13:05:42Emerthe [facility] department NoteTXT1.2.840.454078.1.13.104. 2.7.2.857870|[id number] [facility] for patient [id number] A Brown RNUTCIBOLA GENERAL [facility] - [address] [place] [address] GpheYuygnduddNikhaqqwjJIDX27180 26716DLMJJSDYRKZJLTKUFRWSLQ2288 -09-12T19:05:421.2.840.856406.1 .72.3.15|1.2.840.657041.1.13.10 4.2.7.2.727879_[id number] 2023-04-19 17:22:23 9969-05-01O77:22:23Formatting [facility] - Health of this note might be different from the original.Pt resting in bed comfortably in NAD 69655-5Rbxzhhzps department PchdTT4693-95-63F27:22:35Emerb[facility] NoteTXT1.2.840.878148.1.13.104. 2.7.2.235319|[id number] ble for patient whgt26616-9BgilPIIGTFGFWV[address]TX[address] 79238XLSOXBXKKFLFMSDSAXMCHG4687 -09-12T17:22:351.2.840.405612.1 .72.3.15|1.2.840.581677.1.13.10 4.2.7.2.727879_[id number] 2023-04-19 16:45:00 7542-03-42P36:45:00Formatting [facility] - Health of this [place] [address]-2Jnpgutyby department IegdCS0110-07-64I26:47:11Emerbaptist health medical center NoteTXT1.2.840.379215.1.13.104. 2.7.2.328617|[id number] ble for patient nrly47272-6QutbVRNJVFTKLB71 [address]TXTX[address] 86696OBDVHAQLAQVXIYUVWJEFTJ7689 -09-12T16:47:111.2.840.783060.1 .72.3.15|1.2.840.731352.1.13.10 4.2.7.2.727879_[id number] 2023-04-19 16:06:41 8909-42-47H62:06:41Formatting [facility] - Health of this note might be different from the original.Gerber Bella Willis Jr. is a 23 year old male to ED for abd pain. Pt reports hx of ex lap approx 3 years ago with a stitch that was never removed, pt reports unhealing wound with stitch sticking out. Pt reports he was seen at OSH yesterday and they cut the stitch and now pain has increased. Also c/o increased bloating for last 4-5 months. 87963-3Xrblkufes department DpduPT5849-11-55E28:07:04[facility] department NoteTXT1.2.840.647660.1.13.104. 2.7.2.774244|[id number] ble for patient dmjt55271-0IxacVMPMNRADMM[address]TXTX[address] 83455QYBDGSOANKBZFPPFQCKORR5437 -09-12T16:07:041.2.840.296184.1 .72.3.15|1.2.840.457998.1.13.10 4.2.7.2.727879_[id number] 2023-04-19 12:45:57 5743-34-58F58:45:57Formatting Gisella Chambers [facility] of this note might be different RN from the original.Gerber Parikhchaz Walters is a 23 year old male to ED for abd pain. Pt reports hx of ex lap approx 3 years ago with a stitch that was never removed, pt reports unhealing wound with stitch sticking out. Pt reports he was seen at OSH yesterday and they cut the stitch and now pain has increased. 56337-3Homtvwabk department Triage klgzLJ1707-41-63V29:48:15Emerthe [facility] department Triage noteTXT1.2.840.026712.1.13.104. 2.7.2.144275|[id number] ble for patient haaa51478-5Mgzxbiceu department IiqfXZ776440587Ykbxffn [address] [place] [address]on[place] 01223EZUCIOXWIKXEPOJBJHAGFK3892 -09-12T12:48:151.2.840.602478.1 .72.3.15|1.2.840.895835.1.13.10 4.2.7.2.727879_[id number] 2023-04-19 12:31:00 4958-63-64C22:31:00Formatting [facility] of this note might be different from the original.Addendum:I personally evaluated and examined this patient and participated in decision-making for this patient with resident, Dr. Chopra. Please see the resident note for further details.Labs and CT A/P ordered to evaluate abd pain, intermittent fevers, drainage from abdomen site of retained suture. Pt's labs and CT A/P reviewed, no acute findings. Discussed results with patient, advised to f/U with a PCP as needed.CLINICAL IMPRESSION:Abdominal painDISPO: DischargeCONDITION: Taylor Serna MDEmerarkansas children's northwest hospitalcy Medicine Yara Serna MD04/19/23 183 22418-9Zrsuzqfqd Emergency department NluiDP9967-88-08O19:39:55Physic yoselyn Emergency department NoteTXT1.2.840.191357.1.13.104. 2.7.2.043640|[id number] ble for patient occo60560-2Xhtbxxblg department Note[address]on[place]veston[place] 48373NGHTNXVNTJPUDKPHKRROTR8658 -09-12T18:39:551.2.840.402429.1 .72.3.15|1.2.840.873580.1.13.10 4.2.7.2.727879_[id number]"
[2023-07-10] MEDS ORDERED: LIDOCAINE 1% MPF 30 ML VIAL ONE (17:01)
[2023-07-10] MEDS ORDERED: HYDROCODONE/APAP 7.5/325 MG TAB ONE (17:04)
--- NOTE | 2023-07-10 17:21 | ER ---
Nurse's Notes [facility] Name: Gerber Willis Jr Age: 23 yrs Sex: Male : 2000 Arrival Date: 07/10/2023 Time: 16:26 Bed 12 Private MD: Diagnosis: Pilonidal cyst with abscess Presentation: 07/10 16:38 Chief complaint: Abscess on buttock x 1 week. Coronavirus screen: At this time, the client does not indicate any symptoms associated with coronavirus-19. Ebola Screen: No symptoms or risks identified at this time. Initial Sepsis Screen: Does the patient meet any 2 criteria? No. Patient's initial sepsis screen is negative. Does the patient have a suspected source of infection? No. Patient's initial sepsis screen is negative. Risk Assessment: Do you want to hurt yourself or someone else? Patient reports no desire to harm self or others. Onset of symptoms was July 03, 2023. 16:38 Method Of Arrival: Ambulatory 16:38 Acuity: MORIS 4 Triage Assessment: 16:55 General: Appears in no apparent distress. comfortable, Behavior is calm, cooperative. cm10 Pain: Complains of pain in buttocks. EENT: No deficits noted. No signs and/or symptoms were reported regarding the EENT system. Neuro: No deficits noted. Potter Agitation-Sedation Scale (RASS): 0 - Alert and Calm Level of Consciousness is awake, alert, obeys commands, Oriented to person, place, time, situation. Cardiovascular: No deficits noted. Patient's skin is warm and dry. Respiratory: No deficits noted. Airway is patent Respiratory effort is even, unlabored, Respiratory pattern is regular, symmetrical. GI: No deficits noted. No signs and/or symptoms were reported involving the gastrointestinal system. : No deficits noted. No signs and/or symptoms were reported regarding the genitourinary system. Derm: Abscess located on buttocks. Musculoskeletal: No deficits noted. Range of motion: intact in all extremities. Historical: - Allergies: 16:40 Aspirin; hb 16:40 tramadol; hb - PMHx: 16:40 ADD/ADHD; Anxiety; Bipolar disorder; Depression; hb Screenin:43 [facility] ED Fall Risk Assessment (Adult) History of falling in the last 3 months, cm10 including since admission No falls in past 3 months (0 pts) Confusion or Disorientation No (0 pts) Intoxicated or Sedated No (0 pts) Impaired Gait No (0 pts) Mobility Assist Device Used No (0 pt) Altered Elimination No (0 pt) Score/Fall Risk Level 0 - 2 = Low Risk Oriented to surroundings, Maintained a safe environment, Hourly rounding (assess needs \T\ fall precautionary measures) done. Abuse screen: Denies threats or abuse. Denies injuries from another. Nutritional screening: No deficits noted. Tuberculosis screening: No symptoms or risk factors identified. Vital Signs: 16:38 BP 125 / 100; Pulse 101; Resp 18; Temp 98.1; Pulse Ox 100% on R/A; Weight 117.93 kg; hb Height 6 ft. 0 in. ; Pain 8/10; 16:38 Body Mass Index 35.26 (117.93 kg, 182.88 cm) 16:38 Pain Scale: Adult hb ED Course: 16:29 Patient arrived in ED. mr 16:34 [facility] 16:34 Sacha Arita MD is Attending Physician. [facility] 16:40 Triage completed. 16:42 Nkechi Mccallum, RN is Primary Nurse. cm10 16:42 Arm band placed on Patient placed in an exam room, on a stretcher. cm10 16:44 Patient has correct armband on for positive identification. Placed in gown. Bed in low cm10 position. Call light in reach. Side rails up X2. Provided Education on: ER process and procedures. . Cardiac monitoring not applicable on this patient. Administered Medications: 16:52 CANCELLED (Duplicate Order): norco10 mg-325 mg 1 tabs PO once cm10 16:53 Drug: Hydrocodone-Acetaminophen PO (7.5 mg-325 mg) 1 tabs PO once Route: PO; cm10 Medication: 16:43 VIS not applicable for this client. cm10 Outcome: 17:21 Discharge ordered by . [facility] 17:37 Patient left the ED. [facility] Signatures: Spring Alvarado, Reg Reg mr ZepedaFlora, RN RN Emmy Justin FNP [place] [address] [address] [facility] Nkechi Mccallum, EV[place] RN 10
--- NOTE | 2023-07-10 17:21 | EDPHYS ---
Physician Documentation [facility] Name: Gerber Willis Jr Age: 23 yrs Sex: Male : 2000 Arrival Date: 07/10/2023 Time: 16:26 Bed 12 Private MD: ED Physician Sacha Arita HPI: 07/10 16:38 This 23 yrs old Male presents to ER via Ambulatory with complaints of Abscess. jh7 16:38 The patient presents with an abscess of the left cleft. Description: The affected area jh7 is moderate sized, localized, erythematous, fluctuant. Onset: The symptoms/episode began/occurred 1 week(s) ago. Possible cause(s): unknown. Associated signs and symptoms: Pertinent positives: swelling, Pertinent negatives: discharge, drainage, fever. Historical: - Allergies: 16:40 Aspirin; hb 16:40 tramadol; hb - PMHx: 16:40 ADD/ADHD; Anxiety; Bipolar disorder; Depression; hb ROS: 16:38 Constitutional: Negative for fever, chills, and weight loss, Eyes: Negative for injury, jh7 pain, redness, and discharge, Neck: Negative for injury, pain, and swelling, Cardiovascular: Negative for chest pain, palpitations, and edema, Respiratory: Negative for shortness of breath, cough, wheezing, and pleuritic chest pain, Abdomen/GI: Negative for abdominal pain, nausea, vomiting, diarrhea, and constipation, Back: Negative for injury and pain, MS/Extremity: Negative for injury and deformity, Neuro: Negative for headache, weakness, numbness, tingling, and seizure, 16:38 Skin: Positive for abscess, of the left cleft, 16:38 All other systems are negative, Exam: 16:38 Constitutional: This is a well developed, well nourished patient who is awake, alert, jh7 and in no acute distress. Head/Face: Normocephalic, atraumatic. Neck: Trachea midline, no thyromegaly or masses palpated, and no cervical lymphadenopathy. Supple, full range of motion without nuchal rigidity, or vertebral point tenderness. No Meningismus. Cardiovascular: Regular rate and rhythm with a normal S1 and S2. No gallops, murmurs, or rubs. Normal PMI, no JVD. No pulse deficits. Respiratory: Lungs have equal breath sounds bilaterally, clear to auscultation and percussion. No rales, rhonchi or wheezes noted. No increased work of breathing, no retractions or nasal flaring. Abdomen/GI: Soft, non-tender, with normal bowel sounds. No distension or tympany. No guarding or rebound. No evidence of tenderness throughout. MS/ Extremity: Pulses equal, no cyanosis. Neurovascular intact. Full, normal range of motion. Neuro: Awake and alert, GCS 15, oriented to person, place, time, and situation. Motor strength 5/5 in all extremities. Sensory grossly intact. Normal gait. 16:38 Skin: abscess, that is moderate sized, of the left cleft, with fluctuance, that is mild, with induration, Vital Signs: 16:38 BP 125 / 100; Pulse 101; Resp 18; Temp 98.1; Pulse Ox 100% on R/A; Weight 117.93 kg; hb Height 6 ft. 0 in. ; Pain 8/10; 16:38 Body Mass Index 35.26 (117.93 kg, 182.88 cm) hb 16:38 Pain Scale: Adult hb Procedures: 17:00 I \T\ D: Incision and drainage was performed for an abscess of the left pilonidal cyst jh7 Prepped with Betadine, Anesthetized with 5 ml's 1% Lidocaine. Incised with #11 blade. Drained moderate amount purulent fluid. bloody fluid. Packed with iodoform gauze, Dressing: non-Adherent dressing, the patient tolerated the procedure well. MDM: 16:34 Patient medically screened. [facility] 17:24 Differential diagnosis: abscess. Data reviewed: vital signs, nurses notes. I considered [facility] the following discharge prescriptions or medication management in the emergency department Medications were administered in the Emergency Department. See MAR. Counseling: I had a detailed discussion with the patient and/or guardian regarding the historical points, exam findings, and any diagnostic results supporting the discharge/admit diagnosis, the need for outpatient follow up, a general surgeon, to return to the emergency department if symptoms worsen or persist or if there are any questions or concerns that arise at home. 07/10 16:46 Order name: Incision \T\ Drainage Setup; Complete Time: 16:56 [facility] 07/10 17:21 Order name: Wound dressing [facility] Administered Medications: 16:52 CANCELLED (Duplicate Order): norco10 mg-325 mg 1 tabs PO once cm10 16:53 Drug: Hydrocodone-Acetaminophen PO (7.5 mg-325 mg) 1 tabs PO once Route: PO; cm10 Disposition Summary: 07/10/23 17:21 Discharge Ordered Notes: Location: Home [facility] Problem: new [facility] Symptoms: have improved [facility] Condition: Stable [facility] Diagnosis - Pilonidal cyst with abscess [facility] Followup: [facility] - With: Private Physician - When: 2 - 3 days - Reason: Recheck today's complaints Discharge Instructions: - Discharge Summary Sheet [facility] - Skin Abscess [facility] - Incision and Drainage [facility] - Pilonidal Cyst [facility] Forms: - Medication Reconciliation Form [facility] - Thank You Letter [facility] - Antibiotic Education [facility] - Patient Portal Instructions [facility] - Leadership Thank You Letter [facility] Prescriptions: - mupirocin 2 % Topical ointment - apply 1 application TOPICAL route 3 times per day for 7 days; 22 gram; Refills: [facility] 0, Product Selection Permitted - Bactrim DS 800-160 mg Oral Tablet - take 1 tablet ORAL route every 12 hours for 10 days; 20 tablet; Refills: 0, [facility] Product Selection Permitted Signatures: Flora Zepeda RN RN Emmy Justin FNP [place] [id number] Nkechi Mccallum RN RN cm10 Corrections: (The following items were deleted from the chart) 16:52 16:46 Vernonia PO 10 mg-325 mg 1 tabs PO once ordered. 7 cm10 16:52 16:52 Vernonia PO 10 mg-325 mg 1 tabs PO once ordered. cm10 cm10
[2023-07-10 18:01] VITALS: BP 125/100; TEMP 98.1; O2SAT 100
== END 2023-07-10 17:37 | disposition home or self-care (01) ==
LOC: ER 16:26
PROC: 0H98XZZ Drainage of Buttock Skin, External Approach (ICD-10-PCS; principal; 2023-07-10)
DX: L05.01 Pilonidal cyst with abscess (principal)
CPT/HCPCS: 99282; 10080; J2001

== ENCOUNTER 2023-07-12 18:35 | Emergency (ER) | payer OTHER ==
--- OUTSIDE RECORDS SUMMARY | 2023-07-12 18:38 | XMS REPORT | Continuity of Care Document ---
:2000 Author Organization [facility] t Address [address] [facility] [address] [place] [address] Care Team Providers Name Role Phone PCP, PATIENT DOES NOT HAVE A Primary Care Physician Unavaila YARA Fontenot Attending Clinician Unavailable Yara Serna MD Attending Clinician Traci Mills MD Attending Clinician Doctor Unassigned, [place] Attending Clinician Unavailable TRACI MILLS Attending Clinician Unavailable YARA SERNA Admitting Clinician Unavailable Payers Payer Name Policy Type Policy Number Effective Date Expiration Date Chiquita mavis PAZNA MEDICARE [id number] 2022 2023 OUT OF NETWORK 00:00:00 00:00:00 MEDICAID [facility] [id number] 2023 00:00:00 MEDICARE PART A [id number] 2018 \\T\\ B 00:00:00 Problems Condition Condition Condition Status Onset Resolution Last Treating Co mments Source Name Details Category Date Date Treatment Clinician Date No known No known Disease Unive rs active active ity of problems problems [facility] Allergies, Adverse Reactions, Alerts Allergy Allergy Status Severity Reaction(s) Onset Inactive Treating Comm ents Source Name Type Date Date Clinician ASPIRIN DRUG Active Swelling Univers (BULK) 3- ity of 00:00: [place] 00 Medical Branch [...] Quantity Comments Source Exposure to Not sure [facility] SARS-CoV-2 (event) Medica l Branch Gender identity [facility] Sexual orientation [facility] Medical [facility] History of Social 2023-04-19 2023-04-19 Univers ity of [place] function 00:00:00 00:00:00 Medical Branch Alcohol intake 2023-04-19 2023-04-19 0 /d [facility] 00:00:00 00:00:00 [facility] Sex Assigned At [birth year] Uni versity [facility] 00:00:00 00:00:00 Medical Branch Smoking Status Start Date Stop Date Source Never smoked tobacco [facility] Medications Ordered Filled Start Stop Current Ordering Indication Dosage Frequency Signature Comments Components Source Medication Medication Date Date Medication? Clinician (SIG) Name Name iohexol 2022- No [id number] 80mL 80 mL, Un laverne (OMNIPAQUE 04-19 Intravenou it y of 350 22:15: 21:45 s, ONCE, 1 [place] BULK-100 00 :00 dose, On Medical mL) [facility] injection 04/19/23 at 80 mL 1715, Routine benzonatate 2019-08 Yes [id number] 200mg Take 1 Univers 200 mg 1-21 capsule by ity of capsule 00:00: mouth 3 [place] 00 (three) Medical times Branch daily as needed for Cough. benzonatate 2019-08 Yes [id number] 200mg Take 1 Univers 200 mg 1-21 capsule by ity of capsule 00:00: mouth 3 [place] 00 (three) Medical times Branch daily as needed for Cough. benzonatate 2019-08 Yes [id number] 200mg Take 1 Univers 200 mg 1-21 capsule by ity of capsule 00:00: mouth 3 [place] 00 (three) Medical times Branch daily as needed for Cough. promethazin Yes [id number] 5mL Take 5 mL Univers e-codeine 3-01 by mouth 4 ity of 6.25-10 00:00: (four) [place] mg/5 mL 00 times Medical syrup daily as Branch needed for Cough. sod Yes [id number] 1{bottl Use 1 Univ ers chlor-bicar 3-01 e} Bottle in ity of b-squeez 00:00: each [place] bottle 00 nostril 2 Medical (NEILMED (two) Branch SINUS RINSE times COMPLETE) daily. Use pkdv in hot shower 1 hour before bedtime promethazin Yes [id number] 5mL Take 5 mL Univers e-codeine 3-01 by mouth 4 ity of 6.25-10 00:00: (four) [place] mg/5 mL 00 times Medical syrup daily as Branch needed for Cough. sod Yes [id number] 1{bottl Use 1 Univ ers chlor-bicar 3-01 e} Bottle in ity of b-squeez 00:00: each [place] bottle 00 nostril 2 Medical (NEILMED (two) Branch SINUS RINSE times COMPLETE) daily. Use pkdv in hot shower 1 hour before bedtime promethazin Yes [id number] 5mL Take 5 mL Univers e-codeine 3-01 by mouth 4 ity of 6.25-10 00:00: (four) [place] mg/5 mL 00 times Medical syrup daily as Branch needed for Cough. sod Yes [id number] 1{bottl Use 1 Univ ers chlor-bicar 3-01 e} Bottle in ity of b-squeez 00:00: each [place] bottle 00 nostril 2 Medical (NEILMED (two) Branch SINUS RINSE times COMPLETE) daily. Use pkdv in hot shower 1 hour before bedtime promethazin Yes [id number] 5mL Take 5 mL Univers e-codeine 3-01 by mouth 4 ity of 6.25-10 00:00: (four) [place] mg/5 mL 00 times Medical syrup daily as Branch needed for Cough. sod Yes [id number] 1{bottl Use 1 Univ ers chlor-bicar 3-01 e} Bottle in ity of b-squeez 00:00: each [place] bottle 00 nostril 2 Medical (NEILMED (two) Branch SINUS RINSE times COMPLETE) daily. Use pkdv in hot shower 1 hour before bedtime promethazin Yes [id number] 5mL Take 5 mL Univers e-codeine 3-01 by mouth 4 ity of 6.25-10 00:00: (four) [place] mg/5 mL 00 times Medical syrup daily as Branch needed for Cough. sod Yes [id number] 1{bottl Use 1 Univ ers chlor-bicar 3-01 [...] needed for Congestion /Allergies . BROMFED DM 2015-0 Yes 7.5mL Take 7.5 Un laverne 2-30-10 2-29 mL by ity of mg/5 mL 00:00: mouth 4 [place] syrup 00 (four) Medical times [facility] daily as needed for Congestion /Allergies . BROMFED DM 2015-0 Yes 7.5mL Take 7.5 Un laverne 2-30-10 2-29 mL by ity of mg/5 mL 00:00: mouth 4 [place] syrup 00 (four) Medical times Branch daily as needed for Congestion /Allergies . paliperidon 2014-0 Yes 3mg Take 3 mg U nivers e (INVEGA) 9-16 by mouth ity o f 3 mg 24 hr 14:30: daily. [place] tablet [address] [place] [address] benztropine 0 Yes 1mg Take 1 mg U nivers (COGENTIN) 9-16 by mouth 2 ity of 1 mg tablet 14:30: (two) [place] [id number] times Medical daily. Branch paliperidon 2014-0 Yes 3mg Take 3 mg U nivers e (INVEGA) 9-16 by mouth ity o f 3 mg 24 hr 14:30: daily. [place] tablet [address] [place] [address] benztropine 2014-0 Yes 1mg Take 1 mg U nivers (COGENTIN) 9-16 by mouth 2 ity of 1 mg tablet 14:30: (two) [place] [address] times Medical daily. Branch chlorproMAZ 0 Yes 100mg Take 100 U nivers INE 9-16 mg by ity of (THORAZINE) 14:30: mouth 3 [place] as 100 mg 57 (three) Medical tablet times Branch daily. Guanfacine 2014-0 Yes Take by [facility] ers (INTUNIV) 4 9-16 mouth. ity of mg Tb24 14:30: [address] chlorproMAZ 2014-0 Yes 100mg Take 100 U nivers INE 9-16 mg by ity of (THORAZINE) 14:30: mouth 3 [place] as 100 mg 57 (three) Medical tablet times Branch daily. Guanfacine 2014-0 Yes Take by [facility] ers (INTUNIV) 4 9-16 mouth. ity of mg Tb24 14:30: [address] paliperidon 2014-0 Yes 3mg Take 3 mg U nivers e (INVEGA) 9-16 by mouth ity o f 3 mg 24 hr 14:30: daily. [place] tablet [address] [place] [address] benztropine 2014-0 Yes 1mg Take 1 mg U nivers (COGENTIN) 9-16 by mouth 2 ity of 1 mg tablet 14:30: (two) [place] 57 times Medical daily. Branch chlorproMAZ 2014-0 Yes 100mg Take 100 U nivers INE 9-16 mg by ity of (THORAZINE) 14:30: mouth 3 [place] as 100 mg 57 (three) Medical tablet times [facility] daily. Guanfacine 2014-0 Yes Take by [facility] ers (INTUNIV) 4 9-16 mouth. ity of mg Tb24 14:30: [address] methylpheni 2014-0 Yes 36mg Take 36 mg Univers date 9-16 by mouth ity of (CONCERTA) 14:30: every [place] 36 mg 24 hr [address] [facility] tablet Branch methylpheni 0 Yes 36mg Take 36 mg Univers date 9-16 by mouth ity of (CONCERTA) 14:30: every [place] 36 mg 24 hr [address] [facility] tablet Branch methylpheni 0 Yes 36mg Take 36 mg Univers date 9-16 by mouth ity of (CONCERTA) 14:30: every [place] 36 mg 24 hr [address] [facility] tablet Branch paliperidon 0 Yes 3mg Take 3 mg U nivers e (INVEGA) 9-16 by mouth ity o f 3 mg 24 hr 09:30: daily. [address] benztropine 2014-0 Yes 1mg Take 1 mg U nivers (COGENTIN) 9-16 by mouth 2 ity of 1 mg tablet 09:30: (two) [place] 57 times Medical daily. Branch chlorproMAZ 0 Yes 100mg Take 100 U nivers INE 9-16 mg by ity of (THORAZINE) 09:30: mouth 3 [place] as 100 mg 57 (three) Medical tablet times [facility] daily. Guanfacine 2014-0 Yes Take by [facility] ers (INTUNIV) 4 9-16 mouth. ity of mg Tb24 09:30: [address] paliperidon 2014-0 Yes 3mg Take 3 [...] mg Tb24 09:30: [place] 57 Medical Branch methylpheni Yes 36mg Take 36 mg Univers date 16 by mouth ity of (CONCERTA) 09:30: every [...] 23:00:00 110 mm[Hg] Univer sity of pressure [facility] Diastolic blood 2023-04-19 23:00:00 66 mm[Hg] Unive rsity of pressure [place] Medical [facility] Heart rate 2023-04-19 23:00:00 83 /min Universi ty of [place] Medical [facility] Respiratory rate 2023-04-19 23:00:00 18 /min Univ ersity of [place] Medical [facility] Oxygen saturation in 2023-04-19 23:00:00 95 /min University of Arterial blood by [place] [employer] sky Pulse oximetry Branch Systolic blood 2023-04-19 17:43:00 135 mm[Hg] Univer sity of pressure [place] [facility] Diastolic blood 2023-04-19 17:43:00 93 mm[Hg] Unive rsity of pressure [place] [facility] Heart rate 2023-04-19 17:43:00 103 /min Universi ty of [place] [facility] Body temperature 2023-04-19 17:43:00 36.83 Whitney Univ ersity of [place] [facility] Respiratory rate 2023-04-19 17:43:00 18 /min Univ ersity of [place] [facility] Body weight 2023-04-19 17:43:00 74.844 kg Universi ty of [place] [facility] BMI 2023-04-19 17:43:00 23.01 kg/m2 Universi ty of [place] [facility] Oxygen saturation in 2023-04-19 17:43:00 97 /min University of Arterial blood by [place] [employer] sky Pulse oximetry Branch Systolic blood 2020-06-28 09:19:00 130 mm[Hg] Univer sity of pressure [place] [facility] Diastolic blood 2020-06-28 09:19:00 79 mm[Hg] Unive rsity of pressure [place] [facility] Heart rate 2020-06-28 09:19:00 89 /min Universi ty of [place] [facility] Body temperature 2020-06-28 09:19:00 35.78 Whitney Univ ersity of [place] [facility] Respiratory rate 2020-06-28 09:19:00 16 /min Univ ersity of [place] [facility] Body height 2020-06-28 09:19:00 180.3 cm Universi ty of [place] [facility] Body weight 2020-06-28 09:19:00 74.844 kg Universi ty of [place] Medical Branch BMI 2020-06-28 09:19:00 23.01 kg/m2 Universi ty of [place] [facility] Oxygen saturation in 2020-06-28 09:19:00 98 /min University of Arterial blood by [facility] Pulse oximetry Branch Systolic blood 2020-06-28 09:19:00 130 mm[Hg] Univer sity of pressure [place] Medical [facility] Diastolic blood 2020-06-28 09:19:00 79 mm[Hg] Unive rsity of pressure [place] Medical [facility] Heart rate 2020-06-28 09:19:00 89 /min Universi ty of [place] [facility] Body temperature 2020-06-28 09:19:00 35.78 [place] Univ ersity of [place] [facility] Respiratory rate 2020-06-28 09:19:00 16 /min Univ ersity of [place] [facility] Body height 2020-06-28 09:19:00 180.3 cm Universi ty of [place] [facility] Body weight 2020-06-28 09:19:00 74.844 kg Universi ty of [place] [facility] BMI 2020-06-28 09:19:00 23.01 kg/m2 Universi ty of [place] [facility] Oxygen saturation in 2020-06-28 09:19:00 98 /min University of Arterial blood by [facility] Pulse oximetry Branch Systolic blood 2019-10-28 08:46:00 141 mm[Hg] Univer sity of pressure [place] [facility] Diastolic blood 2019-10-28 08:46:00 91 mm[Hg] Unive rsity of pressure [place] [facility] Heart rate 2019-10-28 08:46:00 105 /min Universi ty of [place] [facility] Body temperature 2019-10-28 08:46:00 36.61 [place] Univ ersity of [place] [facility] Respiratory rate 2019-10-28 08:46:00 19 /min Univ ersity of [place] [facility] Body height 2019-10-28 08:46:00 180.3 cm Universi ty of [place] [facility] Body weight 2019-10-28 08:46:00 74.844 kg Universi ty of [place] [facility] BMI 2019-10-28 08:46:00 23.01 kg/m2 Universi ty of [place] [facility] Oxygen saturation in 2019-10-28 08:46:00 99 /min University of Arterial blood by [facility] Pulse oximetry Branch Systolic blood 2019-10-28 08:46:00 141 mm[Hg] Univer sity of pressure [place] [facility] Diastolic blood 2019-10-28 08:46:00 91 mm[Hg] Unive rsity of pressure [place] [facility] Heart rate 2019-10-28 08:46:00 105 /min [facility] Body temperature 2019-10-28 08:46:[address] [facility] Respiratory rate 2019-10-28 08:46:00 19 /min [facility] Body height 2019-10-28 08:46:00 180.3 cm [facility] Body weight 2019-10-28 08:46:00 74.844 kg [facility] BMI 2019-10-28 08:46:00 23.01 kg/m2 [facility] Oxygen saturation in 2019-10-28 08:46:00 99 /min [facility] Arterial blood by [facility] Pulse oximetry Branch Procedures Procedure Date / Time Performed Performing Clinician [facility] e BASIC METABOLIC PANEL 2023-04-19 21:31:00 Yara Serna [facility] (NA, K, CL, CO2, Medical Branch GLUCOSE, BUN, CREATININE, CA) CBC WITH DIFF 2023-04-19 21:31:00 Yara Serna [facility] EXTRA TUBE LT. BLUE 2023-04-19 21:31:00 Yara Serna [facility] EXTRA TUBE DK. GREEN 2023-04-19 21:31:[address] [facility] CONSENT/REFUSAL FOR 2023-04-19 17:31:55 Doctor Unassigned, No [facility] [place] DIAGNOS[facility] AND Name [facility] TREATMENT CONSENT/REFUSAL FOR 2020-06-28 09:10:22 Doctor Unass[facility], [facility] TREATMENT Encounters Start End Encounter Admission Attending Care Care Encounter Source Date/Time Date/Time Type Type Clinicians Facility Department ID 2023-04-19 2023-04-19 Emergency X DAPHNE [facility] ERT [id number] Univers 12:48:00 19:06:00 YARA cristobal [facility] 2023-04-19 2023-04-19 Emergency Daphne, TRAUMA 1.2.840.114 [id number] Univers 12:48:00 19:06:00 Yara Porras [place] 350.1.13.10 it y of 4.2.7.2.686 [facility] [id number] [facility] 014 Branch 2020-06-28 2020-06-28 Emergency [facility], [facility] [id number] 03:18:00 03:41:00 Traci [place] 350.1.13.10 [place] 4.2.7.2.686 Ace [id number] 2020-06-28 2020-06-28 Emergency [facility] [id number] [facility] [place] 03:18:00 03:41:00 Traci [place] 350.1.13.10 ity of [place] 4.2.7.2.686 [facility] [id number] [address] 2020-06-28 2020-06-28 Emergency X [facility] ERT [id number] Univers 03:12:00 03:12:00 ity of [facility] 2020-06-28 2020-06-28 Orders Doctor PHILLIPS 1.2.840.114 [id number] 00:00:00 00:00:00 Only Unassigned, SHIRIN 350.1.13.10 [place] [facility] 4.2.7.2.686 [id number] 2020-06-28 2020-06-28 Orders Doctor ALAN 1.2.840.114 [id number] [facility] [place] 00:00:00 00:00:00 Only Unassigned, SHIRIN 350.1.13.10 ity of [place] [facility] 4.2.7.2.686 [place]andy [id number] [facility] 009 [facility] 2019-10-28 2019-10-28 Emergency [facility] [id number] 03:52:43 04:10:00 Traci Porras [place] 350.1.13.10 [place] 4.2.7.2.686 Ace [id number] [facility] 2019-10-28 2019-10-28 Emergency [facility] [id number] [facility] [place] 03:52:43 04:10:00 Traci Porras [place] 350.1.13.10 ity of [place] 4.2.7.2.686 [facility] [id number] [address] 2019-10-28 2019-10-28 Emergency X MARILUZ [facility] ERT [id number] Univers 03:52:43 03:52:43 TRACI cristobal [facility] Results This patient has no known results. Notes Date/Time Note Provider Source 2023-04-19 19:05:31 4769-90-79Z26:05:31Formatting [place] [facility] - [facility] of this note might be different from the original.Pt stable and ready for discharge patient provided with preferred teaching about diagnosis and expected course of illness, AVS and written/handout materials appropriate to problem and teaching. Patient states understanding and questions answered. Ambulatory to lobby with steady gait, no distress noted. 46206-5Entllxunf department OefwXQ2938-42-70U48:05:42[facility] [address] department NoteTXT1.2.840.170852.1.13.104. 2.7.2.442094|[id number] ble for patient wdgh30811-4XkbyHO727912681Oxnk A Brown [facility] - [address] 20435QBFIBPRKSHZJVHNPHHVYRV0271 -09-12T19:05:421.2.840.923017.1 .72.3.15|1.2.840.541523.1.13.10 4.2.7.2.727879_[id number] 2023-04-19 17:22:23 2952-05-75L83:22:23Formatting [facility] - [facility] of this note might be different from the original.Pt resting in bed comfortably in NAD 05652-8Zgtiwiugh department BmcoUG6024-36-84H71:22:35[facility] [address] department NoteTXT1.2.840.909026.1.13.104. 2.7.2.954147|[id number] ble for patient orto38765-6TskjQMCSEQXRSB[address] 61390FKRUXRYMXGTNLXZYVOKJQM2860 -09-12T17:22:351.2.840.459934.1 .72.3.15|1.2.840.175125.1.13.10 4.2.7.2.727879_[id number] 2023-04-19 16:45:00 1213-86-15H76:45:00Formatting [facility] - Health of this note [place] [address]-2Fskwgibnn department HfmmAJ5546-17-29R88:47:11[facility] [address] department NoteTXT1.2.840.933630.1.13.104. 2.7.2.933615|[id number] ble for patient rmdi35693-4ZihbBVINAWVMSE[address] 64495DVCHNHWVDOWGVDTMDPBDBZ2209 -09-12T16:47:111.2.840.436975.1 .72.3.15|1.2.840.612999.1.13.10 4.2.7.2.727879_[id number] 2023-04-19 16:06:41 2025-96-52B42:06:41Formatting [facility] Health of this note might be different from the original.Gerber Patton Alba Samuels. is a 23 year old male to ED for abd pain. Pt reports hx of ex lap approx 3 years ago with a stitch that was never removed, pt reports unhealing wound with stitch sticking out. Pt reports he was seen at OSH yesterday and they cut the stitch and now pain has increased. Also c/o increased bloating for last 4-5 months. 24132-5Ccioodxgr department VdayKZ5496-60-20K45:07:04[facility] [address] department NoteTXT1.2.840.904517.1.13.104. 2.7.2.470452|[id number] ble for patient yhhj45196-1ZoolMCZAYXUCNC[address] 06987SGYPADSWYDODBQKJBKDATE1275 -09-12T16:07:041.2.840.597554.1 .72.3.15|1.2.840.560099.1.13.10 4.2.7.2.727879_[id number] 2023-04-19 12:45:57 7994-13-40O34:45:57Formatting [facility] of this note might be different RN from the original.Gerber Patton Alba Walters is a 23 year old male to ED for abd pain. Pt reports hx of ex lap approx 3 years ago with a stitch that was never removed, pt reports unhealing wound with stitch sticking out. Pt reports he was seen at OSH yesterday and they cut the stitch and now pain has increased. 80365-0Zpyoqgxof department Triage hnjcLK4652-71-46G74:48:15[facility] [address] department Triage noteTXT1.2.840.172901.1.13.104. 2.7.2.265947|[id number] ble for patient fzuf24519-2Jufkzlndt department [id number] L [place] [address] 40561PZUICVYOVONUEVFDECOBKJ9217 -09-12T12:48:151.2.840.831313.1 .72.3.15|1.2.840.976867.1.13.10 4.2.7.2.727879_[id number] 2023-04-19 12:31:00 8515-69-95L09:31:00Formatting [facility] of this note might be different from [...] as needed.CLINICAL IMPRESSION:Abdominal painDISPO: DischargeCONDITION: Taylor Serna MDEmerst. [facility]ern[facility] Medicine Yara Serna MD04/19/23 1839 34974-8Fhezmrlwb Emergency department VihcJT6185-32-46V90:39:55Physic yoselyn Emergency department NoteTXT1.2.840.468411.1.13.104. 2.7.2.829954|[id number] [facility] for patient kkzm60742-5Ojzravbeb department Note[address] ImbeKpotgjcrxXrtrcusqnNAEJ61317 74249JVHWPFRYLOHSRFOETMRBAK2408 -09-12T18:39:551.2.840.096645.1 .72.3.15|1.2.840.137142.1.13.10 4.2.7.2.727879_[id number]"
--- NOTE | 2023-07-12 18:52 | ER ---
Nurse's Notes [facility] Name: Gerber Willis Jr Age: 23 yrs Sex: Male : 2000 Arrival Date: 07/12/2023 Time: 18:35 Bed 11 Private MD: Diagnosis: Abscess recheck, wound recheck Presentation: 07/12 18:41 Chief complaint: Patient states: was seen here 2 days ago and had an abscess lanced. Pt cm10 states that he is here today because he needs to have the packing removed from it. Coronavirus screen: Vaccine status: Patient reports being unvaccinated. Client denies travel out of the [place] in the last 14 days. Ebola Screen: Patient denies travel to an Ebola-affected area in the 21 days before illness onset. No symptoms or risks identified at this time. Initial Sepsis Screen: Does the patient meet any 2 criteria? No. Patient's initial sepsis screen is negative. Does the patient have a suspected source of infection? No. Patient's initial sepsis screen is negative. Risk Assessment: Do you want to hurt yourself or someone else? Patient reports no desire to harm self or others. Onset of symptoms was July 12, 2023. 18:41 Method Of Arrival: Ambulatory cm10 18:41 Acuity: MORIS 5 mb9 Historical: - Allergies: 18:40 Aspirin; cm10 18:40 tramadol; cm10 - PMHx: 18:40 ADD/ADHD; Anxiety; Bipolar disorder; Depression; cm10 - Immunization history:: Adult Immunizations unknown. - Social history:: Smoking status: Patient reports the use of cigarette tobacco products, denies chronic smoking, but will smoke occasionally. Screenin:52 [facility] ED Fall Risk Assessment (Adult) History of falling in the last 3 months, mb9 including since admission No falls in past 3 months (0 pts) Confusion or Disorientation No (0 pts) Intoxicated or Sedated No (0 pts) Impaired Gait No (0 pts) Mobility Assist Device Used No (0 pt) Altered Elimination No (0 pt) Score/Fall Risk Level 0 - 2 = Low Risk Oriented to surroundings, Maintained a safe environment, Educated pt \T\ family on fall prevention, incl call for assistance when getting out of bed. Abuse screen: Denies threats or abuse. Nutritional screening: No deficits noted. Tuberculosis screening: No symptoms or risk factors identified. Assessment: 18:50 General: Appears in no apparent distress. Behavior is calm, cooperative, appropriate mb9 for age. Pain: Denies pain. Neuro: Potter Agitation-Sedation Scale (RASS): 0 - Alert and Calm Level of Consciousness is awake, alert, obeys commands, Oriented to person, place, time, situation, Appropriate for age. Cardiovascular: Patient's skin is warm and dry. Respiratory: Airway is patent Respiratory effort is even, unlabored, Respiratory pattern is regular, symmetrical. GI: No signs and/or symptoms were reported involving the gastrointestinal system. : No signs and/or symptoms were reported regarding the genitourinary system. EENT: No signs and/or symptoms were reported regarding the EENT system. Derm: Abscess located on buttocks. Musculoskeletal: Range of motion: intact in all extremities. Vital Signs: 18:41 BP 162 / 97; Pulse 102; Resp 18; Temp 97.1; Pulse Ox 98% on R/A; Weight 99.79 kg; cm10 Height 6 ft. 0 in. ; Pain 5/10; 18:41 Body Mass Index 29.84 (99.79 kg, 182.88 cm) cm10 18:41 Pain Scale: Adult cm10 ED Course: 18:35 Patient arrived in ED. rg4 18:36 Mel Cummings MD is Attending Physician. sp3 18:42 Triage completed. cm10 18:42 Arm band placed on Patient placed in an exam room, on a stretcher. cm10 18:48 Spring Nagy, [place] is Primary Nurse. mb9 18:51 Placed in gown. Bed in low position. Call light in reach. Side rails up X 1. Client mb9 placed on continuous cardiac and pulse oximetry monitoring. NIBP monitoring applied. 18:52 No provider procedures requiring assistance completed. mb9 18:53 Patient did not have IV access during this emergency room visit. mb9 Administered Medications: No medications were administered Medication: 18:53 VIS not applicable for this client. mb9 Outcome: 18:52 Discharge ordered by . sp3 18:54 Discharged to home ambulatory, mb9 18:54 Condition: stable 18:54 Discharge instructions given to patient, Instructed on discharge instructions, follow up and referral plans. Demonstrated understanding of instructions, follow-up care, 18:58 Patient left the ED. mb9 Signatures: Cici Vickers rg4 Mel Cummings MD MD sp3 Spring Nagy RN RN mb9 Nkechi Mccallum RN RN cm10 Corrections: (The following items were deleted from the chart) 18:53 18:41 Acuity: MORIS 4 cm10 mb9
--- NOTE | 2023-07-12 18:52 | EDPHYS ---
Physician Documentation [facility] Name: Gerber Willis Jr Age: 23 yrs Sex: Male : 2000 Arrival Date: 07/12/2023 Time: 18:35 Bed 11 Private MD: ED Physician Mel Cummings HPI: 07/12 18:50 This 23 yrs old Male presents to ER via Ambulatory with complaints of Abscess Recheck. sp3 18:50 23-year-old male history of bipolar disease and recent pilonidal cyst abscess drained 2 sp3 days ago here at this facility now presents again for wound recheck and to ensure that his packing was removed/came out. He denies any other symptoms including fever, redness or Pain in the genital area. He is taking his antibiotics as prescribed. ROS otherwise negative.. Historical: - Allergies: 18:40 Aspirin; cm10 18:40 tramadol; cm10 - PMHx: 18:40 ADD/ADHD; Anxiety; Bipolar disorder; Depression; cm10 - Immunization history:: Adult Immunizations unknown. - Social history:: Smoking status: Patient reports the use of cigarette tobacco products, denies chronic smoking, but will smoke occasionally. ROS: 18:50 Constitutional: Negative for fever, chills, and weight loss, Eyes: Negative for injury, sp3 pain, redness, and discharge, Neck: Negative for injury, pain, and swelling, Cardiovascular: Negative for chest pain, palpitations, and edema, Respiratory: Negative for shortness of breath, cough, wheezing, and pleuritic chest pain, Abdomen/GI: Negative for abdominal pain, nausea, vomiting, diarrhea, and constipation, Back: Negative for injury and pain, Neuro: Negative for headache, weakness, numbness, tingling, and seizure, Psych: Negative for depression, anxiety, suicide ideation, homicidal ideation, and hallucinations, Allergy/Immunology: Negative for hives, rash, and allergies, Endocrine: Negative for neck swelling, polydipsia, polyuria, polyphagia, and marked weight changes, Hematologic/Lymphatic: Negative for swollen nodes, abnormal bleeding, and unusual bruising, 18:50 All other systems are negative, Exam: 18:50 Constitutional: This is a well developed, well nourished patient who is awake, alert, sp3 and in no acute distress. Back: No spinal tenderness. No costovertebral tenderness. Full range of motion. 18:50 Back: Abscess location without packing noted. No erythema noted. , Vital Signs: 18:41 BP 162 / 97; Pulse 102; Resp 18; Temp 97.1; Pulse Ox 98% on R/A; Weight 99.79 kg; cm10 Height 6 ft. 0 in. ; Pain 5/10; 18:41 Body Mass Index 29.84 (99.79 kg, 182.88 cm) cm10 18:41 Pain Scale: Adult cm10 MDM: 18:47 Patient medically screened. sp3 18:51 Data reviewed: vital signs, old medical records. ED course: We will discharge patient sp3 home at this time. No further intervention indicated.. Administered Medications: No medications were administered Disposition Summary: 07/12/23 18:52 Discharge Ordered Notes: Location: Home sp3 Condition: Stable sp3 Diagnosis - Abscess recheck, wound recheck sp3 Followup: sp3 - With: Private Physician - When: Upon discharge from the Emergency Department - Reason: Continuance of care Discharge Instructions: - Discharge Summary Sheet sp3 - Wound Care, Adult sp3 Forms: - Medication Reconciliation Form sp3 - Thank You Letter sp3 - Antibiotic Education sp3 - Prescription Opioid Use sp3 - Patient Portal Instructions sp3 - Leadership Thank You Letter sp3 Signatures: Mel Cummings MD MD sp3 Nkechi Mccallum RN RN cm10
[2023-07-12 19:34] VITALS: BP 162/97; TEMP 97.1; O2SAT 98
== END 2023-07-12 18:58 | disposition home or self-care (01) ==
LOC: ER 18:35
DX: Z48.01 Encounter for change or removal of surgical wound dressing (principal)
CPT/HCPCS: 99283

== ENCOUNTER → 2023-08-15 | Emergency (ER) | payer OTHER ==
[~2023-08-15] MED LIST: KETOROLAC 30 MG/ML INJ ONE
--- OUTSIDE RECORDS SUMMARY | 2023-08-15 17:57 | XMS REPORT | Continuity of Care Document ---
Author Name Unknown Address [address] [place] [address] [facility] Address [address] [place] [address] Care Team Providers Care Environmental Restoration Planner Name Role Phone FER ANDREA Attending Clinician Juan Antonio Maldonado MD Attending Clinician Doctor Unassigned, [place] Attending Clinician U latisha Encounters Start Date/Time End Date/Time Encounter Type Admission Type Attending Clinicians Care Facility Care Department Encounter ID Source 2023-04-18 17:31:00 2023-04-18 19:39:00 Emergency E FER ANDREA [facility] [id number] 02 [facility] 2020-06-28 03:18:00 2020-06-28 03:41:00 Emergency Juan Antonio [facility] [id number] 2020-06-28 00:00:00 2020-06-28 00:00:00 Orders Only Doctor Unassigned, [place] [facility] [id number] 2019-10-28 03:52:43 2019-10-28 04:10:00 Emergency Juan Antonio Mills [facility] [id number]
[2023-08-15 19:05] LABS: SARS-COV-2 RT PCR NEGATIVE (NEGATIVE)
--- NOTE | 2023-08-15 20:20 | EDPHYS ---
Physician Documentation [facility] Name: Gerber Willis Jr Age: 23 yrs Sex: Male : 2000 Arrival Date: 08/15/2023 Time: 17:53 Bed DIS3 Private MD: ED Physician Saige Mars HPI: 08/15 18:14 This 23 yrs old Male presents to ER via Ambulatory with complaints of Cough, sb4 Congestion, Sore Throat. 18:14 The patient or guardian reports cough, flu symptoms. Onset: The symptoms/episode sb4 began/occurred this morning. Associated signs and symptoms: Pertinent positives: sore throat, Pertinent negatives: chest pain, diarrhea, ear ache, fever. The patient has not experienced similar symptoms in the past, but family has similar symptoms. The patient has not recently seen a physician. cough, stuffy nose, sore throat beginning this am. has not taken anything otc. states family was sick with URI last week. no fever, chest pain, sob, abd pain,n/v/d. Historical: - Allergies: 18:10 Aspirin; bp 18:10 tramadol; bp - PMHx: 18:10 ADD/ADHD; Anxiety; Bipolar disorder; Depression; bp - Immunization history:: Adult Immunizations. - Social history:: Smoking status: Patient reports the use of cigarette tobacco products, unknown amount. ROS: 18:14 Constitutional: Negative for fever, chills, and weight loss, sb4 18:14 ENT: Positive for sore throat, 18:14 Respiratory: Positive for cough, 18:14 All other systems are negative, Exam: 18:14 Constitutional: This is a well developed, well nourished patient who is awake, alert, sb4 and in no acute distress. Head/Face: Normocephalic, atraumatic. Eyes: Extra-ocular motions intact. Periorbital areas with no swelling, redness, or edema. ENT: Mucous membranes moist. Cardiovascular: Regular rate and rhythm with a normal S1 and S2. Respiratory: Lungs have equal breath sounds bilaterally, clear to auscultation and percussion. No rales, rhonchi or wheezes noted. No increased work of breathing, no retractions or nasal flaring. Abdomen/GI: Soft, non-tender, no distension. Skin: Warm, dry with normal turgor. Normal color with no rashes, no lesions, and no evidence of cellulitis. MS/ Extremity: Pulses equal, no cyanosis. Neurovascular intact. Full, normal range of motion. Neuro: Awake and alert, GCS 15, oriented to person, place, time, and situation. Motor strength 5/5 in all extremities. Sensory grossly intact. Vital Signs: 18:07 BP 139 / 87; Pulse 100; Resp 18; Temp 98.8; Pulse Ox 99% ; bp 20:35 BP 112 / 75; Pulse 97; Resp 18; Pulse Ox 96% ; vk MDM: 18:00 Patient medically screened. sb4 18:14 Differential Diagnosis: Bronchitis Influenza Upper Respiratory Infection Pharyngitis sb4 Viral Syndrome Pneumonia. 19:03 Data reviewed: nurses notes. gb1 08/15 18:11 Order name: COVID-19/FLU A+B; Complete Time: 19:05 sb4 08/15 18:11 Order name: Strep; Complete Time: 19:05 sb4 08/15 18:43 Order name: Throat Culture EDMS 08/15 18:11 Order name: Chest Pa And Lat (2 Views) XRAY sb4 Administered Medications: 20:39 Drug: Ketorolac IM 30 mg IM once Route: IM; Site: left deltoid; tm6 Disposition: 19:03 Co-signature as Attending Physician, Saige Mars MD I agree with the assessment and gb1 plan of care. I reviewed the patient's care provided by the Advanced Practice Provider and agree with the diagnosis and treatment plan. Disposition Summary: 08/15/23 20:19 Discharge Ordered Notes: Location: Home sb4 Problem: new sb4 Symptoms: are unchanged sb4 Condition: Stable sb4 Diagnosis - Acute upper respiratory infection, unspecified sb4 Followup: sb4 - With: Emergency Department - When: As needed - Reason: Trouble breathing, Worsening of condition Discharge Instructions: - Discharge Summary Sheet sb4 - Upper Respiratory Infection, Adult, [id number] sb4 Forms: - Medication Reconciliation Form sb4 - Thank You Letter sb4 - Antibiotic Education sb4 - Prescription Opioid Use sb4 - Patient Portal Instructions sb4 - Leadership Thank You Letter sb4 Prescriptions: - Tessalon Perles 100 mg Oral Capsule - take 1 capsule ORAL route every 8 hours As needed; 15 capsule; Refills: 0, sb4 Product Selection Permitted - Medrol (Rob) 4 mg Oral Tablets, Dose Pack - take 1 tablet ORAL route as directed - follow package instructions; 1 packet; sb4 Refills: 0, Product Selection Permitted Signatures: Dispatcher [employer] Morris Johnson, RN RN Hailee Maya PA-C PA-C sb4 Saige Mars MD MD gb1 Renetta Gonzalez RN RN tm6
--- NOTE | 2023-08-15 20:20 | ER ---
Nurse's Notes [facility] Name: Gerber Willis Jr Age: 23 yrs Sex: Male : 2000 Arrival Date: 08/15/2023 Time: 17:53 Bed DIS3 Private MD: Diagnosis: Acute upper respiratory infection, unspecified Presentation: 08/15 18:07 Chief complaint: Patient states: FLU-LIKE S/S SINCE 0300. Coronavirus screen: bp congestion, cough unrelated to allergies. Ebola Screen: No symptoms or risks identified at this time. Initial Sepsis Screen: Does the patient meet any 2 criteria? No. Patient's initial sepsis screen is negative. Does the patient have a suspected source of infection? No. Patient's initial sepsis screen is negative. Risk Assessment: Do you want to hurt yourself or someone else?. Onset of symptoms was August 15, 2023 at 03:00. 18:07 Method Of Arrival: Ambulatory bp 18:07 Acuity: MORIS 4 bp Triage Assessment: 20:40 General: Appears in no apparent distress. Behavior is calm, cooperative. Neuro: Level tm6 of Consciousness is awake, alert, obeys commands, Oriented to person, place, time, situation. Historical: - Allergies: 18:10 Aspirin; bp 18:10 tramadol; bp - PMHx: 18:10 ADD/ADHD; Anxiety; Bipolar disorder; Depression; bp - Immunization history:: Adult Immunizations. - Social history:: Smoking status: Patient reports the use of cigarette tobacco products, unknown amount. Screenin:40 [facility] ED Fall Risk Assessment (Adult) History of falling in the last 3 months, tm6 including since admission No falls in past 3 months (0 pts). Abuse screen: Denies threats or abuse. Denies injuries from another. Nutritional screening: No deficits noted. Tuberculosis screening: No symptoms or risk factors identified. Assessment: 20:39 Pain: Complains of pain in neck Quality of pain is described as itchy throat. tm6 Cardiovascular: Capillary refill < 3 seconds Patient's skin is warm and dry. Respiratory: Airway is patent Respiratory effort is even, unlabored, Respiratory pattern is regular, symmetrical. Vital Signs: 18:07 BP 139 / 87; Pulse 100; Resp 18; Temp 98.8; Pulse Ox 99% ; bp 20:35 BP 112 / 75; Pulse 97; Resp 18; Pulse Ox 96% ; vk ED Course: 17:55 Patient arrived in ED. rg4 18:00 Hailee Bowen [facility]-C [facility]. sb4 18:00 Saige Mars MD is Attending Physician. sb4 18:09 Triage completed. bp 18:10 Arm band placed on. bp 18:21 Strep Sent. bc6 18:21 COVID-19/FLU A+B Sent. bc6 19:17 Chest Pa And Lat (2 Views) XRAY In Process Unspecified. EDMS 20:40 Patient has correct armband on for positive identification. Provided Education on: tm6 medications. 20:40 No provider procedures requiring assistance completed. Patient did not have IV access tm6 during this emergency room visit. Administered Medications: 20:39 Drug: Ketorolac IM 30 mg IM once Route: IM; Site: left deltoid; tm6 Medication: 20:40 VIS not applicable for this client. tm6 Outcome: 20:19 Discharge ordered by . sb4 20:41 Discharged to home ambulatory, tm6 20:41 Condition: stable 20:41 Instructed on discharge instructions, medication usage, Demonstrated understanding of instructions, follow-up care, medications, Prescriptions given X 2, 20:42 Patient left the ED. tm6 Signatures: Dispatcher [employer] [place] Cici Vickers rg4 Morrsi Dejesus, RN RN Hailee Maya PA-C PA-C sb4 Elida Hadley bc6 Renetta Gonzalez RN RN tm6 Shannan Woodson
--- NOTE | 2023-08-15 21:13 | RAD REPORT ---
EXAM DESCRIPTION: RAD - Chest Pa And Lat (2 Views) - 08/15/2023 7:15 pm CLINICAL HISTORY: Chest pain;Congestion;Cough COMPARISON: No comparisons TECHNIQUE: PA and lateral views of the chest were obtained. FINDINGS: The lungs are clear. Heart size is normal and central vasculature is within normal limits. No pleural effusion or pneumothorax seen. No acute bony finding noted. IMPRESSION: No acute cardiopulmonary process.
[2023-08-16 00:32] VITALS: BP 112/75; TEMP 98.8; O2SAT 96
== END ==
LOC: ER 17:53
DX: J06.9 Acute upper respiratory infection, unspecified (principal); Z11.52 Encounter for screening for COVID-19; Z72.0 Tobacco use; Z88.5 Allergy status to narcotic agent; Z88.6 Allergy status to analgesic agent
CPT/HCPCS: 87070; 87081; 0240U; 71046; 96372; 99284

== ENCOUNTER 2023-12-17 22:03 | Emergency (ER) | payer OTHER ==
--- OUTSIDE RECORDS SUMMARY | 2023-12-17 22:08 | XMS REPORT | Continuity of Care Document ---
Author Name Unknown Address [address] [place] [address] [facility] Address [address] [place] [address] Care Team Providers Care Revenue Cycle Manager Name Role Phone PCP, PATIENT DOES NOT HAVE A Primary Care Physic yoselyn Unavailable JOE LYNN Attending Clinician Unavailable Joe Lynn MD Attending Clinician [phone] YARA SERNA Attending Clinician Yara Middleton MD Attending Clinician [phone] FER ANDREA Attending Clinician Traci Maldonado MD Attending Clinician Doctor Unassigned, [place] Attending Clinician U TRACI Garibay Attending Clinician Unavailable YARA SERNA Admitting Clinician Unavailabl e Payers Payer Name Policy Type Policy Number Effective Date Expirati on Date Source [employer] MEDICARE OUT OF NETWORK [id number] 2021 00:00:00 2023 00:00:00 MEDICAID OF [place] [id number] 2023 00:00:00 MEDICARE PART A \\T\\ B [id number] 2018 00:00:00 Problems Condition Name Condition Details Condition Category Status Onset Date Resolution Date Last Treatment Date Treating Clinician Comments Source No known active problems No known active problems Disease [facility] Allergies, Adverse Reactions, Alerts Allergy Name Allergy Type Status Severity Reaction(s) Onset Date Inactive Date Treating Clinician Comments Source ASPIRIN (BULK) DRUG Active Swelling 10-27 00:00: 00 [facility] TRAMADOL DRUG INGREDI Active Other-Cmnt 10-27 00:00: 00 [facility] Aspirin (Bulk) Propensi ty to adverse reaction s Active Swelling 10-27 00:00: 00 [facility] Tramadol Propensi ty to adverse reaction s Active Other - See comments 10-27 00:00: 00 Shakes [facility] Social History Social Habit Start Date Stop Date Quantity Comments Source Exposure to SARS-CoV-2 (event) Not sure [facility] of Social function 2023-04-19 00:00:00 2023-04-19 00:00:00 [facility] Alcohol intake 2023-04-19 00:00:00 2023-04-19 00:00:00 0 /d [facility] Sex Assigned At 1998 00:00:00 2000 00:00:00 [facility] Smoking Status Start Date Stop Date Source Never smoked tobacco [facility] Medications Ordered Medication Name Filled Medication Name Start Date Stop Date Current Medication? Ordering Clinician Indication Dosage Frequency Signature (SIG) Comments Components Source ondansetron 4 mg disintegrat ing tablet 2022-08 00:00: 00 Yes [id number] 4mg Take 1 tablet by mouth every 8 (eight) hours as needed for Nausea and Vomiting (N/V). [facility] iohexol (OMNIPAQUE 350 BULK-100 mL) injection 80 mL 04-19 22:15: 00 04-19 21:45 :00 No [id number] 80mL 80 mL, Intravenou s, ONCE, 1 dose, On Tue04/19/23 at 1715, Routine [facility] benzonatate 200 mg capsule 2019-08 00:00: 00 Yes [id number] 200mg Take 1 capsule by mouth 3 (three) times daily as needed for Cough. [facility] promethazin e-codeine 6.25-10 mg/5 mL syrup 10-06 00:00: 00 Yes [id number] 5mL Take 5 mL by mouth 4 (four) times daily as needed for Cough. [facility] sod chlor-bicar b-squeez bottle (NEILMED SINUS RINSE COMPLETE) [facility] 10-06 00:00: 00 Yes [id number] 1{bottl e} Use 1 Bottle in each nostril 2 (two) times daily. Use in hot shower 1 hour before bedtime [facility] sod chlor-bicar b-squeez bottle (NEILMED SINUS RINSE COMPLETE) [facility] 10-06 00:00: 00 Yes [id number] 1{bottl e} Use 1 Bottle in each nostril 2 (two) times daily. Use in hot shower 1 hour before bedtime [facility] BROMFED DM 2-30-10 mg/5 mL syrup 00:00: 00 Yes 7.5mL Take 7.5 mL by mouth 4 (four) times daily as needed for Congestion /Allergies . [facility] paliperidon e (INVEGA) 3 mg 24 hr tablet 04-23 14:30: 57 Yes 3mg Take 3 mg by mouth daily. [facility] benztropine (COGENTIN) 1 mg tablet 04-23 14:30: 57 Yes 1mg Take 1 mg by mouth 2 (two) times daily. [facility] chlorproMAZ INE (THORAZINE) 100 mg tablet 04-23 14:30: 57 Yes 100mg Take 100 mg by mouth 3 (three) times daily. [facility] Guanfacine (INTUNIV) 4 mg Tb24 04-23 14:30: 57 Yes Take by mouth. [facility] methylpheni date (CONCERTA) 36 mg 24 hr tablet 04-23 14:30: 56 Yes 36mg Take 36 mg by mouth every morning. [facility] paliperidon e (INVEGA) 3 mg 24 hr tablet 04-23 09:30: 57 Yes 3mg Take 3 mg by mouth daily. [facility] benztropine (COGENTIN) 1 mg tablet 04-23 09:30: 57 Yes 1mg Take 1 mg by mouth 2 (two) times daily. [facility] chlorproMAZ INE (THORAZINE) 100 mg tablet 04-23 09:30: 57 Yes 100mg Take 100 mg by mouth 3 (three) times daily. [facility] Guanfacine (INTUNIV) 4 mg Tb24 04-23 09:30: 57 Yes Take by mouth. [facility] methylpheni date (CONCERTA) 36 mg 24 hr tablet 04-23 09:30: 56 Yes 36mg Take 36 mg by mouth every morning. [facility] CIPRODEX 0.3-0.1 % OTIC DRPS - 00:00: 00 Yes 6 drops to infetced ear bid for 7 days [facility] Immunizations Ordered Immunization Name Filled Immunization Name Date Status Comments Source Td 2016-10-27 00:00:00 Completed [facility] Td 2016-10-27 00:00:00 Completed [facility] TD, NOS 2016-10-27 00:00:00 Completed [facility] TD, NOS 2016-10-27 00:00:00 Completed [facility] Td 2016-10-27 00:00:00 Completed [facility] HPV9 2015-10-27 00:00:00 Completed [facility] HPV9 2015-10-27 00:00:00 Completed [facility] HPV9 2015-10-27 00:00:00 Completed [facility] HPV9 2015-10-27 00:00:00 Completed [facility] HPV9 2015-10-27 00:00:00 Completed [facility] HPV9 2015-06-25 00:00:00 Completed [facility] HPV9 2015-06-25 00:00:00 Completed [facility] HPV9 2015-06-25 00:00:00 Completed [facility] HPV9 2015-06-25 00:00:00 Completed [facility] HPV9 2015-06-25 00:00:00 Completed [facility] HPV9 2015-04-23 00:00:00 Completed [facility] Meningococcal Oligosaccharide (groups A, C, Y and W-135) conjugate vaccine (MCV4O) 2015-04-23 00:00:00 Completed [facility] 2015-04-23 00:00:00 Completed [facility] Meningococcal Oligosaccharide (groups A, C, Y and W-135) conjugate vaccine (MCV4O) 2015-04-23 00:00:00 Completed [facility] HPV9 2015-04-23 00:00:00 Completed [facility] Meningococcal Oligosaccharide (groups A, C, Y and W-135) conjugate vaccine (MCV4O) 2015-04-23 00:00:00 Completed [facility] HPV9 2015-04-23 00:00:00 Completed [facility] Meningococcal Oligosaccharide (groups A, C, Y and W-135) conjugate vaccine (MCV4O) 2015-04-23 00:00:00 Completed [facility] HPV9 2015-04-23 00:00:00 Completed [facility] Meningococcal Oligosaccharide (groups A, C, Y and W-135) conjugate vaccine (MCV4O) 2015-04-23 00:00:00 Completed [facility] HEPATITIS A 2011-03-12 00:00:00 Completed [facility] Meningococcal Oligosaccharide (groups A, C, Y and W-135) conjugate vaccine (MCV4O) 2011-03-12 00:00:00 Completed [facility] TDAP 2011-03-12 00:00:00 Completed [facility] Varicella (varivax)(chicken pox) 2011-03-12 00:00:00 Completed [facility] HEPATITIS A 2011-03-12 00:00:00 Completed [facility] Meningococcal Oligosaccharide (groups A, C, Y and W-135) conjugate vaccine (MCV4O) 2011-03-12 00:00:00 Completed [facility] TDAP 2011-03-12 00:00:00 Completed [facility] Varicella (varivax)(chicken pox) 2011-03-12 00:00:00 Completed [facility] HEPATITIS A 2011-03-12 00:00:00 Completed [facility] HEPATITIS A 2011-03-12 00:00:00 Completed [facility] Meningococcal Oligosaccharide (groups A, C, Y and W-135) conjugate vaccine (MCV4O) 2011-03-12 00:00:00 Completed [facility] TDAP 2011-03-12 00:00:00 Completed [facility] Varicella (varivax)(chicken pox) 2011-03-12 00:00:00 Completed [facility] Meningococcal Oligosaccharide (groups A, C, Y and W-135) conjugate vaccine (MCV4O) 2011-03-12 00:00:00 Completed [facility] Tdap 2011-03-12 00:00:00 Completed [facility] Varicella (varivax)(chicken pox) 2011-03-12 00:00:00 Completed [facility] HEPATITIS A 2011-03-12 00:00:00 Completed [facility] Meningococcal Oligosaccharide (groups A, C, Y and W-135) conjugate vaccine (MCV4O) 2011-03-12 00:00:00 Completed [facility] TDAP 2011-03-12 00:00:00 Completed [facility] Varicella (varivax)(chicken pox) 2011-03-12 00:00:00 Completed [facility] Pneumococcal 7 Conjugate, PCV7 (Prevnar7) 2005-12-28 00:00:00 Completed [facility] HEPATITIS A 2005-12-28 00:00:00 Completed [facility] MMR 2005-12-28 00:00:00 Completed [facility] Pediarix (dtap/hep B/ipv) 2005-12-28 00:00:00 Completed [facility] Pneumococcal 7 Conjugate, PCV7 (Prevnar7) 2005-12-28 00:00:00 Completed [facility] HEPATITIS A 2005-12-28 00:00:00 Completed [facility] MMR 2005-12-28 00:00:00 Completed [facility] Pediarix (dtap/hep B/ipv) 2005-12-28 00:00:00 Completed [facility] Pneumococcal 7 Conjugate, PCV7 (Prevnar7) 2005-12-28 00:00:00 Completed [facility] HEPATITIS A 2005-12-28 00:00:00 Completed [facility] HEPATITIS A 2005-12-28 00:00:00 Completed [facility] MMR 2005-12-28 00:00:00 Completed [facility] Pediarix (dtap/hep B/ipv) 2005-12-28 00:00:00 Completed [facility] Pneumococcal 7 Conjugate, PCV7 (Prevnar7) 2005-12-28 00:00:00 Completed [facility] MMR 2005-12-28 00:00:00 Completed [facility] Pediarix (dtap/hep B/ipv) 2005-12-28 00:00:00 Completed [facility] Pneumococcal 7 Conjugate, PCV7 (Prevnar7) 2005-12-28 00:00:00 Completed [facility] HEPATITIS A 2005-12-28 00:00:00 Completed [facility] MMR 2005-12-28 00:00:00 Completed [facility] Pediarix (dtap/hep B/ipv) 2005-12-28 00:00:00 Completed [facility] Polio (IPV/OPV) 2003-04-11 00:00:00 Completed [facility] Polio (IPV/OPV) 2003-04-11 00:00:00 Completed [facility] Polio (IPV/OPV) 2003-04-11 00:00:00 Completed [facility] Polio (IPV/OPV) 2003-04-11 00:00:00 Completed [facility] Polio (IPV/OPV) 2003-04-11 00:00:00 Completed [facility] DTAP 2003-03-21 00:00:00 Completed [facility] MMR 2003-03-21 00:00:00 Completed [facility] DTAP 2003-03-21 00:00:00 Completed [facility] DTAP 2003-03-21 00:00:00 Completed [facility] MMR 2003-03-21 00:00:00 Completed [facility] DTAP 2003-03-21 00:00:00 Completed [facility] MMR 2003-03-21 00:00:00 Completed [facility] MMR 2003-03-21 00:00:00 Completed [facility] DTAP 2003-03-21 00:00:00 Completed [facility] MMR 2003-03-21 00:00:00 Completed [facility] Pneumococcal 7 Conjugate, PCV7 (Prevnar7) 2000-12-29 00:00:00 Completed [facility] Pneumococcal 7 Conjugate, PCV7 (Prevnar7) 2000-12-29 00:00:00 Completed [facility] Pneumococcal 7 Conjugate, PCV7 (Prevnar7) 2000-12-29 00:00:00 Completed [facility] Pneumococcal 7 Conjugate, PCV7 (Prevnar7) 2000-12-29 00:00:00 Completed [facility] Pneumococcal 7 Conjugate, PCV7 (Prevnar7) 2000-12-29 00:00:00 Completed [facility] DTAP 1999-04-27 00:00:00 Completed [facility] HIB 4 Dose Schedule 1999-04-27 00:00:00 Completed [facility] MMR 1999-04-27 00:00:00 Completed [facility] Polio (IPV/OPV) 1999-04-27 00:00:00 Completed [facility] Varicella (varivax)(chicken pox) 1999-04-27 00:00:00 Completed [facility] DTAP 1999-04-27 00:00:00 Completed [facility] DTAP 1999-04-27 00:00:00 Completed [facility] HIB 4 Dose Schedule 1999-04-27 00:00:00 Completed [facility] MMR 1999-04-27 00:00:00 Completed [facility] Polio (IPV/OPV) 1999-04-27 00:00:00 Completed [facility] Varicella (varivax)(chicken pox) 1999-04-27 00:00:00 Completed [facility] HIB 4 Dose Schedule 1999-04-27 00:00:00 Completed [facility] DTAP 1999-04-27 00:00:00 Completed [facility] HIB 4 Dose Schedule 1999-04-27 00:00:00 Completed [facility] MMR 1999-04-27 00:00:00 Completed [facility] Polio (IPV/OPV) 1999-04-27 00:00:00 Completed [facility] Varicella (varivax)(chicken pox) 1999-04-27 00:00:00 Completed [facility] MMR 1999-04-27 00:00:00 Completed [facility] Polio (IPV/OPV) 1999-04-27 00:00:00 Completed [facility] Varicella (varivax)(chicken pox) 1999-04-27 00:00:00 Completed [facility] DTAP 1999-04-27 00:00:00 Completed [facility] HIB 4 Dose Schedule 1999-04-27 00:00:00 Completed [facility] MMR 1999-04-27 00:00:00 Completed [facility] Polio (IPV/OPV) 1999-04-27 00:00:00 Completed [facility] Varicella (varivax)(chicken pox) 1999-04-27 00:00:00 Completed [facility] Hep B, Adol or Pedi Dosage 1999-03-14 00:00:00 Completed [facility] Hep B, Adol or Pedi Dosage 1999-03-14 00:00:00 Completed [facility] Hep B, Adol or Pedi Dosage 1999-03-14 00:00:00 Completed [facility] Hep B, Adol or Pedi Dosage 1999-03-14 00:00:00 Completed [facility] Hep B, Adol or Pedi Dosage 1999-03-14 00:00:00 Completed [facility] DTAP 1998 00:00:00 Completed [facility] HIB 4 Dose Schedule 1998 00:00:00 Completed [facility] Polio (IPV/OPV) 1998 00:00:00 Completed [facility] DTAP 1998 00:00:00 Completed [facility] DTAP 1998 00:00:00 Completed [facility] HIB 4 Dose Schedule 1998 00:00:00 Completed [facility] Polio (IPV/OPV) 1998 00:00:00 Completed [facility] HIB 4 Dose Schedule 1998 00:00:00 Completed [facility] DTAP 1998 00:00:00 Completed [facility] HIB 4 Dose Schedule 1998 00:00:00 Completed [facility] Polio (IPV/OPV) 1998 00:00:00 Completed [facility] Polio (IPV/OPV) 1998 00:00:00 Completed [facility] DTAP 1998 00:00:00 Completed [facility] HIB 4 Dose Schedule 1998 00:00:00 Completed [facility] Polio (IPV/OPV) 1998 00:00:00 Completed [facility] DTAP 1998 00:00:00 Completed [facility] HIB 4 Dose Schedule 1998 00:00:00 Completed [facility] Hep B, Adol or Pedi Dosage 1998 00:00:00 Completed [facility] Polio (IPV/OPV) 1998 00:00:00 Completed [facility] DTAP 1998 00:00:00 Completed [facility] DTAP 1998 00:00:00 Completed [facility] HIB 4 Dose Schedule 1998 00:00:00 Completed [facility] Hep B, Adol or Pedi Dosage 1998 00:00:00 Completed [facility] Polio (IPV/OPV) 1998 00:00:00 Completed [facility] HIB 4 Dose Schedule 1998 00:00:00 Completed [facility] DTAP 1998 00:00:00 Completed [facility] HIB 4 Dose Schedule 1998 00:00:00 Completed [facility] Hep B, Adol or Pedi Dosage 1998 00:00:00 Completed [facility] Polio (IPV/OPV) 1998 00:00:00 Completed [facility] Hep B, Adol or Pedi Dosage 1998 00:00:00 Completed [facility] Polio (IPV/OPV) 1998 00:00:00 Completed [facility] DTAP 1998 00:00:00 Completed [facility] HIB 4 Dose Schedule 1998 00:00:00 Completed [facility] Hep B, Adol or Pedi Dosage 1998 00:00:00 Completed [facility] Polio (IPV/OPV) 1998 00:00:00 Completed [facility] DTAP 1998 00:00:00 Completed [facility] HIB 4 Dose Schedule 1998 00:00:00 Completed [facility] Hep B, Adol or Pedi Dosage 1998 00:00:00 Completed [facility] Polio (IPV/OPV) 1998 00:00:00 Completed [facility] DTAP 1998 00:00:00 Completed [facility] DTAP 1998 00:00:00 Completed [facility] HIB 4 Dose Schedule 1998 00:00:00 Completed [facility] Hep B, Adol or Pedi Dosage 1998 00:00:00 Completed [facility] HIB 4 Dose Schedule 1998 00:00:00 Completed [facility] Polio (IPV/OPV) 1998 00:00:00 Completed [facility] DTAP 1998 00:00:00 Completed [facility] HIB 4 Dose Schedule 1998 00:00:00 Completed [facility] Hep B, Adol or Pedi Dosage 1998 00:00:00 Completed [facility] Polio (IPV/OPV) 1998 00:00:00 Completed [facility] Hep B, Adol or Pedi Dosage 1998 00:00:00 Completed [facility] Polio (IPV/OPV) 1998 00:00:00 Completed [facility] DTAP 1998 00:00:00 Completed [facility] HIB 4 Dose Schedule 1998 00:00:00 Completed [facility] Hep B, Adol or Pedi Dosage 1998 00:00:00 Completed [facility] Polio (IPV/OPV) 1998 00:00:00 Completed [facility] Hep B, Adol or Pedi Dosage 1998 00:00:00 Completed [facility] Hep B, Adol or Pedi Dosage 1998 00:00:00 Completed [facility] Hep B, Adol or Pedi Dosage 1998 00:00:00 Completed [facility] Hep B, Adol or Pedi Dosage 1998 00:00:00 Completed [facility] Hep B, Adol or Pedi Dosage 1998 00:00:00 Completed [facility] DTAP Unknown Completed [facility] DTAP Unknown Completed [facility] DTAP Unknown Completed [facility] DTAP Unknown Completed [facility] DTAP Unknown Completed [facility] HIB 4 Dose Schedule Unknown Completed [facility] HIB 4 Dose Schedule Unknown Completed [facility] HIB 4 Dose Schedule Unknown Completed [facility] HIB 4 Dose Schedule Unknown Completed [facility] HEPATITIS A Unknown Completed [facility] HEPATITIS A Unknown Completed [facility] Hep B, Adol or Pedi Dosage Unknown Completed [facility] Hep B, Adol or Pedi Dosage Unknown Completed [facility] Hep B, Adol or Pedi Dosage Unknown Completed [facility] Hep B, Adol or Pedi Dosage Unknown Completed [facility] Meningococcal Oligosaccharide (groups A, C, Y and W-135) conjugate vaccine (MCV4O) Unknown [facility] M[facility] Unknown Completed [facility] MMR Unknown Completed [facility] MMR Unknown Completed [facility] Pediarix (dtap/hep B/ipv) Unknown Completed [facility] Polio (IPV/OPV) Unknown Completed [facility] Polio (IPV/OPV) Unknown Completed [facility] Polio (IPV/OPV) Unknown Completed [facility] Polio (IPV/OPV) Unknown Completed [facility] Polio (IPV/OPV) Unknown Completed [facility] TDAP Unknown Completed [facility] Varicella (varivax)(chicken pox) Unknown Completed [facility] Varicella (varivax)(chicken pox) Unknown Completed [facility] Pneumococcal 7 Conjugate, PCV7 (Prevnar7) Unknown Completed [facility] Pneumococcal 7 Conjugate, PCV7 (Prevnar7) Unknown Completed [facility] HPV9 Unknown Completed [facility] Meningococcal Oligosaccharide (groups A, C, Y and W-135) conjugate vaccine (MCV4O) Unknown [facility] HPV9 Unknown Completed [facility] HPV9 Unknown Completed [facility] TD, NOS Unknown [facility] [facility] Vital Signs Vital Name Observation Time Observation Value Comments S ource Systolic blood pressure 2023-08-07 21:31:00 141 mm[facility]Hg[facility] Diastolic blood pressure 2023-08-07 21:31:00 89 mm[Hg] [facility] Heart rate 2023-08-07 21:31:00 98 /min [facility] Body temperature 2023-08-07 21:31:00 36.89 [facility] Respiratory rate 2023-08-07 21:31:00 18 /min [facility] Body height 2023-08-07 21:31:[address] [facility] Body weight 2023-08-07 21:31:[address] [facility] BMI 2023-08-07 21:31:00 32.55 kg/m2 [facility] Oxygen saturation in Arterial blood by Pulse oximetry 2023-08-07 21:31:00 99 /min [facility] Systolic blood pressure 2023-04-19 23:00:00 110 mm[Hg] [facility] Diastolic blood pressure 2023-04-19 23:00:00 66 mm[Hg] [facility] Heart rate 2023-04-19 23:00:00 83 /min [facility] Respiratory rate 2023-04-19 23:00:00 18 /min [facility] Oxygen saturation in Arterial blood by Pulse oximetry 2023-04-19 23:00:00 95 /min [facility] Systolic blood pressure 2023-04-19 17:43:00 135 mm[Hg] [facility] Diastolic blood pressure 2023-04-19 17:43:00 93 mm[Hg] [facility] Heart rate 2023-04-19 17:43:00 103 /min [facility] Body temperature 2023-04-19 17:43:00 36.83 [place] [facility] Respiratory rate 2023-04-19 17:43:00 18 /min [facility] Body weight 2023-04-19 17:43:[address] [facility] BMI 2023-04-19 17:43:00 23.01 kg/m2 [facility] Oxygen saturation in Arterial blood by Pulse oximetry 2023-04-19 17:43:00 97 /min [facility] Systolic blood pressure 2020-06-28 09:19:00 130 mm[Hg[facility] Diastolic blood pressure 2020-06-28 09:19:00 79 mm[Hg] [facility] Heart rate 2020-06-28 09:19:00 89 /min [facility] Body temperature 2020-06-28 09:19:00 35.78 [place] [facility] Respiratory rate 2020-06-28 09:19:00 16 /min [facility] Body height 2020-06-28 09:19:[address] [facility] Body weight 2020-06-28 09:19:00 74.844 kg [facility] BMI 2020-06-28 09:19:00 23.01 kg/m2 [facility] Oxygen saturation in Arterial blood by Pulse oximetry 2020-06-28 09:19:00 98 /min [facility] Systolic blood pressure 2020-06-28 09:19:00 130 mm[Hg] [facility] Diastolic blood pressure 2020-06-28 09:19:00 79 mm[Hg] [facility] Heart rate 2020-06-28 09:19:00 89 /min [facility] Body temperature 2020-06-28 09:19:00 35.78 [place] [facility] Respiratory rate 2020-06-28 09:19:00 16 /min [facility] Body height 2020-06-28 09:19:00 180.3 cm [facility] Body weight 2020-06-28 09:19:00 74.844 kg [facility] BMI 2020-06-28 09:19:00 23.01 kg/m2 [facility] Oxygen saturation in Arterial blood by Pulse oximetry 2020-06-28 09:19:00 98 /min [facility] Systolic blood pressure 2019-10-28 08:46:00 141 mm[Hg] [facility] Diastolic blood pressure 2019-10-28 08:46:00 91 mm[Hg] [facility] Heart rate 2019-10-28 08:46:00 105 /[facility] 2019-10-28 08:46:00 36.61 [place] [facility] Respiratory rate 2019-10-28 08:46:00 19 /min [facility] Body height 2019-10-28 08:46:00 180.3 cm [facility] Body weight 2019-10-28 08:46:00 74.844 kg [facility] BMI 2019-10-28 08:46:00 23.01 kg[facility]m2 [facility] in Arterial blood by Pulse oximetry 2019-10-28 08:46:00 99 /min [facility] Systolic blood pressure 2019-10-28 08:46:00 141 mm[Hg] [facility] Diastolic blood pressure 2019-10-28 08:46:00 91 mm[Hg] [facility] Heart rate 2019-10-28 08:46:00 105 /min [facility] Body temperature 2019-10-28 08:46:00 36.61 [place] [facility] Respiratory rate 2019-10-28 08:46:00 19 /min [facility] Body height 2019-10-28 08:46:[address] [facility] Body weight 2019-10-28 08:46:[address] [facility] BMI 2019-10-28 08:46:00 23.01 kg/m2 [facility] Oxygen saturation in Arterial blood by Pulse oximetry 2019-10-28 08:46:00 99 /min [facility] Procedures Procedure Date / Time Performed Performing Clinicia n Source ASSIGNMENT OF BENEFITS 2023-08-07 21:59:53 Docto r Unassigned, [place] [facility] RAPID INFLUENZA A/B 2023-08-07 21:53:00 Joe Lynn [facility] COVID-19 (ID NOW RAPID TESTING) 2023-08-07 21:53:00 Joe Lynn [facility] CONSENT/REFUSAL FOR DIAGNOSIS AND TREATMENT 2023-08-07 21:22:55 Doctor Unassigned, [place] [facility] BASIC METABOLIC PANEL (NA, K, CL, CO2, GLUCOSE, BUN, CREATININE, CA) 2023-04-19 21:31:00 Yara Serna [facility] CBC WITH DIFF 2023-04-19 21:31:00 [facility]. BLUE 2023-04-19 21:31:00 Anastacio Serna u S [facility] EXTRA TUBE DK. GREEN 2023-04-19 21:31:00 Brooke Serna [facility] CONSENT/REFUSAL FOR DIAGNOSIS AND TREATMENT 2023-04-19 17:31:55 Doctor Unassigned, [place] [facility] CONSENT/REFUSAL FOR DIAGNOSIS AND TREATMENT 2020-06-28 09:10:22 Doctor Unassigned, [place] [facility] Encounters Start Date/Time End Date/Time Encounter Type Admission Type Attending [facility] Care Facility Care Department Encounter ID Source 2023-08-07 15:32:00 2023-08-07 16:58:00 Emergency JOE ZACARIAS [facility] ERT [id number] [facility] 2023-08-07 15:32:00 2023-08-07 16:58:00 Emergency Joe Lynn [facility] 1.2.840.114 350.1.13.10 4.2.7.2.686 [id number] [facility] 2023-04-19 12:48:00 2023-04-19 19:06:00 Emergency X DAPHNE, YARA [facility] ERT [id number] [facility] 2023-04-19 12:48:00 2023-04-19 19:06:00 Emergency DaphneYara mina [facility] 1.2.840.114 350.1.13.10 4.2.7.2.686 [id number] [facility] 2023-04-18 17:31:00 2023-04-18 19:39:00 Emergency FER SILVA [facility] [id number] [facility] 2020-06-28 03:18:00 2020-06-28 03:41:00 Emergency Traci Mills [facility] 1.2.840.114 350.1.13.10 4.2.7.2.686 [id number] 2020-06-28 03:18:00 2020-06-28 03:41:00 [facility] 1.2.840.114 350.1.13.10 4.2.7.2.686 [id number] [facility] 2020-06-28 03:12:00 2020-06-28 03:12:00 Emergency X [facility] ERT [id number] [facility] 2020-06-28 00:00:00 2020-06-28 00:00:00 Orders Only Doctor Unassigned, [place] [facility] 1.2.840.114 350.1.13.10 4.2.7.2.686 [id number] 2020-06-28 00:00:00 2020-06-28 00:00:00 Orders Only Doctor Unassigned, [place] [facility] 1.2.840.114 350.1.13.10 4.2.7.2.686 [id number] [facility] 2019-10-28 03:52:43 2019-10-28 04:10:00 [facility] 1.2.840.114 350.1.13.10 4.2.7.2.686 [id number] 2019-10-28 03:52:43 2019-10-28 04:10:00 [facility] 1.2.840.114 350.1.13.10 4.2.7.2.686 [id number] [facility] 2019-10-28 03:52:43 2019-10-28 03:52:43 Emergency X TRACI MILLS [facility] ERT [id number] [facility] Notes Date/Time Note Provider Source 2023-08-07 16:55:46 JluhaoDoDWoPumXDKxVhHUKkeafkaGgtt6yD+c5 gmG2zX4z2+dSJEyrMLAdElSsh5792-52-54N91: 55:46 Pt given printed and verbal discharge instructions regarding nausea and vomiting, encouraged hydration. Teaching completed by Dr. LynnPrescriptarthur sent to pharmacyDiscussed ibuprofen and to take with food to avoid GI distress.Pt verbalized understanding of instructions, pt awake alert oriented, resp reg unlabored, skin w/d, color appropriate for race, moves all ext well,pt encouraged to follow up with pcp.Advised to seek medical attention for new/prolonged/worsening of symptoms,Awake, alert oriented, resp reg unlabored, skin w/d, pt leaving amb with steady gait, in no apparent distress, 91941-1Ragzspnth department JkibXJ1671-97-88O82:57:01[facility] department NoteTXT1.2.840.786882.1.13.104.2.7.2.72 7879|[id number] for patient llix10255-9OapsYVALCHZRMZTVxanjyfgn C-CDA narrative [id number] Whitfield RN[address] Cc[id number] RFOHLDVHWTNWIVEQFPX4133-69-04P83:57:011 .2.840.844972.1.72.3.15|1.2.840.514680. 1.13.104.2.7.2.727879_[id number] Bozena Whitfield RN [facility] 2023-08-07 15:30:43 zkOEzlI+sfngkS+vYnWWelXarjO+NdTRaPA19qU 5z003H0orZMKg0IYr4Ds984b76824-47-56C55: 30:43 Patient to ED for vomiting 2-3 times last night. Patient states, "I'm just here because my is getting seen so I figured I should too." No symptoms now 39846-3Vmjmgoqzh department Triage iemcDP4869-80-30X95:31:24[facility] Triage noteTXT1.2.840.173903.1.13.104.2.7.2.72 7879|[id number] for patient qaxb35488-5Zncmyjvix department NoteLNNARRATIVEFormatted C-CDA narrative text[address] Wj[id number] FKVYZUDHRXOWMOJXXNE9586-78-71N08:31:241 .2.840.589541.1.72.3.15|1.2.840.862390. 1.13.104.2.7.2.727879_[id number] [facility] 2023-08-07 15:22:00 samTKXIPVVdY1ekuIbIpyUGrDVd7Yj382pQY21t EDVc4o1LGn8sc2jOl0YKE7jcJ8685-07-50P11: 22:00 [facility] Emergency Department NotePatient Name: Gerber Willis JrMarinaDate of : 2000 23 year old maleTreatment Room: Room/bed info not foundMedical Record Number: [id number] Care Physician: PATIENT DOES NOT HAVE A PCPPatient Escorted by: Self [9]Mode of Arrival: Personal means [1]EMS Treatment Prior to ED Arrival:Travel and Exposure Screening:SymptomsDoes patient have any of these symptoms?: (not recorded)Exposure ScreeningHas patient had contact with someone with a communicable disease in the last month?: (not recorded)Diseases exposed to:: (not recorded)Is Patient ?: (not recorded)Exposure Date: (not recorded)Chief Complaint:Chief ComplaintPatient presents withOtherSymptoms resolvedHistory of Present Illness:Last night had sore throat, nausea and vomiting. sick with similar and came to the ED so he wanted to get checked. No current symptoms. No fever measured. No medications taken prior to arrivalPast Medical History/Immunizations:Past Medical History:Diagnosis DateBipolar 1 disorderSchizo affective schizophreniaAllergies:AllergiesAllerge n ReactionsAspirin (Bulk) SwellingTramadol Other - See commentsShakesPast Social History:Tobacco UseNeverPast Surgical History:No past surgical history on file.Review of Systems:Review of SystemsConstitutional: Negative for activity change, chills and fever.HENT: Positive for sore throat. Negative for congestion.Respiratory: Negative for cough and shortness of breath.Cardiovascular: Negative for chest pain.Gastrointestinal: Positive for nausea and vomiting. Negative for abdominal pain, constipation and diarrhea.Musculoskeletal: Negative for neck pain and neck stiffness.Skin: Negative for rash and wound.All other systems reviewed and are negative.Physical Exam:ED Triage Vitals [08/07/23 1531]Weight 108.9 kg (240 lb)Actual or estimatedHeight 1.829 m (6')BP (!) 141/89Pulse 98Resp 18Temp 36.9 ?C (98.4 ?F)Temp source OralSpO2 99 %Measured on Room airPhysical ExamVitals and nursing note reviewed.Constitutional:General: He is not in acute distress.Appearance: He is well-developed. He is obese.HENT:Head: Normocephalic and atraumatic.Right Ear: External ear normal.Left Ear: External ear normal.Mouth/Throat:Mouth: Mucous membranes are moist.Pharynx: Oropharynx is clear. No oropharyngeal exudate or posterior oropharyngeal erythema.Eyes:General: No scleral icterus.Neck:Vascular: No JVD.Cardiovascular:Rate and Rhythm: Normal rate and regular rhythm.Pulses: Normal pulses.Pulmonary:Effort: Pulmonary effort is normal. No respiratory distress.Abdominal:General: There is no distension.Musculoskeletal:General: No tenderness or deformity. Normal range of motion.Cervical back: Normal range of motion and neck supple.Skin:General: Skin is warm and dry.Capillary Refill: Capillary refill takes less than 2 seconds.Findings: No rash.Neurological:Mental Status: He is alert.Psychiatric:Mood and Affect: Mood normal.Behavior: Behavior normal.Thought Content: Thought content normal.Radiology:No orders to displayLab Results:Lab ResultsCOVID-19 (ID NOW RAPID TESTING) - NormalResult Value Ref DsvycMXTU-WdN-9 Rapid ID NOW Not Detected Not DetectedRAPID INFLUENZA A/B - NormalRapid Influenza A Negative NegativeRapid Influenza B Negative NegativeEKG:If EKG completed, see Procedure Note.Orders and Treatments:Orders Placed This EncounterProceduresCOVID-19 (ID NOW TESTING)RAPID INFLUENZA A/BLab Only COVID InterpretationOrders Placed This EncounterMedicationsondansetron (ZOFRAN-ODT) disintegrating tablet 4 mgondansetron 4 mg disintegrating tabletFirst Provider Eval:ED EventsDate/Time Event User Jdwdplsz80/31/231522 Medical Screening Begins JOE LYNN MD --08/07/231522 First Provider Evaluation JOE LYNN MD --ED COURSEDiagnosis/Impression as of 08/07/23 1651Nausea and vomiting, unspecified vomiting typeSore throatProcedures:ProceduresMDM:Medical Decision MakingLikely viral syndrome, sig other with similar. No complaints currently. Will give zofran, ibuprofen, check for covid and flu.Swabs neg. Clinically patient appears well, nontoxic, in NAD.Stable for discharge, follow up outpatient , prn zofranProblems Addressed:Nausea and vomiting, unspecified vomiting type: complicated acute illness or injurySore throat: self-limited or minor problemAmount and/or Complexity of Data ReviewedLabs: ordered. Decision-making details documented in ED Course.RiskOTC drugs.Prescription drug management.Flowsheet Documentation:Scoring Tools:No data recordedDisposition/Condition:ED DispositionED DispositionDisch - HomeConditionStableComment--Discharge Medications:Patient's MedicationsSTART taking these medicationsONDANSETRON 4 MG DISINTEGRATING TABLET Take 1 tablet by mouth every 8 (eight) hours as needed for Nausea and Vomiting (N/V).CONTINUE taking these medications which have NOT CHANGEDBENZONATATE 200 MG CAPSULE Take 1 capsule by mouth 3 (three) times daily as needed for Cough.BENZTROPINE (COGENTIN) 1 MG TABLET Take 1 mg by mouth 2 (two) times daily.BROMFED DM 2-30-10 MG/5 ML SYRUP Take 7.5 mL by mouth 4 (four) times daily as needed for Congestion/Allergies.CHLORPROMAZINE (THORAZINE) 100 MG TABLET Take 100 mg by mouth 3 (three) times daily.CIPRODEX 0.3-0.1 % OTIC DRPS 6 drops to infetced ear bid for 7 daysGUANFACINE (INTUNIV) 4 MG TB24 Take by mouth.METHYLPHENIDATE (CONCERTA) 36 MG 24 HR TABLET Take 36 mg by mouth every morning.PALIPERIDONE (INVEGA) 3 MG 24 HR TABLET Take 3 mg by mouth daily.PROMETHAZINE-CODEINE 6.25-10 MG/5 ML SYRUP Take 5 mL by mouth 4 (four) times daily as needed for Cough.SOD JNWIE-JFJFWL-BPYIVG BOTTLE (NEILMED SINUS RINSE COMPLETE) PKDV Use 1 Bottle in each nostril 2 (two) times daily. Use in hot shower 1 hour before bedtimeSTART taking Modified Medications as PrescribedNo medications on fileSTOP taking these medicationsNo medications on fileFollow-up:Electronically signed by:Joe Lynn MD08/07/23 1651 10874-9Pmvcgwgar Emergency department ZbssPW7693-76-57W69:51:18Physician Emergency department NoteTXT1.2.840.056103.1.13.104.2.7.2.72 7879|[id number] for patient dfex71549-5Yeysfcsht department NoteLNNARRATIVEFormatted C-CDA narrative text[address] Natg[id number] YLJYTCYAOCPKHHRJSSX8396-89-02B35:51:181 .2.840.977201.1.72.3.15|1.2.840.154636. 1.13.104.2.7.2.727879_[id number] [facility] 2023-04-19 19:05:31 3pL1oXdIxiP9yoGbLEcYXamYoKNNqhKIDScF4MH T2G3S/snur0A0j2lBYrejb31I0989-53-37W65: 05:31 Pt stable and ready for discharge patient provided with preferred teaching about diagnosis and expected course of illness, AVS and written/handout materials appropriate to problem and teaching. Patient states understanding and questions answered. Ambulatory to lobby with steady gait, no distress noted. 96433-1Cznrgqhoc department FcufLR2701-15-41E19:05:42[facility] NoteTXT1.2.840.831155.1.13.104.2.7.2.72 7879|[id number] for patient pfar28258-3HzdnTT051867719Sgpn A Brown RN[address] [id number] UQVTDFJUJXDSPPAWYKN0280-64-91B13:05:421 .2.840.430261.1.72.3.15|1.2.840.669561. 1.13.104.2.7.2.727879_[id number] Vernon Bowen RN [facility] 2023-04-19 17:22:23 /YJOaivKjPvqDTdUabrE7VoBJ0KQsCdRN/X1Kfm Y18JhBi8mp2v0MTQlbQxmbXdg7766-56-63S30: 22:23 Pt resting in bed comfortably in NAD 32053-8Wvovdcrch department CcgtNG5194-95-48R96:22:35[facility] department NoteTXT1.2.840.512849.1.13.104.2.7.2.72 7879|[id number] for patient wsjy43407-5VqimZLSAJBWWRD[address] [id number] LBZZHRXSQVCEQCTIGIX8392-44-48W80:22:351 .2.840.390897.1.72.3.15|1.2.840.963322. 1.13.104.2.7.2.727879_[id number] [facility] 2023-04-19 16:45:00 aG4jZ84PhEsObDb+EpRqpyWRCA1ZX6xG0YvZ5u6 K9e0bSJ1MCk8EOtMo6gKUwYXY1602-41-85A05: 45:[address] [place] [address]-[address] [place] [address] GsbsNY1115-35-97M25:47:11[facility] NoteTXT1.2.840.207506.1.13.104.2.7.2.72 7879|[id number] for patient mugh23353-0RvobTSQSZWIOHC99 [address] [id number] ZGHJAVOGVDEHKDBFOKB1761-80-12A01:47:111 .2.840.297523.1.72.3.15|1.2.840.797877. 1.13.104.2.7.2.727879_[id number] [facility] 2023-04-19 16:06:41 baEKLhSFBRYltgNKbywuk4/X4RsQlTWaWfdWx4M 1kPrgnVtKingU6gjuADAWmjfD8764-94-67F98: 06:41 Gerber Patton Alba Samuels. is a 23 year [...] c/o increased bloating for last 4-5 months. [address]-0Mkrivpsxs[address] PdilBO4160-76-47Q63:07:04[facility] NoteTXT1.2.840.640519.1.13.104.2.7.2.72 7879|[id number] for patient jzur31272-0BricUQYLRIAQSS99 [id number] GTPEBADWMAHNISIMVRT2457-22-27F01:07:041 .2.840.305058.1.72.3.15|1.2.840.959872. 1.13.104.2.7.2.727879_[id number] [facility] 2023-04-19 12:45:57 UAMuKpa0joWSE7n+LmRz6fkXbfj1onILKGHBGRJ dUgFolOflEjA7BoNOdei3JMlU9790-97-81I42: 45:57 Gerber Patton Alba Walters is a 23 year old male to ED for abd pain. Pt reports hx of ex lap approx 3 years ago with a stitch that was never removed, pt reports unhealing wound with stitch sticking out. Pt reports he was seen at OSH yesterday and they cut the stitch and now pain has increased. 11652-9Cudrlnoaq department Triage jxhcZL8846-39-29T13:48:15[facility] Triage noteTXT1.2.840.254928.1.13.104.2.7.2.72 7879|[id number] for patient anlg57427-2Cmsyzzvfh department [id number] L Strimple RN[address] QgfmDptzbzakyDymkppewqPTKK4719827808VHK ZFJMNFBQEQTECLWVXUL8871-90-75C21:48:151 .2.840.319317.1.72.3.15|1.2.840.901174. 1.13.104.2.7.2.727879_[id number] Gisella Moncada RN [facility] 2023-04-19 12:31:00 oOXZPHHYOhk+rUVQh2mN0TNtNUzuc5bmqtP7wHb MbkzPUMXEMhIVQSY/ULlWyD7q8411-62-28F81: 31:00 Addendum:I personally evaluated and examined this patient and [...] as needed.CLINICAL IMPRESSION:Abdominal painDISPO: DischargeCONDITION: Taylor Serna MDEmerencompass health rehabilitation hospital Medicine Yara Serna MD04/19/23 1839 35683-0Mrndxgfgt Emergency department TmhpRX0062-09-76O64:39:55Physician Emergency department NoteTXT1.2.840.204952.1.13.104.2.7.2.72 7879|[id number] for patient dsgx29458-4Zfnwpdbvp department Note[address] KxnxPtwpdlczfEpfwkupjsJRGJ9038956753JEQ WZWZYKKICYHSEGZSXAS6554-87-66A34:39:551 .2.840.723495.1.72.3.15|1.2.840.306286. 1.13.104.2.7.2.727879_[id number] [facility]
--- NOTE | 2023-12-17 22:31 | ER ---
Nurse's Notes [facility] Name: Gerber Willis Jr Age: 23 yrs Sex: Male : 2000 Arrival Date: 12/17/2023 Time: 22:03 Bed 12 Private MD: Diagnosis: Contusion of right lesser toe(s) with damage to nail, initial encounter Presentation: 12/16 22:14 Chief complaint: Patient states: Broke the nail on the 4th toe of his right foot and cm10 would like to have his nail removed. Coronavirus screen: Client denies travel out of the [place] in the last 14 days. At this time, the client does not indicate any symptoms associated with coronavirus-19. Ebola Screen: Patient denies travel to an Ebola-affected area in the 21 days before illness onset. No symptoms or risks identified at this time. Initial Sepsis Screen: Does the patient meet any 2 criteria? HR > 90 bpm. Does the patient have a suspected source of infection? No. Patient's initial sepsis screen is negative. Risk Assessment: Do you want to hurt yourself or someone else? Patient reports no desire to harm self or others. Onset of symptoms was December 17, 2023. 22:14 Method Of Arrival: Ambulatory cm10 22:14 Acuity: MORIS 4 cm10 Triage Assessment: 22:16 General: Appears in no apparent distress. comfortable, Behavior is calm, cooperative. cm10 Pain: Denies pain. Neuro: No deficits noted. Level of Consciousness is awake, alert, obeys commands, Oriented to person, place, time, situation, Appropriate for age. Respiratory: No deficits noted. Airway is patent Respiratory effort is even, unlabored, Respiratory pattern is regular, symmetrical. Derm: Toe nail broken on 4th toe of right foot. Historical: - Allergies: 22:16 Aspirin; cm10 22:16 tramadol; cm10 - PMHx: 22:16 ADD/ADHD; Anxiety; Bipolar disorder; Depression; cm10 - Immunization history:: Adult Immunizations up to date, Last tetanus immunization: unknown. - Infectious Disease History:: Denies. - Social history:: Smoking status: Patient reports the use of cigarette tobacco products, smokes one pack cigarettes per day. Reported history of juuling and/or vaping. Screenin:17 [facility] ED Fall Risk Assessment (Adult) History of falling in the last 3 months, cm10 including since admission No falls in past 3 months (0 pts) Confusion or Disorientation No (0 pts) Intoxicated or Sedated No (0 pts) Impaired Gait No (0 pts) Mobility Assist Device Used No (0 pt) Altered Elimination No (0 pt) Score/Fall Risk Level 0 - 2 = Low Risk Oriented to surroundings, Maintained a safe environment, Hourly rounding (assess needs \T\ fall precautionary measures) done. Abuse screen: Denies threats or abuse. Denies injuries from another. Nutritional screening: No deficits noted. Tuberculosis screening: No symptoms or risk factors identified. Vital Signs: 22:14 BP 145 / 82; Pulse 104; Resp 18; Temp 98(IR); Pulse Ox 97% on R/A; Weight 117.93 kg; cm10 Height 5 ft. 11 in. ; Pain 0/10; 22:14 Body Mass Index 36.26 (117.93 kg, 180.34 cm) cm10 22:14 Pain Scale: Adult cm10 ED Course: 22:08 Patient arrived in ED. gm2 22:09 Hailee Bowen PA-C is PHCP. sb4 22:09 Vernon Mckeon MD is Attending Physician. sb4 22:16 Triage completed. cm10 22:17 Arm band placed on Patient placed in an exam room, on a stretcher. cm10 22:17 Patient has correct armband on for positive identification. Bed in low position. Call cm10 light in reach. Provided Education on: ER process and procedures. 22:17 Patient did not have IV access during this emergency room visit. cm10 22:35 No provider procedures requiring assistance completed. cm10 Administered Medications: No medications were administered Medication: 22:17 VIS not applicable for this client. cm10 Outcome: 22:31 Discharge ordered by . sb4 22:35 Discharged to home ambulatory, cm10 22:35 Condition: good 22:35 Discharge instructions given to patient, Instructed on discharge instructions, follow up and referral plans. Demonstrated understanding of instructions, follow-up care, 22:36 Patient left the ED. cm10 Signatures: Hailee Bowen PA-C PA-C sb4 Nkechi Mccallum RN RN cm10 Berenice Pabon gm2
--- NOTE | 2023-12-17 22:31 | EDPHYS ---
Physician Documentation [facility] Name: Gerber Willis Jr Age: 23 yrs Sex: Male : 2000 Arrival Date: 12/17/2023 Time: 22:03 Bed 12 Private MD: ED Physician Vernon Mckeon HPI: 12/16 22:59 This 23 yrs old Male presents to ER via Ambulatory with complaints of Toe Injury. sb4 22:59 Patient states that he stubbed his right foot a few days ago and his fourth toenail is sb4 hanging off. He comes in requesting it to be removed. Historical: - Allergies: 22:16 Aspirin; cm10 22:16 tramadol; cm10 - PMHx: 22:16 ADD/ADHD; Anxiety; Bipolar disorder; Depression; cm10 - Immunization history:: Adult Immunizations up to date, Last tetanus immunization: unknown. - Infectious Disease History:: Denies. - Social history:: Smoking status: Patient reports the use of cigarette tobacco products, smokes one pack cigarettes per day. Reported history of juuling and/or vaping. ROS: 22:59 Constitutional: Negative for fever, chills, and weight loss, sb4 22:59 Skin: Positive for Per HPI, 22:59 All other systems are negative, Exam: 23:07 Constitutional: This is a well developed, well nourished patient who is awake, alert, sb4 and in no acute distress. Head/Face: Normocephalic, atraumatic. Eyes: Extra-ocular motions intact. Periorbital areas with no swelling, redness, or edema. 23:07 Skin: poor hygiene noted to bilateral feet. right 4th toenail long-term detached at nailbed. no drainage or surrounding erythema. Vital Signs: 22:14 BP 145 / 82; Pulse 104; Resp 18; Temp 98(IR); Pulse Ox 97% on R/A; Weight 117.93 kg; cm10 Height 5 ft. 11 in. ; Pain 0/10; 22:14 Body Mass Index 36.26 (117.93 kg, 180.34 cm) cm10 22:14 Pain Scale: Adult cm10 Procedures: 23:07 right 4th toe nail removed with hemostats. tolerated well. sb4 MDM: 22:22 Patient medically screened. sb4 23:07 Data reviewed: vital signs, nurses notes, and as a result, I will discharge patient. sb4 Counseling: I had a detailed discussion with the patient and/or guardian regarding the historical points, exam findings, and any diagnostic results supporting the discharge/admit diagnosis, to return to the emergency department if symptoms worsen or persist or if there are any questions or concerns that arise at home. Administered Medications: No medications were administered Disposition: 23:03 Co-signature as Attending Physician, Vernon Mckeon MD I reviewed the patient's care rt provided by the Advanced Practice Provider and agree with the diagnosis and treatment plan. Disposition Summary: 12/17/23 22:31 Discharge Ordered Notes: Location: Home sb4 Problem: new sb4 Symptoms: have improved sb4 Condition: Stable sb4 Diagnosis - Contusion of right lesser toe(s) with damage to nail, initial encounter sb4 Followup: sb4 - With: Private Physician - When: As needed - Reason: Recheck today's complaints, Re-evaluation by your physician Discharge Instructions: - Discharge Summary Sheet sb4 - Fingernail or Toenail Removal, Adult, Care After sb4 Forms: - Patient Portal Instructions sb4 - Leadership Thank You Letter sb4 Signatures: Hailee Bowen PA-C PA-C sb4 Vernon Mckeon MD MD rt Nkechi Mccallum, RN RN cm10
[2023-12-17 22:42] VITALS: BP 145/82; TEMP 98; O2SAT 97
== END 2023-12-17 22:36 | disposition home or self-care (01) ==
LOC: ER 22:03
DX: S90.221A Contusion of right lesser toe(s) with damage to nail, initial encounter (principal); Z88.5 Allergy status to narcotic agent; Z88.6 Allergy status to analgesic agent
CPT/HCPCS: 99282